=== PATIENT | female | born 1940 | race Caucasian/White ===

== ENCOUNTER 2018-04-13 16:28 | Emergency (ER) | payer MEDICARE, OTHER ==
--- NOTE | 2018-04-16 15:25 | ER ---
DATE SEEN: 04/13/2018 TIME SEEN: 1645 hours. HISTORY OF PRESENT ILLNESS: This pleasant 77-year-old woman, who has Parkinson's, who has had a graduation democrat at the [employer], and she was sitting at the park bench, and she fell backwards. She uses a cane normally. She is fairly active, lives in apartment. She does her own housekeeping and cooking. PAST MEDICAL HISTORY: Significant for Parkinson's, restless legs. She denies hypertension, heart attack, stroke, or asthma. 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 No history of Lewy body dementia or dementia. She has problems with insomnia, and depression. She is not taking antidepressants and anti-insomnia medicines. PREVIOUS SURGERIES: ABS BSO. CURRENT MEDICATIONS: 1. Carbidopa/Levodopa 25/100 t.i.d. 2. Calcium carbonate. 3. Vitamin D. 4. Vitamins. 5. Multivitamins. 6. Mirtazapine 15 mg at bedtime. 7. Colace b.i.d. ALLERGIES: None. REVIEW OF SYSTEMS: HEENT: Negative. She wears glasses. She has no decreased hearing. She is not wearing hearing aids. Previous cataract surgery. CARDIORESPIRATORY: She denies chest pain, shortness of breath, irregular heart beat, pedal edema, syncope, or near syncope. Denies cough or shortness of breath or dyspnea on exertion. GI: Without diarrhea, constipation, blood in the stool, black tarry stool, change in bowels or GERD or hepatitis or gallbladder disease. MUSCULOSKELETAL: Negative. She denies hip or knee arthritis. NEURO: She has gait instability. She uses a cane to stabilize her Parkinson's. She has a slow mental fall away. She is attended by a son and [id number], are very attentive. They are here in emergency room with her. She lives in an apartment and does well and does her own housekeeping and also cooking. PHYSICAL EXAMINATION: VITAL SIGNS: Blood pressure 90/55, heart rate 83, respirations 18, oxygen saturation 94, weight 68.03 kg, BMI 25.7 kg/m2. CONSTITUTIONAL: The patient is sitting in a chair. She has signs of Parkinson's tremor in her upper extremities. No titlatition of her head. She has slight right nasal labial slight droop compared to the other side, the normal side, of her face. PERRLA intact. Previous cataract surgery noted. Eyegrounds normal for age without AV nicking. Pharynx without abnormality. Gag in place. Uvula midline. Tongue midline. She has no fasciculations of the tongue. NECK: No bruits. No thyromegaly or masses in her neck. HEART: S1, S2. S2 is greater than S1. No murmur. LUNGS: Clear without rales, rhonchi, or wheezes. No chest wall discomfort with palpation. ABDOMEN: Nontender. No guarding. No abdominal discomfort. Moderate increased abdominal girth without abnormality in bowel sounds. MUSCULOSKELETAL: No cervical, thoracic, lumbar spinous process or paraspinal muscle tenderness. Deep tendon reflexes present upper and lower extremities. Gait is with slight truncal flexion. She uses a cane and little short steps but she does quite well. Romberg is negative. IMAGING DATA: CT of the head is without abnormality except for microvascular changes and moderate atrophy with widening of the gyri. Cervical spine with some degenerative changes, mild subluxation at C6 and C7 but not abnormal. Mild arthritis. LABORATORY FINDINGS: CBC is normal with a hemoglobin 12.4, white count 5600, PMNs 70, lymphs 20, monos 6.6. Complete metabolic panel is normal except for BUN is 24, creatinine 1.6 with GFR of 31 from her chronic kidney disease stage 3. Not unusual for age. BUN and creatinine ratio is 50. No suggestion of dehydration. Mild elevation of glucose 120 otherwise. AST trace elevated at 38 and alkaline phosphatase trace elevated 52 with a troponin less than 0.017. EKG suggests old anterior myocardial infarction, sinus rhythm, left anterior hemiblock. ASSESSMENT: 1. Fall. 2. Concussion. 3. No evidence for laceration to scalp. 4. Mild hematoma of the scalp posteriorly. 5. Parkinson's. 6. Fall is not unusual for a woman who has Parkinson's to fall backwards, or having gait instability or ataxia. She did not demonstrate ataxia with walking, but has to walk with a cane and has a slight compensatory truncal flexion and short gaits. 7. No hypertension. 8. Old anterior myocardial infarction. PLAN: The patient is advised she can go home. She will follow up with doctor this week. She needs responsible adult to be with her for the next 24 hours and if she is not stable they will need to stay longer and stay with her until she recovers satisfactory and her gait returns to what would be considered normal by the family. Also, when she is sitting, she is to use posterior chair support, and she also needs to have somebody "watch her back" tends to have posterior "festination" and the risk of falling backwards is just as great as falling forward with her Parkinson's. /[id number] VINCENT CONNELLY
== END 2018-04-13 18:00 | disposition home or self-care (01) ==
LOC: FB.ED 16:28
DX: S06.0X0A Concussion without loss of consciousness, initial encounter (principal); S00.03XA Contusion of scalp, initial encounter; G20 Parkinson's disease; I25.2 Old myocardial infarction; N18.9 Chronic kidney disease, unspecified; W17.89XA Other fall from one level to another, initial encounter; Y92.830 Public park as the place of occurrence of the external cause; Z79.899 Other long term (current) drug therapy
CPT/HCPCS: 36415; 70450; 72125; 80053; 84484; 85025; 93005; 93010; 99283; 99284

== ENCOUNTER 2020-02-20 15:20 | Emergency (ER) | payer MEDICARE, OTHER ==
[2020-02-20] MEDS ORDERED: Acetaminophen/HYDROcodone 325-5 MG Tab PO ONE (15:47)
--- NOTE | 2020-02-20 15:54 | EDM.PDOC ---
ED HPI GENERAL MEDICAL PROBLEM - General Chief Complaint: Back Pain or Injury Stated Complaint: FALL Time Seen by Provider: 02/20/20 15:40 Source of Information: Reports: Patient History Limitations: Reports: No Limitations - History of Present Illness INITIAL COMMENTS - FREE TEXT/NARRATIVE: pt has parkinsons, was walking at home when she fell on her left side . denies head injury , has pain in the left rib area and the mid thoracic back . fell about an hour before presentation , was able to get up after fall has no sob but pain is persistent , worse with movement and taking a deep breath Onset: Sudden Onset Date: 02/20/20 Onset Time: 14:50 Duration: Getting Worse, Waxing/Waning Location: Reports: Chest (left lower ribs laterally), Back (thoracic) Quality: Reports: Ache, Dull Severity: Moderate Improves with: Reports: Cold Therapy Worsens with: Reports: Movement Context: Reports: Other (walking at home) Associated Symptoms: Denies: Confusion, Cough, Headaches, Malaise, Nausea/ Vomiting, Shortness of Breath, Syncope, Weakness Left Back Pain Score (Numeric/FACES): 6 Left Chest Pain Score (Numeric/FACES): 6 - Related Data Allergies Allergy/AdvReac Type Severity Reaction Status Date / Time latex Allergy Other Verified 06/11/18 23:31 Home Meds: Home Meds Carbidopa/Levodopa [Carbidopa-Levodopa 25-100] 1 tab PO TID 05/20/14 [History] Calcium Carbonate/Vitamin D3 [Caltrate 600 Plus D3 Tablet] 1 each PO TID [History] Multivitamin [Multiple Vitamins] 1 each PO DAILY 05/21/14 [History] Docusate Sodium [Colace] 100 mg PO BID PRN #30 cap 05/25/14 [Rx] Mirtazapine 15 mg PO BEDTIME 30 Days tablet 05/25/14 [Rx] LORazepam [Ativan] 1 mg PO TID PRN 06/11/18 [History] Sertraline [Zoloft] 50 mg PO DAILY 06/11/18 [History] Past Medical History HEENT History: Reports: Impaired Vision LIVE OUT NANNY History: Reports: Musculoskeletal History: Reports: Other (See Below) Other Musculoskeletal History: has Parkinsons. Neurological History: Reports: Parkinson's Psychiatric History: Reports: Depression Social & Family History - Family History Family Medical History: Noncontributory - Tobacco Use Smoking Status *Q: Never Smoker - Caffeine Use Caffeine Use: Reports: Coffee - Recreational Drug Use Recreational Drug Use: No - Living Situation & Occupation Living situation: Reports: Alone ED ROS GENERAL - Review of Systems Review Of Systems: Comprehensive ROS is negative, except as noted in HPI. Constitutional: Reports: Weakness HEENT: Reports: No Symptoms Respiratory: Denies: Shortness of Breath, Cough, Sputum Cardiovascular: Reports: No Symptoms GI/Abdominal: Reports: No Symptoms Musculoskeletal: Reports: Back Pain, Muscle Pain, Muscle Stiffness Skin: Reports: No Symptoms Neurological: Reports: Difficulty Walking. Denies: Confusion, Dizziness, Headache Psychiatric: Reports: Anxiety Hematologic/Lymphatic: Reports: No Symptoms Immunologic: Reports: No Symptoms ED EXAM, UPPER BACK/NECK PAIN - Physical Exam Exam: See Below Exam Limited By: No Limitations General Appearance: Alert, WD/WN, No Apparent Distress, Other (intention tremors , tremors at rest) Eye Exam: Bilateral Eye: EOMI Ears Exam: Normal External Exam Nose Exam: Normal Inspection Throat/Mouth Exam: Normal Inspection Head Exam: Atraumatic, Normocephalic Neck Exam: Full Range of Motion, Normal Alignment. No: Spinous Processes Tender , Stiff Neck, Tenderness Nexus Criteria: No: Posterior, Midline Cervical Tenderness, Altered Level of Consciousness, Focal Neurological Deficit Cardiovascular/Respiratory: Regular Rate, Rhythm, No Respiratory Distress GI/Abdominal: Soft, Non-Tender, No Organomegaly Back Exam: Decreased Range of Motion, Vertebral Tenderness (in thoracic spin area T6-7) Extremities: Normal Inspection Neurologic: No Motor/Sensory Deficits, Alert, Oriented x 3, Motor Weakness, Other (resting tremors) Psychiatric: Normal Affect Skin Exam: Normal Color, Warm/Dry Lymphatic: No Adenopathy Course - Vital Signs Last Recorded V/S: Last Vital Signs Temp 36.7 C 02/20/20 18:12 Pulse 78 02/20/20 18:12 Resp 18 02/20/20 18:12 BP 157/87 H 02/20/20 18:12 Pulse Ox 94 L 02/20/20 18:12 - Orders/Labs/Meds Meds: Medications Discontinued Medications Generic Name Dose Route Start Last Admin Trade Name Freq PRN Reason Stop Dose Admin Hydrocodone Bitart/Acetaminophen 1 tab 02/20/20 15:47 02/20/20 15:52 [place] 325-5 Mg PO 02/20/20 15:48 1 tab ONETIME ONE Administration - Re-Assessments/Exams Free Text/Narrative Re-Assessment/Exam: 02/20/20 18:00 call made to Jana 02/20/20 18:04 pt accepted for transfer to the ER 02/21/20 02:29 Departure - Departure Time of Disposition: 18:25 Disposition: DC/Tfer to Acute Hospital 02 Condition: Fair Clinical Impression: Multiple rib fractures involving four or more ribs, Compression fracture of thoracic spine, non-traumatic, Parkinson's disease - Discharge Information *PRESCRIPTION DRUG MONITORING PROGRAM REVIEWED*: Not Applicable *COPY OF PRESCRIPTION DRUG MONITORING REPORT IN PATIENT BRANDEN: Not Applicable Referrals: Anoop Oleary MD [Primary Care Provider] - Forms: ED Department Discharge Sepsis Event Note - Evaluation Sepsis Screening Result: No Definite Risk - Focused Exam Vital Signs: Vital Signs Temp Pulse Resp BP Pulse Ox 02/20/20 18:12 36.7 C 78 18 157/87 H 94 L 02/20/20 15:26 36.2 C 95 18 155/80 H 100 Date Exam was Performed: 02/21/20 Time Exam was Performed: 02:29
--- NOTE | 2020-02-20 18:27 | CR ---
INDICATION: Fall. Left rib pain. LEFT RIBS WITH CHEST: An AP view of the chest and 4 additional views of the left ribs were obtained 02/20/20 and compared with chest x-ray of 06/11/18. There are probable linear atelectatic changes at the left lung base. There may be some contusion also in the area of the lingula. Rib fractures are noted at the 5th, 6th, 7th, 8th, and 9th ribs with 2 fractures - lateral and more anteriorly and lateral at the 7th, 8th, and 9th ribs. There is some angulation and offset at the fracture sites. Some of the fractures overlie the area of the spleen as well as the the lower lung field. The heart appeared to be within normal limits in size, but there may be some left ventricular enlargement specifically. The aorta is tortuous with calcification in the arch. The right lung and pleural space were unremarkable. IMPRESSION: 1. Multiple fractures of the left ribs including 5-9 with 2 sites of fracture laterally and anterolaterally at the 7th, 8th, and 9th ribs on the left. 2. Probable ASHD. 3. Appearance of a dextroconvex scoliosis, which may be positional at the thoracolumbar spine. Report was called to Dr. Myers at approximately 1702 hours. [facility]
--- NOTE | 2020-02-20 18:28 | CR ---
INDICATION: Fall. THORACIC SPINE: Frontal and lateral views of the thoracic spine were obtained 02/20/20 - no comparisons. There is an appearance of mild to moderate dextroconvex scoliosis at the lower thoracic - thoracolumbar spine. Anterior compression fracture is noted at what appears to be T9. It is of indeterminate age, most likely old. No finding to strongly suggest a definite acute fracture site was identified. There is demineralization suggesting osteoporosis. Calcifications are noted incidentally in the aorta. Incidentally noted are multiple rib fractures at the 5th through 9th left ribs with fracture sites x2 at the 7th, 8th, and 9th ribs. Report was called to Dr. Myers at approximately 1702 hours. [facility]
== END 2020-02-20 18:37 ==
LOC: FB.ED 15:20
DX: S22.42XA Multiple fractures of ribs, left side, initial encounter for closed fracture (principal); M48.54XA Collapsed vertebra, not elsewhere classified, thoracic region, initial encounter for fracture; G20 Parkinson's disease; Z91.040 Latex allergy status; Z79.899 Other long term (current) drug therapy; W18.30XA Fall on same level, unspecified, initial encounter
CPT/HCPCS: 71101; 72072; 99284; A9270; 99285

== ENCOUNTER 2020-04-01 14:12 | Inpatient (IN) | payer MEDICARE, OTHER ==
--- NOTE | 2020-04-01 14:15 | EDM.PDOC ---
ED HPI GENERAL MEDICAL PROBLEM - General Stated Complaint: WEAKNESS Time Seen by Provider: 04/01/20 14:14 Source of Information: Reports: EMS, Assisted Records History Limitations: Reports: Altered Mental Status (Patient is not really verbally communicative. She is able to answer some questions but cannot provide any meaningful type history.) - History of Present Illness INITIAL COMMENTS - FREE TEXT/NARRATIVE: 79-year-old female who was recently admitted to [facility] and rehabilitation after being at [facility] for a month and then for a short period of time at a rehabilitation facility in [place]. This was following a fall with multiple left-sided rib fractures and complications related to this. She was seen initially for that at this facility and sent to [facility] in [place] for admission. The history that I obtained is obtained through the EMS staff and reports from the long term and is limited secondary to this. She apparently has Parkinson's disease but is usually able to ambulate and isn't verbally communicative and alert and interactive with staff. It was noted beginning may be last night and certainly today that she was less verbally responsive and weak, not being able to walk and requiring assistance to do most things. She also seemed to be more agitated and picking at things that weren't there with her hands. There were no reports of vomiting. She had little if anything to eat or drink today. She did not appear to have any respiratory difficulties but did have low O2 saturations with an O2 saturation measured at 84% (she is not currently on oxygen chronically). There were some reports of a low-grade fever. The patient had not been complaining of any pain to the long term staff and denied any pain to the EMS personnel and also to myself. Her O2 saturations climbed to 96% on 4 L/m via nasal cannula. This is really all the history that I can obtain. There are no other associated signs or symptoms. There are no other modifying factors. Onset: Today (Noted by nursing staff at [facility] today and maybe beginning last night.) Duration: Getting Worse Location: Reports: Other (Not applicable) Quality: Reports: Other (Nonapplicable) Improves with: Reports: None Worsens with: Reports: None Context: Reports: Other (As above) Associated Symptoms: Reports: Fever/Chills, Loss of Appetite Treatments [employer]: Reports: Other (see below) (Family) Left Hip Pain Score (Numeric/FACES): 5 - Related Data Allergies Allergy/AdvReac Type Severity Reaction Status Date / Time latex Allergy Other Verified 04/01/20 15:12 Home Meds: Home Meds Carbidopa/Levodopa [Carbidopa-Levodopa 25-100] 2 tab PO Q6H 05/20/14 [History] Acetaminophen with Codeine [Tylenol with Codeine #3 Tablet] 2 each PO TID [History] Cholecalciferol (Vitamin D3) [Vitamin D3] 50 mcg PO BEDTIME 04/01/20 [History] Gabapentin [Neurontin] 100 mg PO TID 04/01/20 [History] Lidocaine 5% [Lidoderm 5%] 1 patch TOP DAILY 04/01/20 [History] Magnesium Hydroxide [Milk of Magnesia] 30 ml PO DAILY PRN 04/01/20 [History] Melatonin 3 mg PO BEDTIME 04/01/20 [History] Mirtazapine 30 mg PO BEDTIME 04/01/20 [History] Sennosides/Docusate Sodium [Senna-S] 2 tab PO DAILY 04/01/20 [History] Sertraline [Zoloft] 100 mg PO DAILY 04/01/20 [History] Past Medical History HEENT History: Reports: Impaired Vision Musculoskeletal History: Reports: Osteoarthritis Neurological History: Reports: Parkinson's Psychiatric History: Reports: Depression - Past Surgical History GI Surgical History: Reports: Other (See Below) (PEG tube placed.) Social & Family History - Tobacco Use Smoking Status *Q: Unknown Ever Smoked (Nonsmoker) - Caffeine Use Caffeine Use: Reports: Coffee - Living Situation & Occupation Living situation: Reports: Extended Care Facility (Currently residing at [facility] and rehabilitation) ED ROS GENERAL - Review of Systems Review Of Systems: See Below (Patient does answer some questions with single word answers and other information is garnered from the EMS staff and the long term report. Review of systems is limited however because of the patient 's terminal status and being nonverbal.) Reason Not Obtained: Patient with altered mental status and nonverbal Constitutional: Reports: Fever, Weakness Respiratory: Reports: Other (Low O2 saturations) Cardiovascular: Reports: No Symptoms GI/Abdominal: Reports: No Symptoms Neurological: Reports: Weakness Psychiatric: Reports: Agitation Hematologic/Lymphatic: Reports: No Symptoms Immunologic: Reports: Other (Negative COVID 19 test on 03/22/2020.) ED EXAM, GENERAL - Physical Exam Exam: See Below Exam Limited By: No Limitations General Appearance: Alert, WD/WN, Moderate Distress (Seems to be somewhat hyperkinetic. Rest. To stress noted.) Eye Exam: Bilateral Eye: EOMI, Normal Inspection (Sclera are anicteric) Ears: Normal External Exam Ear Exam: Bilateral Ear: Auricle Normal Nose: Normal Inspection, Normal Mucosa, No Blood Throat/Mouth: Normal Voice, No Airway Compromise, Other (Dry mucous membranes) Head: Atraumatic, Normocephalic Neck: Normal Inspection, Supple, Non-Tender, Full Range of Motion Respiratory/Chest: No Respiratory Distress, No Accessory Muscle Use, Chest Non- Tender, Decreased Breath Sounds (On left somewhat.) Cardiovascular: Normal Peripheral Pulses, Regular Rate, Rhythm, No Murmur Peripheral Pulses: 2+: Radial (L), Radial (R), Dorsalis Pedis (L), Dorsalis Pedis (R) GI/Abdominal: Normal Bowel Sounds, Soft, Non-Tender, Distended Back Exam: Normal Inspection Extremities: Non-Tender, Normal Capillary Refill, Pedal Edema Neurological: Alert, No Motor/Sensory Deficits, Disoriented, Slow to Respond, Other (Almost nonverbal) Skin Exam: Warm, Dry, Intact, Normal Color, Rash (In area under her left breast and in her groin areas which is consistent with yeast type rash and has been present for some time per report.) EKG INTERPRETATION EKG Date: 04/01/20 Time: 15:03 Rhythm: NSR Rate (Beats/Min): 93 Delight: LAD-Left Delight Deviation (Left anterior fascicular block) P-Wave: Present ST-T: Other (Diffuse nonspecific ST-T changes) QT: Normal SD/PQ Interval: Poor R-wave progression Comparison: No Change (EKG on 06/11/2018 was read as a flutter but this was due to artifact. There is really no change in this EKG from EKG performed on 2017.) Course - Vital Signs Last Recorded V/S: Last Vital Signs Temp 37.3 C 04/01/20 14:42 Pulse 92 04/01/20 14:42 Resp 20 04/01/20 14:42 BP 137/62 04/01/20 14:42 Pulse Ox 100 04/01/20 14:42 - Orders/Labs/Meds Orders: Active Orders 24 hr Category Date Time Status Admission Status [Patient Status] [ADT] Routine ADT 04/01/20 16:30 Active Patient Status Manage Transfer [TRANSFER] Routine ADT 04/01/20 16:34 Ordered Bladder Scan [RC] ONETIME Care 04/01/20 14:28 Active EKG Documentation Completion [RC] ASDIRECTED Care 04/01/20 14:25 Active Insert Reyes Catheter [Insert Urinary Catheter] [OM.PC] Care 04/01/20 14:30 Ordered Q24H Urinary Catheter Assessment [RC] QSHIFT Care 04/01/20 14:30 Active Vital Signs [RC] Q4H Care 04/01/20 16:32 Active Nothing per Oral Now Diet [DIET] Diet 04/02/20 Breakfast Ordered Ang Chest [CT] Stat Exams 04/01/20 15:37 Taken C DIFFICILE AG/TOXIN W/REFLEX [RM] Stat Lab 04/01/20 16:22 Ordered CULTURE BLOOD [BC] Urgent Lab 04/01/20 14:50 Received CULTURE BLOOD [BC] Urgent Lab 04/01/20 14:55 Received CULTURE URINE [RM] Stat Lab 04/01/20 14:40 Ordered Pharmacy to Dose - Vancomycin Med 04/01/20 16:45 Ordered 1 dose .XX ASDIRECTED Piperacillin/Tazobactam [Zosyn] 3.375 gm Med 04/01/20 16:45 Active Sodium Chloride 0.9% [Normal Saline] 50 ml IV Q6H Blood Culture x2 Reflex Set [OM.PC] Urgent Oth 04/01/20 14:23 Ordered Resuscitation Status Stat Resus Stat 04/01/20 16:32 Ordered EKG 12 Lead [EK] Routine Ther 04/01/20 14:23 Ordered Medication Orders Piperacillin Sod/Tazobactam (Sod 3.375 gm/ Sodium Chloride) 50 mls @ 100 mls/ hr IV Q6H NASREEN Vancomycin HCl (Pharmacy To Dose - Vancomycin) 1 dose .XX ASDIRECTED [facility] Labs: Laboratory Tests 04/01/20 04/01/20 04/01/20 Range/Units 14:19 14:40 14:52 WBC 13.8 H (4.5-12.0) X10-3/uL RBC 3.89 (3.23-5.20) x10(6)uL Hgb 11.0 L (11.5-15.5) g/dL Hct 33.6 D (30.0-51.3) % MCV 86.3 (80-96) fL MCH 28.2 (27.7-33.6) pg MCHC 32.6 (32.2-35.4) g/dL RDW 13.6 (11.5-15.5) % Plt Count 172 (125-369) X10(3)uL MPV 8.1 (7.4-10.4) fL Neut % (Auto) 86.8 H (46-82) % Lymph % (Auto) 6.1 L (13-37) % Grundy % (Auto) 6.5 (4-12) % Eos % (Auto) 0 L (1.0-5.0) % Baso % (Auto) 0 (0-2) % Neut # (Auto) 12.0 H (1.6-8.3) # Lymph # (Auto) 0.8 (0.6-5.0) # Grundy # (Auto) 0.9 (0.0-1.3) # Eos # (Auto) 0.1 (0.0-0.8) # Baso # (Auto) 0.0 (0.0-0.2) # PT (9.0-11.1) sec INR (1.00-1.24) POC VBG pH 7.35 (7.31-7.41) POC VBG pCO2 47.2 (41-51) mmHG POC VBG HCO3 26.0 (23-28) mmol/L POC VBG Total CO2 27 (24-29) mmol/L POC VBG Base Excess 0 (-2-3) mmol/L Sodium (135-145) mmol/L Potassium (3.5-5.3) mmol/L Chloride (100-110) mmol/L Carbon Dioxide (21-32) mmol/L BUN (7-18) mg/dL Creatinine (0.55-1.02) mg/dL Est Cr Clr Drug Dosing mL/min Estimated GFR (MDRD) (>60) BUN/Creatinine Ratio (9-20) Glucose (80-116) mg/dL Lactic Acid (0.4-2.0) mmol/L Calcium (8.6-10.2) mg/dL Magnesium (1.8-2.5) mg/dL Total Bilirubin (0.1-1.3) mg/dL AST (5-25) IU/L ALT (12-36) U/L Alkaline Phosphatase (56-112) IU/L Troponin I (4.0-60.3) pg/mL C-Reactive Protein (0.5-0.9) mg/dL Total Protein (6.0-8.0) g/dL Albumin (3.2-4.6) g/dL Globulin g/dL Albumin/Globulin Ratio Urine Color Yellow (YELLOW) Urine Appearance Cloudy (CLEAR) Urine pH 5.0 (5.0-6.5) Ur Specific [place] 1.015 (1.010-1.025) Urine Protein Negative (NEGATIVE) mg/dL Urine Glucose (UA) Normal (NORMAL) mg/dL Urine Ketones 15 H (NEGATIVE) mg/dL Urine Occult Blood Moderate H (NEGATIVE) Urine Nitrite Negative (NEGATIVE) Urine Bilirubin Negative (NEGATIVE) Urine Urobilinogen Normal (NEGATIVE) mg/dL Ur Leukocyte Esterase Large H (NEGATIVE) Urine RBC 5-10 H (0-5) Urine WBC 50-75 H (0-5) Ur Squamous Epith Cells Occasional (NS,R,O) Urine Bacteria Many H (NS) SARS Virus RNA (PCR) (NEGATIVE) 04/01/20 04/01/20 04/01/20 Range/Units 14:52 14:52 14:52 WBC (4.5-12.0) X10-3/uL RBC (3.23-5.20) x10(6)uL Hgb (11.5-15.5) g/dL Hct (30.0-51.3) % MCV (80-96) fL MCH (27.7-33.6) pg MCHC (32.2-35.4) g/dL RDW (11.5-15.5) % Plt Count (125-369) X10(3)uL MPV (7.4-10.4) fL Neut % (Auto) (46-82) % Lymph % (Auto) (13-37) % Grundy % (Auto) (4-12) % Eos % (Auto) (1.0-5.0) % Baso % (Auto) (0-2) % Neut # (Auto) (1.6-8.3) # Lymph # (Auto) (0.6-5.0) # Grundy # (Auto) (0.0-1.3) # Eos # (Auto) (0.0-0.8) # Baso # (Auto) (0.0-0.2) # PT 11.1 (9.0-11.1) sec INR 1.03 (1.00-1.24) POC VBG pH (7.31-7.41) POC VBG pCO2 (41-51) mmHG POC VBG HCO3 (23-28) mmol/L POC VBG Total CO2 (24-29) mmol/L POC VBG Base Excess (-2-3) mmol/L Sodium 137 (135-145) mmol/L Potassium 4.0 (3.5-5.3) mmol/L Chloride 102 (100-110) mmol/L Carbon Dioxide 27 (21-32) mmol/L BUN 26 H D (7-18) mg/dL Creatinine 1.1 H (0.55-1.02) mg/dL Est Cr Clr Drug Dosing 32.80 mL/min Estimated GFR (MDRD) 48 L (>60) BUN/Creatinine Ratio 23.6 H (9-20) Glucose 111 (80-116) mg/dL Lactic Acid (0.4-2.0) mmol/L Calcium 8.9 (8.6-10.2) mg/dL Magnesium 1.6 L (1.8-2.5) mg/dL Total Bilirubin 0.7 (0.1-1.3) mg/dL AST 27 H D (5-25) IU/L ALT 7 L D (12-36) U/L Alkaline Phosphatase 103 (56-112) IU/L Troponin I 10.0 (4.0-60.3) pg/mL C-Reactive Protein 11.4 H* (0.5-0.9) mg/dL Total Protein 7.2 (6.0-8.0) g/dL Albumin 3.1 L (3.2-4.6) g/dL Globulin 4.1 g/dL Albumin/Globulin Ratio 0.8 Urine Color (YELLOW) Urine Appearance (CLEAR) Urine pH (5.0-6.5) Ur Specific Bom[place] (1.010-1.025) Urine Protein (NEGATIVE) mg/dL Urine Glucose (UA) (NORMAL) mg/dL Urine Ketones (NEGATIVE) mg/dL Urine Occult Blood (NEGATIVE) Urine Nitrite (NEGATIVE) Urine Bilirubin (NEGATIVE) Urine Urobilinogen (NEGATIVE) mg/dL Ur Leukocyte Esterase (NEGATIVE) Urine RBC (0-5) Urine WBC (0-5) Ur Squamous Epith Cells (NS,R,O) Urine Bacteria (NS) SARS Virus RNA (PCR) (NEGATIVE) 04/01/20 04/01/20 Range/Units 14:52 14:55 WBC (4.5-12.0) X10-3/uL RBC (3.23-5.20) x10(6)uL Hgb (11.5-15.5) g/dL Hct (30.0-51.3) % MCV (80-96) fL MCH (27.7-33.6) pg MCHC (32.2-35.4) g/dL RDW (11.5-15.5) % Plt Count (125-369) X10(3)uL MPV (7.4-10.4) fL Neut % (Auto) (46-82) % Lymph % (Auto) (13-37) % Grundy % (Auto) (4-12) % Eos % (Auto) (1.0-5.0) % Baso % (Auto) (0-2) % Neut # (Auto) (1.6-8.3) # Lymph # (Auto) (0.6-5.0) # Grundy # (Auto) (0.0-1.3) # Eos # (Auto) (0.0-0.8) # Baso # (Auto) (0.0-0.2) # PT (9.0-11.1) sec INR (1.00-1.24) POC VBG pH (7.31-7.41) POC VBG pCO2 (41-51) mmHG POC VBG HCO3 (23-28) mmol/L POC VBG Total CO2 (24-29) mmol/L POC VBG Base Excess (-2-3) mmol/L Sodium (135-145) mmol/L Potassium (3.5-5.3) mmol/L Chloride (100-110) mmol/L Carbon Dioxide (21-32) mmol/L BUN (7-18) mg/dL Creatinine (0.55-1.02) mg/dL Est Cr Clr Drug Dosing mL/min Estimated GFR (MDRD) (>60) BUN/Creatinine Ratio (9-20) Glucose (80-116) mg/dL Lactic Acid 0.7 (0.4-2.0) mmol/L Calcium (8.6-10.2) mg/dL Magnesium (1.8-2.5) mg/dL Total Bilirubin (0.1-1.3) mg/dL AST (5-25) IU/L ALT (12-36) U/L Alkaline Phosphatase (56-112) IU/L Troponin I (4.0-60.3) pg/mL C-Reactive Protein (0.5-0.9) mg/dL Total Protein (6.0-8.0) g/dL Albumin (3.2-4.6) g/dL Globulin g/dL Albumin/Globulin Ratio Urine Color (YELLOW) Urine Appearance (CLEAR) Urine pH (5.0-6.5) Ur Specific [place] (1.010-1.025) Urine Protein (NEGATIVE) mg/dL Urine Glucose (UA) (NORMAL) mg/dL Urine Ketones (NEGATIVE) mg/dL Urine Occult Blood (NEGATIVE) Urine Nitrite (NEGATIVE) Urine Bilirubin (NEGATIVE) Urine Urobilinogen (NEGATIVE) mg/dL Ur Leukocyte Esterase (NEGATIVE) Urine RBC (0-5) Urine WBC (0-5) Ur Squamous Epith Cells (NS,R,O) Urine Bacteria (NS) SARS Virus RNA (PCR) Negative (NEGATIVE) Meds: Medications Generic Name Dose Route Start Last Admin Trade Name Freq PRN Reason Stop Dose Admin Piperacillin Sod/Tazobactam 50 mls @ 100 mls/hr 04/01/20 16:45 Sod 3.375 gm/ Sodium Chloride IV Q6H NASREEN Vancomycin HCl 1 dose 04/01/20 16:45 Pharmacy To Dose - Vancomycin .XX ASDIRECTED NASREEN Discontinued Medications Generic Name Dose Route Start Last Admin Trade Name Freq PRN Reason Stop Dose Admin Sodium Chloride 500 mls @ 999 mls/hr 04/01/20 14:27 04/01/20 15:13 Normal Saline IV 04/01/20 14:57 999 mls/hr .BOLUS ONE Administration Iopamidol 100 ml 04/01/20 15:45 04/01/20 16:10 Isovue-370 (76%) IV 04/01/20 15:46 75 ml . DIRECTED ONE Administration - Radiology Interpretation Free Text/Narrative:: Portable chest x-ray didn't show haziness on the left lower lung consistent with pneumonia. CTA of chest showed - Re-Assessments/Exams Free Text/Narrative Re-Assessment/Exam: 04/01/20 15:30: Patient remains hypoxic and requiring 2 L/m via nasal cannula. Her blood pressure and pulse has remained stable. She did have acute urinary retention and we placed a Reyes catheter. The urine is grossly infected. The serum lactate was normal. He appears to have a pneumonia on the left side. However, because of her hypoxia, her immobile state and low-grade fever, I will send the patient for CTA of the chest to rule out pulmonary emboli. She will need admission for IV therapy with IV fluids, IV antibiotics and supplemental oxygen. The patient is a DNR/DNI but wishes to have reversible/treatable problems addressed. I have discussed this with the patient and she appears to be giving consent for admission. I will await the results of the CT of the chest and discussed patient's case with Dr. Hilton for admission. I will treat the patient with Zosyn and vancomycin. 04/01/20 16:30: Rapid COVID 19 test was negative. CTA of the chest showed no evidence of pulmonary emboli. It did show bilateral pneumonia. I called and discussed the patient's case with Dr. Hilton. Will be admitted for IV antibiotics, IV fluids and respiratory support as above. I have placed interim admission orders and Dr. Hilton will be seeing the patient soon. The patient will require greater than 2 midnight hospital stay to complete her plan of care. This could not safely be done as an outpatient. Departure - Departure Time of Disposition: 16:40 Disposition: Admitted As Inpatient 66 Condition: Fair Clinical Impression: SIRS (systemic inflammatory response syndrome) Bilateral pneumonia Qualifiers: Pneumonia type: due to unspecified organism Lung location: unspecified part of lung Qualified Code(s): J18.9 - Pneumonia, unspecified organism Respiratory failure with hypoxia Qualifiers: Chronicity: acute Qualified Code(s): J96.01 - Acute respiratory failure with hypoxia UTI (urinary tract infection) Qualifiers: Urinary tract infection type: site unspecified Hematuria presence: without hematuria Qualified Code(s): N39.0 - Urinary tract infection, site not specified - Discharge Information Referrals: Anoop Oleary MD [Primary Care Provider] - Sepsis Event Note - Focused Exam Vital Signs: Vital Signs Temp Pulse Resp BP Pulse Ox 04/01/20 14:42 37.3 C 92 20 137/62 100 Date Exam was Performed: 04/01/20 Time Exam was Performed: 16:36 - My Orders Last 24 Hours: My Active Orders 04/01/20 14:23 Blood Culture x2 Reflex Set [OM.PC] Urgent EKG 12 Lead [EK] Routine 04/01/20 14:25 EKG Documentation Completion [RC] ASDIRECTED 04/01/20 14:28 Bladder Scan [RC] ONETIME 04/01/20 14:30 Insert Reyes Catheter [Insert Urinary Catheter] [OM.PC] Q24H Urinary Catheter Assessment [RC] QSHIFT 04/01/20 14:40 CULTURE URINE [RM] Stat 04/01/20 14:50 CULTURE BLOOD [BC] Urgent 04/01/20 14:55 CULTURE BLOOD [BC] Urgent 04/01/20 15:37 Ang Chest [CT] Stat 04/01/20 16:22 C DIFFICILE AG/TOXIN W/REFLEX [RM] Stat 04/01/20 16:30 Admission Status [Patient Status] [ADT] Routine 04/01/20 16:32 Vital Signs [RC] Q4H Resuscitation Status Stat 04/01/20 16:34 Patient Status Manage Transfer [TRANSFER] Routine 04/01/20 16:45 Pharmacy to Dose - Vancomycin 1 dose .XX ASDIRECTED Piperacillin/Tazobactam [Zosyn] 3.375 gm Sodium Chloride 0.9% [Normal Saline] 50 ml IV Q6H 04/02/20 Breakfast Nothing per Oral Now Diet [DIET] - Assessment/Plan Last 24 Hours: My Active Orders 04/01/20 14:23 Blood Culture x2 Reflex Set [OM.PC] Urgent EKG 12 Lead [EK] Routine 04/01/20 14:25 EKG Documentation Completion [RC] ASDIRECTED 04/01/20 14:28 Bladder Scan [RC] ONETIME 04/01/20 14:30 Insert Reyes Catheter [Insert Urinary Catheter] [OM.PC] Q24H Urinary Catheter Assessment [RC] QSHIFT 04/01/20 14:40 CULTURE URINE [RM] Stat 04/01/20 14:50 CULTURE BLOOD [BC] Urgent 04/01/20 14:55 CULTURE BLOOD [BC] Urgent 04/01/20 15:37 Ang Chest [CT] Stat 04/01/20 16:22 C DIFFICILE AG/TOXIN W/REFLEX [RM] Stat 04/01/20 16:30 Admission Status [Patient Status] [ADT] Routine 04/01/20 16:32 Vital Signs [RC] Q4H Resuscitation Status Stat 04/01/20 16:34 Patient Status Manage Transfer [TRANSFER] Routine 04/01/20 16:45 Pharmacy to Dose - Vancomycin 1 dose .XX ASDIRECTED Piperacillin/Tazobactam [Zosyn] 3.375 gm Sodium Chloride 0.9% [Normal Saline] 50 ml IV Q6H 04/02/20 Breakfast Nothing per Oral Now Diet [DIET]
[2020-04-01] MEDS ORDERED: Sodium Chloride 0.9% 500 ML IV ONE (14:27)
[2020-04-01] MEDS ORDERED: Iopamidol 755 Mg/ML 100 ML Bottle IV ONE (15:45)
--- NOTE | 2020-04-01 16:18 | CR ---
INDICATION: Weakness, low oxygen saturations. CHEST, ONE VIEW: AP upright portable view of the chest was obtained 04/01/2020 and compared with 02/20/2020 and 06/11/2018. The heart appears to be slightly enlarged or at the upper limits of normal in size. The aorta is tortuous with calcification in the arch and descending portion. Overlying EKG leads are noted. At the left lung base, there are pleuroparenchymal changes which may be on the basis of pneumonia and pleuritis, possibly with some atelectasis. The study is somewhat limited due to motion-patient was unable to hold her breath apparently. IMPRESSION: 1. Left basilar pleuroparenchymal change, may be on the basis of pneumonia, pleuritis, and possibly atelectasis. 2. ASHD. MTDD
[2020-04-01] MEDS: Piperacillin/Tazobactam 3.375 GM in Sodium Chloride 0.9% 50 ML IV SCH ×2 (16:43→22:41)
--- NOTE | 2020-04-01 17:00 | CT ---
INDICATION: Hypoxia. COMPUTERIZED TOMOGRAPHY ANGIOGRAPHY OF THE CHEST WITH CONTRAST FOR PULMONARY ANGIOGRAPHY: Spiral 1.25 mm axial sections were obtained through the chest with sagittal and coronal reconstructions utilizing 75 mL Isovue 370 at 3 mL/ sec with no comparisons. Total exam DLP was 447.30 mGy-cm. No evidence of pulmonary emboli could be identified. The heart appeared somewhat enlarged. There is consolidation and/or atelectasis of portions of the left lower lobe with a moderate sized pleural effusion. Findings may be on the basis of pneumonia and pleuritis, possibly with some atelectasis and should be correlated clinically. There also appears to be some minimal infiltrate in the right upper lobe anteromedially and in the superolateral aspect of the right upper lobe, which may be on the basis of areas of patchy pneumonia and/or fibrosis. Relatively minimal pleuroparenchymal changes suggested at the right lower lobe, which may be fibrotic in nature but could also represent some areas of pneumonia and pleuritis. The upper abdomen included on the study revealed calcifications in splenic and right renal artery, as well as the aorta. Evidence of cholecystectomy is noted. Calcifications were also noted in the descending thoracic aorta. IMPRESSION: 1. No evidence of PE. 2. Bibasilar-bilateral pleuroparenchymal changes, most notable at the right lower lobe, which may be on the basis of pneumonia and pleuritis, although some atelectasis and fibrosis may also be present. 3. ASHD. 4. Post cholecystectomy. 5. ASD. Report was called to Dr. Ding at 1624 hours. [facility]
[2020-04-01] MEDS: Sodium Chloride 0.9% 1,000 ML IV SCH (17:30)
[2020-04-01] MEDS ORDERED: Vancomycin/Dextrose 5%-Water 200 ML IV SCH (17:30)
--- NOTE | 2020-04-01 20:57 | HP ---
ADMISSION DATE: 04/01/2020 REASON OF VISIT: Respiratory difficulty, pneumonia. HISTORY OF PRESENT ILLNESS: Gavi Vu is a 79-year-old female, resident of [facility], was brought to [facility] ER. She is a more recent admission to [facility]. Convoluted history of fall, pneumonia, respiratory compromise, progressive Parkinson's. She was checked at the retirement today and her O2 saturation was markedly low. On no chronic oxygen therapy. Suspicion for fever that are not documented, increasing withdrawal, lethargy, and a sense of reduced well-being. Was seen at [facility] ER, by Dr. Ding. Radiographs revealed bilateral pneumonia, laboratory studies revealed elevated white count with left shift, and need for hospitalization. MEDICATIONS: Present daily medications include: 1. Tylenol with codeine 2 p.o. t.i.d. 2. Vitamin D3 50 mcg p.o. at bedtime, nutrition. 3. Lidocaine patch one daily. 4. Milk of magnesia 30 mL daily. 5. Carbidopa 25/100 two tabs q.6 hours. 6. 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 7. Melatonin 3 mg at bedtime, sleep enhancement. 8. Remeron 30 mg at bedtime, sleep enhancement. 9. Senna-S 2 p.o. daily constipation. 10.Sertraline 100 mg 1 p.o. daily mood stabilizer. ALLERGIES: Latex allergy. No other medication, environmental, or other allergies other than latex. PAST MEDICAL HISTORY: Difficult to ascertain, conversation limited, history limited. By report, she has had a previous left hip fracture. Chronic illnesses include Parkinson's and mood disorder. SOCIAL HISTORY: , 3 grown children. Lives at [facility], work situation not explained. Nonsmoker. No alcohol. No illicit drug use. REVIEW OF SYSTEMS: Attempts to review of systems were unsuccessful. PHYSICAL EXAMINATION: VITAL SIGNS: 37.5, 96, 119/56, 18, and 96. GENERAL: Difficult speech, slow with movement, parkinsonian observation. HEENT: Funduscopic benign. Bright TMs. Clear nasal discharge. Mouth and oropharynx clear. Tongue midline. NECK: Benign. Thyroid small. No JVD. No carotid bruits. CHEST: On auscultation, clear all lung huitron. HEART: On auscultation, no ectopy or murmur. BREASTS: Atrophic without masses, nipple changes, skin changes, or adenopathy. ABDOMEN: Benign. Reyes catheter in place. Rash beneath right breast in the lower abdomen. NEUROLOGICAL: Speech was difficult. Neurologically, parkinsonian posturing. LABORATORY STUDIES: White count 13,800, hemoglobin 11.0, hematocrit 33.6, left shift. PH 7.35, pCO2 of 47. Electrolytes satisfactory. Creatinine 1.1, BUN 26, GFR 48. C-reactive protein 11.4. Urinalysis noted a large leukocytes, 5 to 10 red cells, 50 to 75 white cells. Radiographs: Bilateral pneumonia. ASSESSMENT: 1. Bilateral pneumonia. 2. Suspect urinary tract infection. 3. Parkinson's disease. PLAN: Rhj-[id number]-bmieebzx pneumonia, we will place on vancomycin and Zosyn. Aggressive fluids, hydration, and interval care and treatment. /[id number] 2019 JORDEN/SANDEEP
[2020-04-01] MEDS: Carbidopa/Levodopa 25-100 MG Tab PO SCH (21:00)
[2020-04-01] MEDS: Mirtazapine 30 MG Tab PO SCH (21:28)
[2020-04-01] MEDS: Melatonin 3 MG Tab PO SCH (21:28)
[2020-04-01] MEDS: Gabapentin 100 MG Cap PO SCH (21:28)
[2020-04-01] MEDS ORDERED: Acetaminophen 650 MG Supp RECTAL PRN (21:51)
[2020-04-02] MEDS: Carbidopa/Levodopa 25-100 MG Tab PO SCH ×4 (01:50→20:17)
[2020-04-02] MEDS: Piperacillin/Tazobactam 3.375 GM in Sodium Chloride 0.9% 50 ML IV SCH ×2 (04:18→10:23)
[2020-04-02] MEDS: Sodium Chloride 0.9% 1,000 ML IV SCH ×2 (04:38→14:47)
[2020-04-02] MEDS: Acetaminophen 325 MG Tab PO PRN (05:04)
--- NOTE | 2020-04-02 07:49 | PCM.PN ---
- General Info Date of Service: 04/02/20 Admission Dx/Problem (Free Text): The patient states she does not feel well. But she cannot tell me what she means by this. She says she has little cough. She has some diarrhea. She denies fevers, chills, runny nose, chest pain. The nurses report a rash in her groin and under her left breast. - Patient Data Vitals - Most Recent: Last Vital Signs Temp 97.8 F 04/02/20 04:00 Pulse 82 04/02/20 04:00 Resp 18 04/02/20 04:00 BP 100/46 L 04/02/20 04:00 Pulse Ox 99 04/02/20 04:00 Weight - Most Recent: 140 lb 12.8 oz I&O - Last 24 Hours: Intake & Output 04/01/20 04/02/20 04/02/20 22:59 06:59 14:59 Intake Total 834 850 Output Total 300 200 Balance 534 650 Lab Results Last 24 Hours: Laboratory Results - last 24 hr 04/01/20 04/01/20 04/01/20 Range/Units 14:19 14:40 14:52 WBC 13.8 H (4.5-12.0) X10-3/uL RBC 3.89 (3.23-5.20) x10(6)uL Hgb 11.0 L (11.5-15.5) g/dL Hct 33.6 D (30.0-51.3) % MCV 86.3 (80-96) fL MCH 28.2 (27.7-33.6) pg MCHC 32.6 (32.2-35.4) g/dL RDW 13.6 (11.5-15.5) % Plt Count 172 (125-369) X10(3)uL MPV 8.1 (7.4-10.4) fL Neut % (Auto) 86.8 H (46-82) % Lymph % (Auto) 6.1 L (13-37) % Dixie % (Auto) 6.5 (4-12) % Eos % (Auto) 0 L (1.0-5.0) % Baso % (Auto) 0 (0-2) % Neut # (Auto) 12.0 H (1.6-8.3) # Lymph # (Auto) 0.8 (0.6-5.0) # Dixie # (Auto) 0.9 (0.0-1.3) # Eos # (Auto) 0.1 (0.0-0.8) # Baso # (Auto) 0.0 (0.0-0.2) # PT (9.0-11.1) sec INR (1.00-1.24) POC VBG pH 7.35 (7.31-7.41) POC VBG pCO2 47.2 (41-51) mmHG POC VBG HCO3 26.0 (23-28) mmol/L POC VBG Total CO2 27 (24-29) mmol/L POC VBG Base Excess 0 (-2-3) mmol/L Sodium (135-145) mmol/L Potassium (3.5-5.3) mmol/L Chloride (100-110) mmol/L Carbon Dioxide (21-32) mmol/L BUN (7-18) mg/dL Creatinine (0.55-1.02) mg/dL Est Cr Clr Drug Dosing mL/min Estimated GFR (MDRD) (>60) BUN/Creatinine Ratio (9-20) Glucose (80-116) mg/dL Lactic Acid (0.4-2.0) mmol/L Calcium (8.6-10.2) mg/dL Magnesium (1.8-2.5) mg/dL Total Bilirubin (0.1-1.3) mg/dL AST (5-25) IU/L ALT (12-36) U/L Alkaline Phosphatase (56-112) IU/L Troponin I (4.0-60.3) pg/mL C-Reactive Protein (0.5-0.9) mg/dL Total Protein (6.0-8.0) g/dL Albumin (3.2-4.6) g/dL Globulin g/dL Albumin/Globulin Ratio Urine Color Yellow (YELLOW) Urine Appearance Cloudy (CLEAR) Urine pH 5.0 (5.0-6.5) Ur Specific [place] 1.015 (1.010-1.025) Urine Protein Negative (NEGATIVE) mg/dL Urine Glucose (UA) Normal (NORMAL) mg/dL Urine Ketones 15 H (NEGATIVE) mg/dL Urine Occult Blood Moderate H (NEGATIVE) Urine Nitrite Negative (NEGATIVE) Urine Bilirubin Negative (NEGATIVE) Urine Urobilinogen Normal (NEGATIVE) mg/dL Ur Leukocyte Esterase Large H (NEGATIVE) Urine RBC 5-10 H (0-5) Urine WBC 50-75 H (0-5) Ur Squamous Epith Cells Occasional (NS,R,O) Urine Bacteria Many H (NS) SARS Virus RNA (PCR) (NEGATIVE) 04/01/20 04/01/20 04/01/20 Range/Units 14:52 14:52 14:52 WBC (4.5-12.0) X10-3/uL RBC (3.23-5.20) x10(6)uL Hgb (11.5-15.5) g/dL Hct (30.0-51.3) % MCV (80-96) fL MCH (27.7-33.6) pg MCHC (32.2-35.4) g/dL RDW (11.5-15.5) % Plt Count (125-369) X10(3)uL MPV (7.4-10.4) fL Neut % (Auto) (46-82) % Lymph % (Auto) (13-37) % Dixie % (Auto) (4-12) % Eos % (Auto) (1.0-5.0) % Baso % (Auto) (0-2) % Neut # (Auto) (1.6-8.3) # Lymph # (Auto) (0.6-5.0) # Dixie # (Auto) (0.0-1.3) # Eos # (Auto) (0.0-0.8) # Baso # (Auto) (0.0-0.2) # PT 11.1 (9.0-11.1) sec INR 1.03 (1.00-1.24) POC VBG pH (7.31-7.41) POC VBG pCO2 (41-51) mmHG POC VBG HCO3 (23-28) mmol/L POC VBG Total CO2 (24-29) mmol/L POC VBG Base Excess (-2-3) mmol/L Sodium 137 (135-145) mmol/L Potassium 4.0 (3.5-5.3) mmol/L Chloride 102 (100-110) mmol/L Carbon Dioxide 27 (21-32) mmol/L BUN 26 H D (7-18) mg/dL Creatinine 1.1 H (0.55-1.02) mg/dL Est Cr Clr Drug Dosing 32.80 mL/min Estimated GFR (MDRD) 48 L (>60) BUN/Creatinine Ratio 23.6 H (9-20) Glucose 111 (80-116) mg/dL Lactic Acid (0.4-2.0) mmol/L Calcium 8.9 (8.6-10.2) mg/dL Magnesium 1.6 L (1.8-2.5) mg/dL Total Bilirubin 0.7 (0.1-1.3) mg/dL AST 27 H D (5-25) IU/L ALT 7 L D (12-36) U/L Alkaline Phosphatase 103 (56-112) IU/L Troponin I 10.0 (4.0-60.3) pg/mL C-Reactive Protein 11.4 H* (0.5-0.9) mg/dL Total Protein 7.2 (6.0-8.0) g/dL Albumin 3.1 L (3.2-4.6) g/dL Globulin 4.1 g/dL Albumin/Globulin Ratio 0.8 Urine Color (YELLOW) Urine Appearance (CLEAR) Urine pH (5.0-6.5) Ur Specific [place] (1.010-1.025) Urine Protein (NEGATIVE) mg/dL Urine Glucose (UA) (NORMAL) mg/dL Urine Ketones (NEGATIVE) mg/dL Urine Occult Blood (NEGATIVE) Urine Nitrite (NEGATIVE) Urine Bilirubin (NEGATIVE) Urine Urobilinogen (NEGATIVE) mg/dL Ur Leukocyte Esterase (NEGATIVE) Urine RBC (0-5) Urine WBC (0-5) Ur Squamous Epith Cells (NS,R,O) Urine Bacteria (NS) SARS Virus RNA (PCR) (NEGATIVE) 04/01/20 04/01/20 Range/Units 14:52 14:55 WBC (4.5-12.0) X10-3/uL RBC (3.23-5.20) x10(6)uL Hgb (11.5-15.5) g/dL Hct (30.0-51.3) % MCV (80-96) fL MCH (27.7-33.6) pg MCHC (32.2-35.4) g/dL RDW (11.5-15.5) % Plt Count (125-369) X10(3)uL MPV (7.4-10.4) fL Neut % (Auto) (46-82) % Lymph % (Auto) (13-37) % Dixie % (Auto) (4-12) % Eos % (Auto) (1.0-5.0) % Baso % (Auto) (0-2) % Neut # (Auto) (1.6-8.3) # Lymph # (Auto) (0.6-5.0) # Dixie # (Auto) (0.0-1.3) # Eos # (Auto) (0.0-0.8) # Baso # (Auto) (0.0-0.2) # PT (9.0-11.1) sec INR (1.00-1.24) POC VBG pH (7.31-7.41) POC VBG pCO2 (41-51) mmHG POC VBG HCO3 (23-28) mmol/L POC VBG Total CO2 (24-29) mmol/L POC VBG Base Excess (-2-3) mmol/L Sodium (135-145) mmol/L Potassium (3.5-5.3) mmol/L Chloride (100-110) mmol/L Carbon Dioxide (21-32) mmol/L BUN (7-18) mg/dL Creatinine (0.55-1.02) mg/dL Est Cr Clr Drug Dosing mL/min Estimated GFR (MDRD) (>60) BUN/Creatinine Ratio (9-20) Glucose (80-116) mg/dL Lactic Acid 0.7 (0.4-2.0) mmol/L Calcium (8.6-10.2) mg/dL Magnesium (1.8-2.5) mg/dL Total Bilirubin (0.1-1.3) mg/dL AST (5-25) IU/L ALT (12-36) U/L Alkaline Phosphatase (56-112) IU/L Troponin I (4.0-60.3) pg/mL C-Reactive Protein (0.5-0.9) mg/dL Total Protein (6.0-8.0) g/dL Albumin (3.2-4.6) g/dL Globulin g/dL Albumin/Globulin Ratio Urine Color (YELLOW) Urine Appearance (CLEAR) Urine pH (5.0-6.5) Ur Specific [place] (1.010-1.025) Urine Protein (NEGATIVE) mg/dL Urine Glucose (UA) (NORMAL) mg/dL Urine Ketones (NEGATIVE) mg/dL Urine Occult Blood (NEGATIVE) Urine Nitrite (NEGATIVE) Urine Bilirubin (NEGATIVE) Urine Urobilinogen (NEGATIVE) mg/dL Ur Leukocyte Esterase (NEGATIVE) Urine RBC (0-5) Urine WBC (0-5) Ur Squamous Epith Cells (NS,R,O) Urine Bacteria (NS) SARS Virus RNA (PCR) Negative (NEGATIVE) Pieter Results Last 24 Hours: Microbiology 04/01/20 18:50 C. difficile Antigen & Toxins A,B - Final Stool / Feces Med Orders - Current: Current Medications Acetaminophen (Tylenol) 650 mg PO Q4H PRN PRN Reason: Fever Greater Than 101 Last Admin: 04/02/20 05:04 Dose: 650 mg Acetaminophen (Tylenol) 650 mg RECTAL Q6H PRN PRN Reason: Fever Last Admin: 04/01/20 22:09 Dose: 650 mg Acetaminophen/Codeine Phosphate (Tylenol With Codeine No.3 300mg/30mg) 2 tab PO TID [facility] Carbidopa/Levodopa (Sinemet 25-100 Mg) 2 tab PO Q6H [facility] Last Admin: 04/02/20 01:50 Dose: 2 tab Cholecalciferol (Vitamin D3) 50 mcg PO BEDTIME [facility] Clotrimazole (Lotrimin Af 1% Crm) 0 gm TOP BID [facility] Enoxaparin Sodium (Lovenox) 30 mg SUBCUT Q24H [facility] Gabapentin (Neurontin) 100 mg PO TID [facility] Last Admin: 04/01/20 21:28 Dose: 100 mg Piperacillin Sod/Tazobactam (Sod 3.375 gm/ Sodium Chloride) 50 mls @ 100 mls/ hr IV Q6H [facility] Last Admin: 04/02/20 04:18 Dose: 100 mls/hr Sodium Chloride (Normal Saline) 1,000 mls @ 70 mls/hr IV ASDIRECTED [facility] Last Admin: 04/02/20 04:38 Dose: 100 mls/hr Lidocaine (Lidoderm 5%) 700 mg TOP DAILY [facility] Melatonin (Melatonin) 3 mg PO BEDTIME [facility] Last Admin: 04/01/20 21:28 Dose: 3 mg Mirtazapine (Remeron) 30 mg PO BEDTIME [facility] Last Admin: 04/01/20 21:28 Dose: 30 mg Miscellaneous Information (Remove Patch) 1 ea TRDERM BEDTIME [facility] Senna/Docusate Sodium (Senna Plus) 2 tab PO DAILY [facility] Sertraline HCl (Zoloft) 100 mg PO DAILY [facility] Vancomycin HCl (Vancocin 125 Mg/5 Ml Soln) 125 mg PO QID [facility] Discontinued Medications Sodium Chloride (Normal Saline) 500 mls @ 999 mls/hr IV .BOLUS ONE Stop: 04/01/20 14:57 Last Admin: 04/01/20 15:13 Dose: 999 mls/hr Vancomycin HCl (Vancomycin 1 Gm/200 Ml In D5w) 200 mls @ 200 mls/hr IV Q24H [facility] Last Admin: 04/01/20 18:05 Dose: 200 mls/hr Iopamidol (Isovue-370 (76%)) 100 ml IV . DIRECTED ONE Stop: 04/01/20 15:46 Last Admin: 04/01/20 16:10 Dose: 75 ml Vancomycin HCl (Pharmacy To Dose - Vancomycin) 1 dose .XX ASDIRECTED [facility] - Exam General: Alert, Cooperative. No: Oriented Lungs: Clear to Auscultation, Normal Respiratory Effort. No: Crackles, Rales, Rhonchi, Wheezing Cardiovascular: Regular Rate, Regular Rhythm, No Murmurs Extremities: No Pedal Edema Psy/Mental Status: Labile Mood Sepsis Event Note - Evaluation Sepsis Screening Result: No Definite Risk - Focused Exam Vital Signs: Vital Signs Temp Pulse Resp BP Pulse Ox 04/02/20 04:00 97.8 F 82 18 100/46 L 99 04/02/20 01:00 100.2 F 86 18 105/46 L 97 04/01/20 20:00 101.1 F H 102 H 18 125/68 95 Date Exam was Performed: 04/02/20 Time Exam was Performed: 07:45 - Problem List & Annotations (1) C. difficile diarrhea SNOMED Code(s): 5914878715973 Code(s): A04.72 - ENTEROCOLITIS D/T CLOSTRIDIUM DIFFICILE, NOT SPCF RECUR Status: Acute Current Visit: Yes (2) Contact dermatitis SNOMED Code(s): 00693393 Code(s): L25.9 - UNSPECIFIED CONTACT DERMATITIS, UNSPECIFIED CAUSE Status: Acute Current Visit: Yes (3) Palliative care status SNOMED Code(s): 864104659 Code(s): Z51.5 - ENCOUNTER FOR PALLIATIVE CARE Status: Acute Current Visit: Yes (4) Bilateral pneumonia SNOMED Code(s): 262326046 Code(s): J18.9 - PNEUMONIA, UNSPECIFIED ORGANISM Status: Acute Current Visit: Yes Qualifiers: Pneumonia type: due to unspecified organism Lung location: unspecified part of lung Qualified Code(s): J18.9 - Pneumonia, unspecified organism (5) UTI (urinary tract infection) SNOMED Code(s): 11980650 Code(s): N39.0 - URINARY TRACT INFECTION, SITE NOT SPECIFIED Status: Acute Current Visit: Yes Qualifiers: Urinary tract infection type: site unspecified Hematuria presence: without hematuria Qualified Code(s): N39.0 - Urinary tract infection, site not specified - Problem List Review Problem List Initiated/Reviewed/Updated: Yes - My Orders Last 24 Hours: My Active Orders 04/02/20 07:32 DC Reyes Catheter [Urinary Catheter Removal] [RC] Per Unit Routine 04/02/20 07:34 Up With Assistance [RC] ASDIRECTED 04/02/20 07:45 Enoxaparin [Lovenox] 30 mg SUBCUT Q24H 04/02/20 09:00 Acetaminophen/Codeine [Tylenol with Codeine No.3 300MG/30MG] 2 tab PO TID Clotrimazole [Lotrimin AF 1% Crm] 0 gm TOP BID Lidocaine 5% [Lidoderm 5%] 700 mg TOP DAILY Vancomycin [Vancocin 125 MG/5 ML Soln] 125 mg PO QID 04/02/20 21:00 Cholecalciferol (Vitamin D3) [Vitamin D3] 50 mcg PO BEDTIME Remove Patch 1 ea TRDERM BEDTIME 04/02/20 Lunch Regular Diet [DIET] - Plan Plan:: 1. Stop IV vancomycin and/or 125 mg 4 times a day by mouth for the C. difficile. 2.palitive care status 3.Lovenox for VTSE proph. 4. Lotrisone under the breasts twice a day until rash is gone into the groin. 5. DC Reyes catheter. 6. Up with assist. 7. Continue Zosyn 8. Decrease IV rate to 70 mL an hour.
[2020-04-02] MEDS: Clotrimazole 1% Crm 15 GM Tube TOP SCH ×2 (10:16→20:17)
[2020-04-02] MEDS: Lidocaine 5% 700 MG Patch TOP SCH (10:16)
[2020-04-02] MEDS: Enoxaparin 30 MG/0.3 ML Syringe SUBCUT SCH (10:17)
[2020-04-02] MEDS: Sertraline 100 MG Tab PO SCH (10:17)
[2020-04-02] MEDS: Vancomycin 125 MG Cap PO SCH ×4 (10:17→20:19)
[2020-04-02] MEDS: Gabapentin 100 MG Cap PO SCH ×3 (10:21→20:18)
[2020-04-02] MEDS: Acetaminophen/Codeine 300-30 MG Tab PO SCH ×3 (10:22→20:19)
[2020-04-02] MEDS ORDERED: Levofloxacin/Dextrose 5%-Water 500 MG in Premix Bag 1 BAG IV SCH (18:00)
[2020-04-02] MEDS: Melatonin 3 MG Tab PO SCH (20:18)
[2020-04-02] MEDS: Mirtazapine 30 MG Tab PO SCH (20:18)
[2020-04-02] MEDS: Cholecalciferol (Vitamin D3) 25 MCG Tab PO SCH (20:20)
[2020-04-03] MEDS: Carbidopa/Levodopa 25-100 MG Tab PO SCH ×6 (02:36→20:52)
[2020-04-03] MEDS: Sodium Chloride 0.9% 1,000 ML IV SCH ×2 (02:36→16:48)
--- NOTE | 2020-04-03 08:24 | PCM.PN ---
- General Info Date of Service: 04/03/20 Admission Dx/Problem (Free Text): patient has no concerns. She doesn't know her she is. she denies runny nose, fevers, chills, cough, dysuria, pyuria, hematuria or diarrhea. Patient's had a rash under her breasts and her groin. She started having a rash over trunk more papular. We stopped the Zosyn and changes it to Levaquin. I kept the vancomycin will because estrogen deficit. - Patient Data Vitals - Most Recent: Last Vital Signs Temp 100.1 F 04/03/20 04:40 Pulse 97 04/03/20 04:40 Resp 18 04/03/20 04:40 BP 123/62 04/03/20 04:40 Pulse Ox 92 L 04/03/20 04:40 Weight - Most Recent: 140 lb 12.8 oz I&O - Last 24 Hours: Intake & Output 04/02/20 04/03/20 04/03/20 22:59 06:59 14:59 Intake Total 1600 698 Output Total 150 200 Balance 1450 498 Pieter Results Last 24 Hours: Microbiology 04/01/20 14:40 Urine Culture - Preliminary Urine, Catheterized Gram Negative Rods 04/01/20 14:55 Aerobic Blood Culture - Preliminary Blood - Venous NO GROWTH AFTER 1 DAY Anaerobic Blood Culture - Preliminary NO GROWTH AFTER 1 DAY 04/01/20 14:50 Aerobic Blood Culture - Preliminary Blood - Venous - Lab Draw NO GROWTH AFTER 1 DAY Anaerobic Blood Culture - Preliminary NO GROWTH AFTER 1 DAY Med Orders - Current: Current Medications Acetaminophen (Tylenol) 650 mg PO Q4H PRN PRN Reason: Fever Greater Than 101 Last Admin: 04/02/20 05:04 Dose: 650 mg Acetaminophen (Tylenol) 650 mg RECTAL Q6H PRN PRN Reason: Fever Last Admin: 04/01/20 22:09 Dose: 650 mg Acetaminophen/Codeine Phosphate (Tylenol With Codeine No.3 300mg/30mg) 2 tab PO TID [facility] Last Admin: 04/02/20 20:19 Dose: 2 tab Carbidopa/Levodopa (Sinemet 25-100 Mg) 2 tab PO QIDACANDBED [facility] Cholecalciferol (Vitamin D3) 50 mcg PO BEDTIME [facility] Last Admin: 04/02/20 20:20 Dose: 50 mcg Clotrimazole (Clotrimazole 1%) 0 gm TOP BID [facility] Last Admin: 04/02/20 20:17 Dose: 1 dose Enoxaparin Sodium (Lovenox) 30 mg SUBCUT Q24H [facility] Last Admin: 04/02/20 10:17 Dose: 30 mg Gabapentin (Neurontin) 100 mg PO TID [facility] Last Admin: 04/02/20 20:18 Dose: 100 mg Sodium Chloride (Normal Saline) 1,000 mls @ 70 mls/hr IV ASDIRECTED [facility] Last Admin: 04/03/20 02:36 Dose: 100 mls/hr Levofloxacin/Dextrose 250 mg/ (Premix) 50 mls @ 50 mls/hr IV Q24H [facility] Lidocaine (Lidoderm 5%) 700 mg TOP DAILY [facility] Last Admin: 04/02/20 10:16 Dose: 700 mg Melatonin (Melatonin) 3 mg PO BEDTIME [facility] Last Admin: 04/02/20 20:18 Dose: 3 mg Mirtazapine (Remeron) 30 mg PO BEDTIME [facility] Last Admin: 04/02/20 20:18 Dose: 30 mg Miscellaneous Information (Remove Patch) 1 ea TRDERM BEDTIME [facility] Last Admin: 04/02/20 20:18 Dose: 1 ea Senna/Docusate Sodium (Senna Plus) 2 tab PO DAILY [facility] Sertraline HCl (Zoloft) 100 mg PO DAILY [facility] Last Admin: 04/02/20 10:17 Dose: 100 mg Vancomycin HCl (Vancomycin) 125 mg PO QID [facility] Last Admin: 04/02/20 20:19 Dose: 125 mg Discontinued Medications Carbidopa/Levodopa (Sinemet 25-100 Mg) 2 tab PO Q6H [facility] Last Admin: 04/03/20 05:23 Dose: Not Given Enoxaparin Sodium (Lovenox) 40 mg SUBCUT DAILY [facility] Sodium Chloride (Normal Saline) 500 mls @ 999 mls/hr IV .BOLUS ONE Stop: 04/01/20 14:57 Last Admin: 04/01/20 15:13 Dose: 999 mls/hr Piperacillin Sod/Tazobactam (Sod 3.375 gm/ Sodium Chloride) 50 mls @ 100 mls/ hr IV Q6H [facility] Last Admin: 04/02/20 10:23 Dose: 100 mls/hr Vancomycin HCl (Vancomycin 1 Gm/200 Ml In D5w) 200 mls @ 200 mls/hr IV Q24H [facility] Last Admin: 04/01/20 18:05 Dose: 200 mls/hr Levofloxacin/Dextrose 500 mg/ (Premix) 100 mls @ 100 mls/hr IV Q24H [facility] Last Admin: 04/02/20 18:16 Dose: 100 mls/hr Iopamidol (Isovue-370 (76%)) 100 ml IV . DIRECTED ONE Stop: 04/01/20 15:46 Last Admin: 04/01/20 16:10 Dose: 75 ml Vancomycin HCl (Pharmacy To Dose - Vancomycin) 1 dose .XX ASDIRECTED [facility] - Exam General: Alert, Cooperative. No: Oriented Lungs: Clear to Auscultation, Normal Respiratory Effort. No: Crackles, Rales, Rhonchi Cardiovascular: Regular Rate, Regular Rhythm, No Murmurs Extremities: No Pedal Edema Skin: Rash Sepsis Event Note - Evaluation Sepsis Screening Result: No Definite Risk - Focused Exam Vital Signs: Vital Signs Temp Pulse Resp BP Pulse Ox 04/03/20 04:40 100.1 F 97 18 123/62 92 L 04/03/20 00:00 98.4 F 90 18 109/49 L 92 L 04/02/20 23:30 99.1 F Date Exam was Performed: 04/03/20 Time Exam was Performed: 08:21 - Problem List & Annotations (1) C. difficile diarrhea SNOMED Code(s): 4313070942622 Code(s): A04.72 - ENTEROCOLITIS D/T CLOSTRIDIUM DIFFICILE, NOT SPCF RECUR Status: Acute Current Visit: Yes (2) Contact dermatitis SNOMED Code(s): 56695807 Code(s): L25.9 - UNSPECIFIED CONTACT DERMATITIS, UNSPECIFIED CAUSE Status: Acute Current Visit: Yes (3) Palliative care status SNOMED Code(s): 191692303 Code(s): Z51.5 - ENCOUNTER FOR PALLIATIVE CARE Status: Acute Current Visit: Yes (4) Bilateral pneumonia SNOMED Code(s): 147740546 Code(s): J18.9 - PNEUMONIA, UNSPECIFIED ORGANISM Status: Acute Current Visit: Yes Qualifiers: Pneumonia type: due to unspecified organism Lung location: unspecified part of lung Qualified Code(s): J18.9 - Pneumonia, unspecified organism (5) UTI (urinary tract infection) SNOMED Code(s): 76458730 Code(s): N39.0 - URINARY TRACT INFECTION, SITE NOT SPECIFIED Status: Acute Current Visit: Yes Qualifiers: Urinary tract infection type: site unspecified Hematuria presence: without hematuria Qualified Code(s): N39.0 - Urinary tract infection, site not specified - Problem List Review Problem List Initiated/Reviewed/Updated: No - My Orders Last 24 Hours: My Active Orders 04/02/20 07:32 DC Reyes Catheter [Urinary Catheter Removal] [RC] Per Unit Routine 04/02/20 07:34 Up With Assistance [RC] ASDIRECTED 04/02/20 07:45 Enoxaparin [Lovenox] 30 mg SUBCUT Q24H 04/02/20 09:00 Acetaminophen/Codeine [Tylenol with Codeine No.3 300MG/30MG] 2 tab PO TID Clotrimazole [Clotrimazole 1%] 0 gm TOP BID Lidocaine 5% [Lidoderm 5%] 700 mg TOP DAILY Vancomycin 125 mg PO QID 04/02/20 21:00 Cholecalciferol (Vitamin D3) [Vitamin D3] 50 mcg PO BEDTIME Remove Patch 1 ea TRDERM BEDTIME 04/03/20 08:21 CBC WITH AUTO DIFF [HEME] Routine COMPREHENSIVE METABOLIC PN,CMP [CHEM] Routine 04/03/20 18:00 Levofloxacin/Dextrose 5%-Water [Levaquin in D5W 250 MG/50 ML] 250 mg Premix Bag 1 bag IV Q24H - Plan Plan:: 1.this could be a drug eruption. Not sure this time. Continue to observe. 2. CMP and CBC. 3. Up in chair and ambulate with assist if patient tolerates it. 4. Continue current care.
[2020-04-03] MEDS ORDERED: Enoxaparin 40 MG/0.4 ML Syringe SUBCUT SCH (09:00)
[2020-04-03] MEDS: Sertraline 100 MG Tab PO SCH (09:01)
[2020-04-03] MEDS: Lidocaine 5% 700 MG Patch TOP SCH (09:02)
[2020-04-03] MEDS: Clotrimazole 1% Crm 15 GM Tube TOP SCH ×2 (09:02→21:03)
[2020-04-03] MEDS: Vancomycin 125 MG Cap PO SCH ×4 (09:02→20:52)
[2020-04-03] MEDS: Enoxaparin 30 MG/0.3 ML Syringe SUBCUT SCH (09:02)
[2020-04-03] MEDS: Acetaminophen/Codeine 300-30 MG Tab PO SCH ×3 (09:15→20:52)
[2020-04-03] MEDS: Gabapentin 100 MG Cap PO SCH ×3 (09:16→20:50)
[2020-04-03] MEDS ORDERED: Cetirizine 10 MG Tab PO PRN (10:21)
[2020-04-03] MEDS: Potassium Chloride 10 MEQ Tab.ER PO SCH (17:46)
[2020-04-03] MEDS ORDERED: Levofloxacin/Dextrose 5%-Water 250 MG in Premix Bag 1 BAG IV SCH (18:00)
[2020-04-03] MEDS: Melatonin 3 MG Tab PO SCH (20:50)
[2020-04-03] MEDS: Mirtazapine 30 MG Tab PO SCH (20:51)
[2020-04-03] MEDS: Cholecalciferol (Vitamin D3) 25 MCG Tab PO SCH (20:52)
[2020-04-04] MEDS: Sodium Chloride 0.9% 1,000 ML IV SCH (07:23)
[2020-04-04] MEDS: Carbidopa/Levodopa 25-100 MG Tab PO SCH ×4 (07:38→20:39)
--- NOTE | 2020-04-04 07:47 | PCM.PN ---
- General Info Date of Service: 04/04/20 Admission Dx/Problem (Free Text): Patient states she has an occasional cough. She has no other complaints. She says her rash doesn't itch except for little on her shoulder. She denies fevers , chills, abdominal pain. - Patient Data Vitals - Most Recent: Last Vital Signs Temp 97.9 F 04/04/20 03:55 Pulse 88 04/04/20 03:55 Resp 16 04/04/20 03:55 BP 117/59 L 04/04/20 03:55 Pulse Ox 92 L 04/04/20 03:55 Weight - Most Recent: 140 lb 12.8 oz I&O - Last 24 Hours: Intake & Output 04/03/20 04/04/20 04/04/20 22:59 06:59 14:59 Intake Total 606 659 Output Total 100 150 Balance 506 509 Lab Results Last 24 Hours: Laboratory Results - last 24 hr 04/03/20 04/03/20 Range/Units 09:25 09:25 WBC 16.4 H (4.5-12.0) X10-3/uL RBC 3.69 (3.23-5.20) x10(6)uL Hgb 10.3 L (11.5-15.5) g/dL Hct 31.9 (30.0-51.3) % MCV 86.5 (80-96) fL MCH 27.9 (27.7-33.6) pg MCHC 32.3 (32.2-35.4) g/dL RDW 13.2 (11.5-15.5) % Plt Count 206 (125-369) X10(3)uL MPV 7.6 (7.4-10.4) fL Add Manual Diff Yes Neutrophils % (Manual) 91 H (46-82) % Band Neutrophils % 1 (0-6) % Lymphocytes % (Manual) 4 L (13-37) % Monocytes % (Manual) 4 (4-12) % Sodium 142 (135-145) mmol/L Potassium 3.4 L (3.5-5.3) mmol/L Chloride 108 D (100-110) mmol/L Carbon Dioxide 20 L (21-32) mmol/L BUN 18 (7-18) mg/dL Creatinine 0.9 (0.55-1.02) mg/dL Est Cr Clr Drug Dosing 40.09 mL/min Estimated GFR (MDRD) > 60 (>60) BUN/Creatinine Ratio 20.0 (9-20) Glucose 116 (80-116) mg/dL Calcium 8.0 L (8.6-10.2) mg/dL Total Bilirubin 0.4 (0.1-1.3) mg/dL AST 20 D (5-25) IU/L ALT < 6 L D (12-36) U/L Alkaline Phosphatase 104 (56-112) IU/L Total Protein 6.3 (6.0-8.0) g/dL Albumin 2.3 L (3.2-4.6) g/dL Globulin 4.0 g/dL Albumin/Globulin Ratio 0.6 Pieter Results Last 24 Hours: Microbiology 04/01/20 14:40 Urine Culture - Final Urine, Catheterized Escherichia Coli 04/01/20 14:55 Aerobic Blood Culture - Preliminary Blood - Venous NO GROWTH AFTER 2 DAYS Anaerobic Blood Culture - Preliminary NO GROWTH AFTER 2 DAYS 04/01/20 14:50 Aerobic Blood Culture - Preliminary Blood - Venous - Lab Draw NO GROWTH AFTER 2 DAYS Anaerobic Blood Culture - Preliminary NO GROWTH AFTER 2 DAYS Med Orders - Current: Current Medications Acetaminophen (Tylenol) 650 mg PO Q4H PRN PRN Reason: Fever Greater Than 101 Last Admin: 04/02/20 05:04 Dose: 650 mg Acetaminophen (Tylenol) 650 mg RECTAL Q6H PRN PRN Reason: Fever Last Admin: 04/01/20 22:09 Dose: 650 mg Acetaminophen/Codeine Phosphate (Tylenol With Codeine No.3 300mg/30mg) 2 tab PO TID [facility] Last Admin: 04/03/20 20:52 Dose: 2 tab Carbidopa/Levodopa (Sinemet 25-100 Mg) 2 tab PO QIDACANDBED [facility] Last Admin: 04/04/20 07:38 Dose: 2 tab Cetirizine HCl (Zyrtec) 10 mg PO DAILY PRN PRN Reason: Itching Last Admin: 04/03/20 12:09 Dose: 10 mg Cholecalciferol (Vitamin D3) 50 mcg PO BEDTIME [facility] Last Admin: 04/03/20 20:52 Dose: 50 mcg Clotrimazole (Clotrimazole 1%) 0 gm TOP BID [facility] Last Admin: 04/03/20 21:03 Dose: 1 dose Enoxaparin Sodium (Lovenox) 30 mg SUBCUT Q24H [facility] Last Admin: 04/03/20 09:02 Dose: 30 mg Gabapentin (Neurontin) 100 mg PO TID [facility] Last Admin: 04/03/20 20:50 Dose: 100 mg Levofloxacin (Levaquin) 250 mg PO Q24H [facility] Lidocaine (Lidoderm 5%) 700 mg TOP DAILY [facility] Last Admin: 04/03/20 09:02 Dose: 700 mg Melatonin (Melatonin) 3 mg PO BEDTIME [facility] Last Admin: 04/03/20 20:50 Dose: 3 mg Mirtazapine (Remeron) 30 mg PO BEDTIME [facility] Last Admin: 04/03/20 20:51 Dose: 30 mg Miscellaneous Information (Remove Patch) 1 ea TRDERM BEDTIME [facility] Last Admin: 04/03/20 20:51 Dose: 1 ea Potassium Chloride (Klor-Con 10) 10 meq PO DAILY [facility] Last Admin: 04/03/20 17:46 Dose: 10 meq Senna/Docusate Sodium (Senna Plus) 2 tab PO DAILY [facility] Sertraline HCl (Zoloft) 100 mg PO DAILY [facility] Last Admin: 04/03/20 09:01 Dose: 100 mg Vancomycin HCl (Vancomycin) 125 mg PO QID [facility] Last Admin: 04/03/20 20:52 Dose: 125 mg Discontinued Medications Carbidopa/Levodopa (Sinemet 25-100 Mg) 2 tab PO Q6H [facility] Last Admin: 04/03/20 05:23 Dose: Not Given Enoxaparin Sodium (Lovenox) 40 mg SUBCUT DAILY [facility] Sodium Chloride (Normal Saline) 500 mls @ 999 mls/hr IV .BOLUS ONE Stop: 04/01/20 14:57 Last Admin: 04/01/20 15:13 Dose: 999 mls/hr Piperacillin Sod/Tazobactam (Sod 3.375 gm/ Sodium Chloride) 50 mls @ 100 mls/ hr IV Q6H [facility] Last Admin: 04/02/20 10:23 Dose: 100 mls/hr Vancomycin HCl (Vancomycin 1 Gm/200 Ml In D5w) 200 mls @ 200 mls/hr IV Q24H [facility] Last Admin: 04/01/20 18:05 Dose: 200 mls/hr Sodium Chloride (Normal Saline) 1,000 mls @ 70 mls/hr IV ASDIRECTED [facility] Last Admin: 04/04/20 07:23 Dose: 100 mls/hr Levofloxacin/Dextrose 500 mg/ (Premix) 100 mls @ 100 mls/hr IV Q24H [facility] Last Admin: 04/02/20 18:16 Dose: 100 mls/hr Levofloxacin/Dextrose 250 mg/ (Premix) 50 mls @ 50 mls/hr IV Q24H [facility] Last Admin: 04/03/20 17:49 Dose: 50 mls/hr Iopamidol (Isovue-370 (76%)) 100 ml IV . DIRECTED ONE Stop: 04/01/20 15:46 Last Admin: 04/01/20 16:10 Dose: 75 ml Vancomycin HCl (Pharmacy To Dose - Vancomycin) 1 dose .XX ASDIRECTED [facility] - Exam General: Alert, Cooperative. No: Oriented Lungs: Clear to Auscultation, Normal Respiratory Effort Cardiovascular: Regular Rate, Regular Rhythm, No Murmurs Extremities: No Pedal Edema Skin: Rash Sepsis Event Note - Evaluation Sepsis Screening Result: No Definite Risk - Focused Exam Vital Signs: Vital Signs Temp Pulse Resp BP Pulse Ox 04/04/20 03:55 97.9 F 88 16 117/59 L 92 L 04/04/20 00:00 98 F 82 18 112/67 93 L 04/03/20 20:00 98.1 F 18 109/66 93 L Date Exam was Performed: 04/04/20 Time Exam was Performed: 07:45 - Problem List & Annotations (1) C. difficile diarrhea SNOMED Code(s): 8051284584712 Code(s): A04.72 - ENTEROCOLITIS D/T CLOSTRIDIUM DIFFICILE, NOT SPCF RECUR Status: Acute Current Visit: Yes (2) Contact dermatitis SNOMED Code(s): 55965510 Code(s): L25.9 - UNSPECIFIED CONTACT DERMATITIS, UNSPECIFIED CAUSE Status: Acute Current Visit: Yes (3) Palliative care status SNOMED Code(s): 927666118 Code(s): Z51.5 - ENCOUNTER FOR PALLIATIVE CARE Status: Acute Current Visit: Yes (4) Bilateral pneumonia SNOMED Code(s): 366564950 Code(s): J18.9 - PNEUMONIA, UNSPECIFIED ORGANISM Status: Acute Current Visit: Yes Qualifiers: Pneumonia type: due to unspecified organism Lung location: unspecified part of lung Qualified Code(s): J18.9 - Pneumonia, unspecified organism (5) UTI (urinary tract infection) SNOMED Code(s): 09906810 Code(s): N39.0 - URINARY TRACT INFECTION, SITE NOT SPECIFIED Status: Acute Current Visit: Yes Qualifiers: Urinary tract infection type: site unspecified Hematuria presence: without hematuria Qualified Code(s): N39.0 - Urinary tract infection, site not specified - Problem List Review Problem List Initiated/Reviewed/Updated: Yes - My Orders Last 24 Hours: My Active Orders 04/03/20 10:21 Cetirizine [ZyrTEC] 10 mg PO DAILY PRN 04/03/20 17:30 Potassium Chloride [Klor-Con 10] 10 meq PO DAILY 04/04/20 07:43 Convert IV to Saline Lock [OM.PC] Routine 04/04/20 07:45 levoFLOXacin [Levaquin] 250 mg PO Q24H - Plan Plan:: 1. Change Levaquin to by mouth 250 mg a day. 2. Change vitals every shift. 3. Anticipate discharge tomorrow if the patient continues to improve.
[2020-04-04] MEDS: Vancomycin 125 MG Cap PO SCH ×4 (08:58→20:40)
[2020-04-04] MEDS: Acetaminophen/Codeine 300-30 MG Tab PO SCH ×3 (08:58→20:40)
[2020-04-04] MEDS: Sertraline 100 MG Tab PO SCH (08:58)
[2020-04-04] MEDS: Enoxaparin 30 MG/0.3 ML Syringe SUBCUT SCH (08:59)
[2020-04-04] MEDS: Gabapentin 100 MG Cap PO SCH ×3 (08:59→20:39)
[2020-04-04] MEDS: Lidocaine 5% 700 MG Patch TOP SCH (08:59)
[2020-04-04] MEDS: Clotrimazole 1% Crm 15 GM Tube TOP SCH ×2 (08:59→21:45)
[2020-04-04] MEDS: Potassium Chloride 10 MEQ Tab.ER PO SCH (09:50)
[2020-04-04] MEDS: Acetaminophen 325 MG Tab PO PRN (17:35)
[2020-04-04] MEDS ORDERED: Levofloxacin 250 MG Tab PO SCH (18:00)
[2020-04-04] MEDS: Melatonin 3 MG Tab PO SCH (20:39)
[2020-04-04] MEDS: Mirtazapine 30 MG Tab PO SCH (20:39)
[2020-04-04] MEDS: Cholecalciferol (Vitamin D3) 25 MCG Tab PO SCH (20:40)
[2020-04-05] MEDS: Carbidopa/Levodopa 25-100 MG Tab PO SCH ×2 (06:56→11:28)
--- NOTE | 2020-04-05 08:37 | PCM.PN ---
- General Info Date of Service: 04/05/20 Admission Dx/Problem (Free Text): Patient has not had the best oral intake. But she has little dizziness but denies fevers, chills, cough dysuria, pyuria, hematuria or diarrhea. - Patient Data Vitals - Most Recent: Last Vital Signs Temp 97.7 F 04/05/20 00:00 Pulse 88 04/05/20 00:00 Resp 18 04/05/20 00:00 BP 122/57 L 04/05/20 00:00 Pulse Ox 93 L 04/05/20 00:00 Weight - Most Recent: 140 lb 12.8 oz I&O - Last 24 Hours: Intake & Output 04/04/20 04/05/20 04/05/20 22:59 06:59 14:59 Intake Total 100 450 Output Total 0 0 Balance 100 450 Pieter Results Last 24 Hours: Microbiology 04/01/20 14:50 Aerobic Blood Culture - Preliminary Blood - Venous - Lab Draw NO GROWTH AFTER 3 DAYS Anaerobic Blood Culture - Preliminary NO GROWTH AFTER 3 DAYS 04/01/20 14:55 Aerobic Blood Culture - Preliminary Blood - Venous NO GROWTH AFTER 3 DAYS Anaerobic Blood Culture - Preliminary NO GROWTH AFTER 3 DAYS Med Orders - Current: Current Medications Acetaminophen (Tylenol) 650 mg PO Q4H PRN PRN Reason: Fever Greater Than 101 Last Admin: 04/04/20 17:35 Dose: 650 mg Acetaminophen (Tylenol) 650 mg RECTAL Q6H PRN PRN Reason: Fever Last Admin: 04/01/20 22:09 Dose: 650 mg Acetaminophen/Codeine Phosphate (Tylenol With Codeine No.3 300mg/30mg) 2 tab PO TID [facility] Last Admin: 04/04/20 20:40 Dose: 2 tab Carbidopa/Levodopa (Sinemet 25-100 Mg) 2 tab PO QIDACANDBED [facility] Last Admin: 04/05/20 06:56 Dose: 2 tab Cetirizine HCl (Zyrtec) 10 mg PO DAILY PRN PRN Reason: Itching Last Admin: 04/03/20 12:09 Dose: 10 mg Cholecalciferol (Vitamin D3) 50 mcg PO BEDTIME [facility] Last Admin: 04/04/20 20:40 Dose: 50 mcg Clotrimazole (Clotrimazole 1%) 0 gm TOP BID [facility] Last Admin: 04/04/20 21:45 Dose: 1 dose Enoxaparin Sodium (Lovenox) 30 mg SUBCUT Q24H [facility] Last Admin: 04/04/20 08:59 Dose: 30 mg Gabapentin (Neurontin) 100 mg PO TID [facility] Last Admin: 04/04/20 20:39 Dose: 100 mg Levofloxacin (Levaquin) 250 mg PO Q24H [facility] Last Admin: 04/04/20 17:35 Dose: 250 mg Lidocaine (Lidoderm 5%) 700 mg TOP DAILY [facility] Last Admin: 04/04/20 08:59 Dose: 700 mg Melatonin (Melatonin) 3 mg PO BEDTIME [facility] Last Admin: 04/04/20 20:39 Dose: 3 mg Mirtazapine (Remeron) 30 mg PO BEDTIME [facility] Last Admin: 04/04/20 20:39 Dose: 30 mg Miscellaneous Information (Remove Patch) 1 ea TRDERM BEDTIME [facility] Last Admin: 04/04/20 20:36 Dose: 1 ea Potassium Chloride (Klor-Con 10) 10 meq PO DAILY [facility] Last Admin: 04/04/20 09:50 Dose: 10 meq Senna/Docusate Sodium (Senna Plus) 2 tab PO DAILY [facility] Sertraline HCl (Zoloft) 100 mg PO DAILY [facility] Last Admin: 04/04/20 08:58 Dose: 100 mg Vancomycin HCl (Vancomycin) 125 mg PO QID [facility] Last Admin: 04/04/20 20:40 Dose: 125 mg Discontinued Medications Carbidopa/Levodopa (Sinemet 25-100 Mg) 2 tab PO Q6H [facility] Last Admin: 04/03/20 05:23 Dose: Not Given Enoxaparin Sodium (Lovenox) 40 mg SUBCUT DAILY [facility] Sodium Chloride (Normal Saline) 500 mls @ 999 mls/hr IV .BOLUS ONE Stop: 04/01/20 14:57 Last Admin: 04/01/20 15:13 Dose: 999 mls/hr Piperacillin Sod/Tazobactam (Sod 3.375 gm/ Sodium Chloride) 50 mls @ 100 mls/ hr IV Q6H [facility] Last Admin: 04/02/20 10:23 Dose: 100 mls/hr Vancomycin HCl (Vancomycin 1 Gm/200 Ml In D5w) 200 mls @ 200 mls/hr IV Q24H [facility] Last Admin: 04/01/20 18:05 Dose: 200 mls/hr Sodium Chloride (Normal Saline) 1,000 mls @ 70 mls/hr IV ASDIRECTED [facility] Last Admin: 04/04/20 07:23 Dose: 100 mls/hr Levofloxacin/Dextrose 500 mg/ (Premix) 100 mls @ 100 mls/hr IV Q24H [facility] Last Admin: 04/02/20 18:16 Dose: 100 mls/hr Levofloxacin/Dextrose 250 mg/ (Premix) 50 mls @ 50 mls/hr IV Q24H [facility] Last Admin: 04/03/20 17:49 Dose: 50 mls/hr Iopamidol (Isovue-370 (76%)) 100 ml IV . DIRECTED ONE Stop: 04/01/20 15:46 Last Admin: 04/01/20 16:10 Dose: 75 ml Vancomycin HCl (Pharmacy To Dose - Vancomycin) 1 dose .XX ASDIRECTED [facility] - Exam General: Alert, Oriented, Cooperative Lungs: Clear to Auscultation, Normal Respiratory Effort Cardiovascular: Regular Rate, Regular Rhythm, No Murmurs Extremities: No Pedal Edema Skin: Other (Erythematous macular papular rash on the trunk improving.) Sepsis Event Note - Evaluation Sepsis Screening Result: No Definite Risk - Focused Exam Vital Signs: Vital Signs Temp Pulse Resp BP Pulse Ox 04/05/20 00:00 97.7 F 88 18 122/57 L 93 L Date Exam was Performed: 04/05/20 Time Exam was Performed: 08:35 - Problem List & Annotations (1) C. difficile diarrhea SNOMED Code(s): 5420428415402 Code(s): A04.72 - ENTEROCOLITIS D/T CLOSTRIDIUM DIFFICILE, NOT SPCF RECUR Status: Acute Current Visit: Yes (2) Contact dermatitis SNOMED Code(s): 53026631 Code(s): L25.9 - UNSPECIFIED CONTACT DERMATITIS, UNSPECIFIED CAUSE Status: Acute Current Visit: Yes (3) Palliative care status SNOMED Code(s): 007121381 Code(s): Z51.5 - ENCOUNTER FOR PALLIATIVE CARE Status: Acute Current Visit: Yes (4) Bilateral pneumonia SNOMED Code(s): 582100109 Code(s): J18.9 - PNEUMONIA, UNSPECIFIED ORGANISM Status: Acute Current Visit: Yes Qualifiers: Pneumonia type: due to unspecified organism Lung location: unspecified part of lung Qualified Code(s): J18.9 - Pneumonia, unspecified organism (5) UTI (urinary tract infection) SNOMED Code(s): 08443963 Code(s): N39.0 - URINARY TRACT INFECTION, SITE NOT SPECIFIED Status: Acute Current Visit: Yes Qualifiers: Urinary tract infection type: site unspecified Hematuria presence: without hematuria Qualified Code(s): N39.0 - Urinary tract infection, site not specified - Problem List Review Problem List Initiated/Reviewed/Updated: Yes - My Orders Last 24 Hours: My Active Orders 04/04/20 07:43 Convert IV to Saline Lock [OM.PC] Routine 04/04/20 09:14 DC Reyes Catheter [Urinary Catheter Removal] [RC] Per Unit Routine 04/04/20 16:06 Discontinue Saline Lock [Peripheral IV Discontinue] [OM.PC] Routine 04/04/20 18:00 levoFLOXacin [Levaquin] 250 mg PO Q24H 04/05/20 08:23 CORONAVIRUS COVID-19, RAFAEL Stat - Plan Plan:: 1. [facility] to the [facility] with her same medications and Levaquin and oral Vanco.. 2. She was going to have her feeding tube hold and I did not pull it here. They may use it to give her some fluids until she has full recovery. 3. The rash is improving possibly from the Zosyn.
--- NOTE | 2020-04-05 09:08 | PCM.SN.2 ---
- Free Text/Narrative Note: When I went to see the patient secondary. Patient states she feels short of breath and looks anxious. We repositioned her and she says she's scared. She feels like she's not getting better and she is dizzy. Proceed with a chest x-ray , EKG, troponin and d-dimer before she is discharged. Think most likely this is anxiety.
[2020-04-05] MEDS: Acetaminophen/Codeine 300-30 MG Tab PO SCH (09:53)
[2020-04-05] MEDS: Enoxaparin 30 MG/0.3 ML Syringe SUBCUT SCH (09:53)
[2020-04-05] MEDS: Potassium Chloride 10 MEQ Tab.ER PO SCH (09:53)
[2020-04-05] MEDS: Gabapentin 100 MG Cap PO SCH (09:54)
[2020-04-05] MEDS: Clotrimazole 1% Crm 15 GM Tube TOP SCH (09:55)
[2020-04-05] MEDS: Lidocaine 5% 700 MG Patch TOP SCH (09:56)
[2020-04-05] MEDS: Vancomycin 125 MG Cap PO SCH ×2 (09:57→14:13)
[2020-04-05] MEDS: Sertraline 100 MG Tab PO SCH (09:57)
--- NOTE | 2020-04-05 13:07 | PCM.DCSUM1 ---
Discharge Summary - Hospital Course Free Text/Narrative:: Hospital course-patient was admitted with IV fluids, oral vancomycin, Zosyn and a Reyes cath was placed. She had diarrhea stools and they were checked and she had C. diff. The oral ankle was stopped and by mouth Vanco was started. Patient had a CT scan of the chest showed maybe a little pneumonia but not sure but no PEs. Patient was very confused to begin with but mentation became better as she was here every day. Urine was positive for infection. She started getting a rash of the day too. I felt she needed the vancomycin so I stopped the Zosyn. She has some itching but was pretty well under control flow Zyrtec. We presume that she had a reaction to Zosyn but cannot actually be certain. We switched her to Levaquin 250 mg. Patient continued to improve. Oral intake was low. She was supposed to be seen in the clinic to have her G- tube taken out. We left it in and we talked this over with her and her son. The day of discharge she was fine when I saw her but later became little short of breath. Check a troponin, EKG no acute changes chest x-ray showed a little pneumonitis possibly pneumonia maybe a little CHF. CHF is doubtful because patient didn't have a lot of oral intake and the IV fluids were stopped. D- dimer is slightly elevated but she only had a CT chest angiogram which was negative. She'll be discharged to [facility] with vancomycin oral and Levaquin oral. We left the G-tube in medication is to be hydrated well she recovers. In a future appointment take his see Dr. Oleary and have it pulled if they would like. Brief History: 9-year-old female who was recently admitted to [facility] and rehabilitation after being at [facility] for a month and then for a short period of time at a rehabilitation facility in [place]. This was following a fall with multiple left-sided rib fractures and complications related to this. She was seen initially for that at this facility and sent to [facility] in [place] for admission. The history that I obtained is obtained through the EMS staff and reports from the [facility] and is limited secondary to this. She apparently has Parkinson's disease but is usually able to ambulate and isn't verbally communicative and alert and interactive with staff. It was noted beginning may be last night and certainly today that she was less verbally responsive and weak, not being able to walk and requiring assistance to do most things. She also seemed to be more agitated and picking at things that weren't there with her hands. There were no reports of vomiting. She had little if anything to eat or drink today. She did not appear to have any respiratory difficulties but did have low O2 saturations with an O2 saturation measured at 84% (she is not currently on oxygen chronically). There were some reports of a low-grade fever. The patient had not been complaining of any pain to the [facility] staff and denied any pain to the EMS personnel and also to myself. Her O2 saturations climbed to 96% on 4 L/m via nasal cannula. This is really all the history that I can obtain. There are no other associated signs or symptoms. There are no other modifying factors. Diagnosis: Stroke: No - Discharge Data Discharge Date: 04/05/20 Discharge Disposition: DC/Tfer to [facility] [place] 63 Condition: Good - Referral to Home Health Primary Care Physician: Anoop Oleary MD - Discharge Diagnosis/Problem(s) (1) C. difficile diarrhea SNOMED Code(s): 5006469725172 ICD Code: A04.72 - ENTEROCOLITIS D/T CLOSTRIDIUM DIFFICILE, NOT SPCF RECUR Status: Acute Current Visit: Yes (2) Contact dermatitis SNOMED Code(s): 27527661 ICD Code: L25.9 - UNSPECIFIED CONTACT DERMATITIS, UNSPECIFIED CAUSE Status : Acute Current Visit: Yes (3) Palliative care status SNOMED Code(s): 051792274 ICD Code: Z51.5 - ENCOUNTER FOR PALLIATIVE CARE Status: Acute Current Visit: Yes (4) Bilateral pneumonia SNOMED Code(s): 224340263 ICD Code: J18.9 - PNEUMONIA, UNSPECIFIED ORGANISM Status: Acute Current Visit: Yes Qualifiers: Pneumonia type: due to unspecified organism Lung location: unspecified part of lung Qualified Code(s): J18.9 - Pneumonia, unspecified organism (5) UTI (urinary tract infection) SNOMED Code(s): 16080195 ICD Code: N39.0 - URINARY TRACT INFECTION, SITE NOT SPECIFIED Status: Acute Current Visit: Yes Qualifiers: Urinary tract infection type: site unspecified Hematuria presence: without hematuria Qualified Code(s): N39.0 - Urinary tract infection, site not specified - Patient Instructions Diet: Pureed Diet, Other: ok to use feeding tube if she has inadaquate nutrition for the short term. Notify Provider of: Fever, Increased Pain Other/Special Instructions: 1. [facility] to the [facility]. 2. Make a letter appointment with Dr. Oleary to have her feeding tube pulled. In the short- term as the patient has inadequate nutrition okay to give her some nutrition through the feeding tube. - Discharge Plan Prescriptions/Med Rec: levoFLOXacin [Levaquin] 250 mg PO Q24H #6 tablet Vancomycin [Vancocin 125 MG/5 ML Soln] 125 mg PO QID #24 ml Home Medications: Home Meds Carbidopa/Levodopa [Carbidopa-Levodopa 25-100] 2 tab PO Q6H 05/20/14 [History] Acetaminophen with Codeine [Tylenol with Codeine #3 Tablet] 2 each PO TID [History] Cholecalciferol (Vitamin D3) [Vitamin D3] 50 mcg PO BEDTIME 04/01/20 [History] Gabapentin [Neurontin] 100 mg PO TID 04/01/20 [History] Lidocaine 5% [Lidoderm 5%] 1 patch TOP DAILY 04/01/20 [History] Magnesium Hydroxide [Milk of Magnesia] 30 ml PO DAILY PRN 04/01/20 [History] Melatonin 3 mg PO BEDTIME 04/01/20 [History] Mirtazapine 30 mg PO BEDTIME 04/01/20 [History] Sennosides/Docusate Sodium [Senna-S] 2 tab PO DAILY 04/01/20 [History] Sertraline [Zoloft] 100 mg PO DAILY 04/01/20 [History] Vancomycin [Vancocin 125 MG/5 ML Soln] 125 mg PO QID #24 ml 04/05/20 [Rx] levoFLOXacin [Levaquin] 250 mg PO Q24H #6 tablet 04/05/20 [Rx] Patient Handouts: Clostridioides Difficile Infection, [id number], Levofloxacin tablets, Vancomycin capsules Forms: ED Department Discharge Referrals: Anoop Oleary MD [Primary Care Provider] - - Discharge Summary/Plan Comment DC Time >30 min.: Yes (Saw her, discharge or ahead and see her again due to shortness of breath) - Patient Data Vitals - Most Recent: Last Vital Signs Temp 98.2 F 04/05/20 11:35 Pulse 78 04/05/20 11:35 Resp 18 04/05/20 11:35 BP 129/68 04/05/20 11:35 Pulse Ox 96 04/05/20 11:35 Weight - Most Recent: 140 lb 12.8 oz I&O - Last 24 hours: Intake & Output 04/04/20 04/05/20 04/05/20 22:59 06:59 14:59 Intake Total 100 450 Output Total 0 0 Balance 100 450 Lab Results - Last 24 hrs: Laboratory Results - last 24 hr 04/05/20 04/05/20 04/05/20 Range/Units 09:25 09:25 09:30 D-Dimer, Quantitative 3.20 H (0.0-0.59) mg/LFEU Troponin I 15.7 (4.0-60.3) pg/mL SARS Virus RNA (PCR) Negative (NEGATIVE) DEANA Results - Last 24 hrs: Microbiology 04/01/20 14:50 Aerobic Blood Culture - Preliminary Blood - Venous - Lab Draw NO GROWTH AFTER 3 DAYS Anaerobic Blood Culture - Preliminary NO GROWTH AFTER 3 DAYS 04/01/20 14:55 Aerobic Blood Culture - Preliminary Blood - Venous NO GROWTH AFTER 3 DAYS Anaerobic Blood Culture - Preliminary NO GROWTH AFTER 3 DAYS Med Orders - Current: Current Medications Acetaminophen (Tylenol) 650 mg PO Q4H PRN PRN Reason: Fever Greater Than 101 Last Admin: 04/04/20 17:35 Dose: 650 mg Acetaminophen (Tylenol) 650 mg RECTAL Q6H PRN PRN Reason: Fever Last Admin: 04/01/20 22:09 Dose: 650 mg Acetaminophen/Codeine Phosphate (Tylenol With Codeine No.3 300mg/30mg) 2 tab PO TID NASREEN Last Admin: 04/05/20 09:53 Dose: 2 tab Carbidopa/Levodopa (Sinemet 25-100 Mg) 2 tab PO QIDACANDBED [facility] Last Admin: 04/05/20 11:28 Dose: 2 tab Cetirizine HCl (Zyrtec) 10 mg PO DAILY PRN PRN Reason: Itching Last Admin: 04/03/20 12:09 Dose: 10 mg Cholecalciferol (Vitamin D3) 50 mcg PO BEDTIME [facility] Last Admin: 04/04/20 20:40 Dose: 50 mcg Clotrimazole (Clotrimazole 1%) 0 gm TOP BID [facility] Last Admin: 04/05/20 09:55 Dose: 1 dose Enoxaparin Sodium (Lovenox) 30 mg SUBCUT Q24H [facility] Last Admin: 04/05/20 09:53 Dose: 30 mg Gabapentin (Neurontin) 100 mg PO TID [facility] Last Admin: 04/05/20 09:54 Dose: 100 mg Levofloxacin (Levaquin) 250 mg PO Q24H [facility] Last Admin: 04/04/20 17:35 Dose: 250 mg Lidocaine (Lidoderm 5%) 700 mg TOP DAILY [facility] Last Admin: 04/05/20 09:56 Dose: 700 mg Melatonin (Melatonin) 3 mg PO BEDTIME [facility] Last Admin: 04/04/20 20:39 Dose: 3 mg Mirtazapine (Remeron) 30 mg PO BEDTIME [facility] Last Admin: 04/04/20 20:39 Dose: 30 mg Miscellaneous Information (Remove Patch) 1 ea TRDERM BEDTIME [facility] Last Admin: 04/04/20 20:36 Dose: 1 ea Potassium Chloride (Klor-Con 10) 10 meq PO DAILY [facility] Last Admin: 04/05/20 09:53 Dose: 10 meq Senna/Docusate Sodium (Senna Plus) 2 tab PO DAILY [facility] Sertraline HCl (Zoloft) 100 mg PO DAILY [facility] Last Admin: 04/05/20 09:57 Dose: 100 mg Vancomycin HCl (Vancomycin) 125 mg PO QID [facility] Last Admin: 04/05/20 09:57 Dose: 125 mg Discontinued Medications Carbidopa/Levodopa (Sinemet 25-100 Mg) 2 tab PO Q6H [facility] Last Admin: 04/03/20 05:23 Dose: Not Given Enoxaparin Sodium (Lovenox) 40 mg SUBCUT DAILY [facility] Sodium Chloride (Normal Saline) 500 mls @ 999 mls/hr IV .BOLUS ONE Stop: 04/01/20 14:57 Last Admin: 04/01/20 15:13 Dose: 999 mls/hr Piperacillin Sod/Tazobactam (Sod 3.375 gm/ Sodium Chloride) 50 mls @ 100 mls/ hr IV Q6H [facility] Last Admin: 04/02/20 10:23 Dose: 100 mls/hr Vancomycin HCl (Vancomycin 1 Gm/200 Ml In D5w) 200 mls @ 200 mls/hr IV Q24H [facility] Last Admin: 04/01/20 18:05 Dose: 200 mls/hr Sodium Chloride (Normal Saline) 1,000 mls @ 70 mls/hr IV ASDIRECTED [facility] Last Admin: 04/04/20 07:23 Dose: 100 mls/hr Levofloxacin/Dextrose 500 mg/ (Premix) 100 mls @ 100 mls/hr IV Q24H [facility] Last Admin: 04/02/20 18:16 Dose: 100 mls/hr Levofloxacin/Dextrose 250 mg/ (Premix) 50 mls @ 50 mls/hr IV Q24H [facility] Last Admin: 04/03/20 17:49 Dose: 50 mls/hr Iopamidol (Isovue-370 (76%)) 100 ml IV . DIRECTED ONE Stop: 04/01/20 15:46 Last Admin: 04/01/20 16:10 Dose: 75 ml Vancomycin HCl (Pharmacy To Dose - Vancomycin) 1 dose .XX ASDIRECTED [facility]
--- NOTE | 2020-04-05 13:19 | CR ---
INDICATION: Short of breath, negative for COVID. CHEST, 1 VIEW: Single, AP upright portable view of the chest was obtained 04/05 and compared with 04/01/20 and 02/20/20. Increased density at the left lung base is again noted but not well seen compatible with pneumonia and pleuritis. Pulmonary vasculature also appears to be somewhat prominent raising question of a mild degree of CHF. The heart size is not well evaluated but does appear to be enlarged somewhat. No other change and no acute process was suggested. IMPRESSION: 1. Pleural parenchymal change suggested at the left lung base as previously, or possibly increased compatible with pneumonia and pleuritis, possibly atelectasis. 2. Possible mild CHF. 3. Probable ASHD with mild cardiomegaly. Report was called to Dr. Schmitz at 12:53 hours. [facility]
== END 2020-04-05 13:25 | DRG 371 ==
LOC: FB.ED 14:12 → FB.MS 16:30
PROVIDERS: ADMIT Family Medicine; ATTEND Family Medicine
DX: A04.72 Enterocolitis due to Clostridium difficile, not specified as recurrent (principal); J96.01 Acute respiratory failure with hypoxia; J18.9 Pneumonia, unspecified organism; R33.9 Retention of urine, unspecified; R65.11 Systemic inflammatory response syndrome (SIRS) of non-infectious origin with acute organ dysfunction; N39.0 Urinary tract infection, site not specified; Z51.5 Encounter for palliative care; Z66 Do not resuscitate; L25.9 Unspecified contact dermatitis, unspecified cause; Z93.1 Gastrostomy status; G20 Parkinson's disease; H54.7 Unspecified visual loss; M19.90 Unspecified osteoarthritis, unspecified site; F32.9 Major depressive disorder, single episode, unspecified; Z91.040 Latex allergy status; Z79.899 Other long term (current) drug therapy; Z20.828 Contact with and (suspected) exposure to other viral communicable diseases
CPT/HCPCS: 36415; 51702; 51798; 71045; 71275; 80053; 81001; 82803; 83605; 83735; 84484; 85025; 85379; 85610; 86140; 87040; 87086; 87088; 87186; 87230; 93005; 96360; 99285-25; A9270-GY; J1650; J1956; J2543; J3370; J7030; J7040; J7050; Q9967; U0002

== ENCOUNTER 2020-04-07 08:51 | Emergency (ER) | payer MEDICARE, OTHER ==
--- NOTE | 2020-04-07 09:33 | EDM.PDOC ---
ED HPI GENERAL MEDICAL PROBLEM - General Chief Complaint: Respiratory Problem Stated Complaint: SOB Time Seen by Provider: 04/07/20 09:00 Source of Information: Reports: Patient, Old Records History Limitations: Reports: No Limitations - History of Present Illness INITIAL COMMENTS - FREE TEXT/NARRATIVE: Gavi is a resident of [facility] who was recently discharged from [facility] for bilateral pneumonia, UTI and C.diff colitis on April 05. She developed an erythematous rash on the torso from IV antibx, and this has persisted with oral Vanco for C.diff. Today, nursing staff report observed SOB without cough, wheezes, palpitations, LOC or pallor. A report of unequal pupillary size was also made. There is no report of focal neurologic impairment, but is reporting some neck pain with occipital headache during interview. Headache Pain Score (Numeric/FACES): 8 - Related Data Allergies Allergy/AdvReac Type Severity Reaction Status Date / Time latex Allergy Other Verified 04/01/20 15:12 piperacillin [From Zosyn] Allergy Rash Verified 04/07/20 08:56 tazobactam [From Zosyn] Allergy Rash Verified 04/07/20 08:56 Home Meds: Home Meds Carbidopa/Levodopa [Carbidopa-Levodopa 25-100] 2 tab PO Q6H 05/20/14 [History] Acetaminophen with Codeine [Tylenol with Codeine #3 Tablet] 2 each PO TID [History] Cholecalciferol (Vitamin D3) [Vitamin D3] 50 mcg PO BEDTIME 04/01/20 [History] Gabapentin [Neurontin] 100 mg PO TID 04/01/20 [History] Lidocaine 5% [Lidoderm 5%] 1 patch TOP DAILY 04/01/20 [History] Magnesium Hydroxide [Milk of Magnesia] 30 ml PO DAILY PRN 04/01/20 [History] Melatonin 3 mg PO BEDTIME 04/01/20 [History] Mirtazapine 30 mg PO BEDTIME 04/01/20 [History] Sennosides/Docusate Sodium [Senna-S] 2 tab PO DAILY 04/01/20 [History] Sertraline [Zoloft] 100 mg PO DAILY 04/01/20 [History] Vancomycin [Vancocin 125 MG/5 ML Soln] 125 mg PO QID #24 ml 04/05/20 [Rx] levoFLOXacin [Levaquin] 250 mg PO Q24H #6 tablet 04/05/20 [Rx] Past Medical History HEENT History: Reports: Cataract, Impaired Vision, Macular Degeneration, Other ( See Below) Other HEENT History: Bilateral cataract. Myopia. Astigmatism. Presbyopia. Cardiovascular History: Reports: Other (See Below) Other Cardiovascular History: Phlebitis and thrombophlebitis of deep vessels, lower extremity. Varicose veins of lower extremities. . Respiratory History: Reports: Other (See Below) Other Respiratory History: Multiple fracture of ribs. Pneumonitis due to inhalation of food and vomit. Gastrointestinal History: Reports: Chronic Constipation, Other (See Below) Other Gastrointestinal History: Dysphagia. Moderate protein-calorie malnutrition. Gastrostomy tube. Genitourinary History: Reports: Other (See Below) Other Genitourinary History: Urinary retention. SUPPLEMENTAL NURSE History: Reports: Musculoskeletal History: Reports: Osteoarthritis, Other (See Below) Other Musculoskeletal History: Rhabdomyolysis. Pain left hip. Unequal limb length. Polyosteoarthritis. Low back pain. Chronic pain, unspecified. Neurological History: Reports: Parkinson's Psychiatric History: Reports: Depression, Other (See Below) Other Psychiatric History: Insomnia. Major depressive disorder. - Past Surgical History GI Surgical History: Reports: Other (See Below) Social & Family History - Family History Family Medical History: Noncontributory - Caffeine Use Caffeine Use: Reports: Coffee - Living Situation & Occupation Living situation: Reports: Extended Care Facility (Currently residing at [facility] and rehabilitation) ED ROS GENERAL - Review of Systems Review Of Systems: Comprehensive ROS is negative, except as noted in HPI. ED EXAM, GENERAL - Physical Exam Exam: See Below Exam Limited By: Other (chronic Parkinsonism with latency of response, and some confusion) General Appearance: Alert, WD/WN, No Apparent Distress Eye Exam: Bilateral Eye: EOMI, Normal Inspection, PERRL Ears: Normal External Exam Nose: Normal Inspection Throat/Mouth: Normal Lips, Normal Oropharynx, No Airway Compromise Head: Normocephalic Neck: Normal Inspection, Limited Range of Motion (some pain with flexion, lateral and rotary bending) Respiratory/Chest: Chest Non-Tender, Decreased Breath Sounds, Crackles (R lung field) Cardiovascular: No Gallop, No JVD, No Murmur, No Rub, Other (occ PVC with NSR) GI/Abdominal: Soft, Non-Tender, No Organomegaly, No Mass, Distended (some distention present with PEG) (Female) Exam: Deferred Rectal (Female) Exam: Deferred Back Exam: Normal Inspection Extremities: Non-Tender, Pedal Edema Neurological: Alert, CN II-XII Intact, No Motor/Sensory Deficits, Slow to Respond, Memory Loss Recent Events Psychiatric: Flat Affect Skin Exam: Warm, Dry, Intact, Rash (erythematous eruption of torso) Lymphatic: No Adenopathy Course - Vital Signs Text/Narrative:: Following assessment, patient was observed while follow up testing was performed : the CBC has improved, with WBC 7,300, Hgb 10.2 gm; the UA is unremarkable; ESR 62 mm/hr; CRP 14.0 remains elevated, ddimer 2.34; BNP 1731 markedly elevated ; 12 lead ekg unchanged; chest x ray noted limited perihilar engorgement. Case discussed with hospitalist, and she will have current antibx discontinued and begin Lasix 20 mg qd po, and Metronidazole 500 mg tid for 10 days for C diff. She will [facility] the SNF. Last Recorded V/S: Last Vital Signs Temp 36.4 C 04/07/20 09:00 Pulse 90 04/07/20 09:00 Resp 24 H 04/07/20 09:00 BP 145/83 H 04/07/20 09:00 Pulse Ox 96 04/07/20 09:00 - Orders/Labs/Meds Orders: Active Orders 24 hr Category Date Time Status Bladder Scan [RC] ASDIRECTED Care 04/07/20 09:58 Active EKG Documentation Completion [RC] ASDIRECTED Care 04/07/20 09:39 Active EKG 12 Lead [EK] Routine Ther 04/07/20 09:38 Ordered Labs: Laboratory Tests 04/07/20 04/07/20 04/07/20 Range/Units 09:25 10:05 10:05 WBC 7.3 (4.5-12.0) X10-3/uL RBC 3.70 (3.23-5.20) x10(6)uL Hgb 10.2 L (11.5-15.5) g/dL Hct 31.7 (30.0-51.3) % MCV 85.5 (80-96) fL MCH 27.7 (27.7-33.6) pg MCHC 32.4 (32.2-35.4) g/dL RDW 13.8 (11.5-15.5) % Plt Count 304 (125-369) X10(3)uL MPV 6.7 L (7.4-10.4) fL Neut % (Auto) 72.5 (46-82) % Lymph % (Auto) 14.3 (13-37) % [place] % (Auto) 8.3 (4-12) % Eos % (Auto) 5 (1.0-5.0) % Baso % (Auto) 0 (0-2) % Neut # (Auto) 5.4 (1.6-8.3) # Lymph # (Auto) 1.0 (0.6-5.0) # [place] # (Auto) 0.6 (0.0-1.3) # Eos # (Auto) 0.3 (0.0-0.8) # Baso # (Auto) 0.0 (0.0-0.2) # ESR 62 H (0-20) mm/hr D-Dimer, Quantitative (0.0-0.59) mg/LFEU Sodium 140 (135-145) mmol/L Potassium 3.4 L (3.5-5.3) mmol/L Chloride 103 D (100-110) mmol/L Carbon Dioxide 29 (21-32) mmol/L BUN 12 (7-18) mg/dL Creatinine 0.7 (0.55-1.02) mg/dL Est Cr Clr Drug Dosing TNP Estimated GFR (MDRD) > 60 (>60) BUN/Creatinine Ratio 17.1 (9-20) Glucose 100 (80-116) mg/dL Calcium 8.5 L (8.6-10.2) mg/dL Troponin I (4.0-60.3) pg/mL C-Reactive Protein (0.5-0.9) mg/dL NT-Pro-B Natriuret Pep (<=450) pg/mL Urine Color Yellow (YELLOW) Urine Appearance Clear (CLEAR) Urine pH 5.0 (5.0-6.5) Ur Specific [place] 1.025 (1.010-1.025) Urine Protein Negative (NEGATIVE) mg/dL Urine Glucose (UA) Normal (NORMAL) mg/dL Urine Ketones 15 H (NEGATIVE) mg/dL Urine Occult Blood Negative (NEGATIVE) Urine Nitrite Negative (NEGATIVE) Urine Bilirubin Negative (NEGATIVE) Urine Urobilinogen Normal (NEGATIVE) mg/dL Ur Leukocyte Esterase Negative (NEGATIVE) Urine RBC 0-5 (0-5) Urine WBC 0-5 (0-5) Ur Squamous Epith Cells Occasional (NS,R,O) Amorphous Sediment Moderate Urine Bacteria Few H (NS) 04/07/20 04/07/20 04/07/20 Range/Units 10:05 10:05 10:05 WBC (4.5-12.0) X10-3/uL RBC (3.23-5.20) x10(6)uL Hgb (11.5-15.5) g/dL Hct (30.0-51.3) % MCV (80-96) fL MCH (27.7-33.6) pg MCHC (32.2-35.4) g/dL RDW (11.5-15.5) % Plt Count (125-369) X10(3)uL MPV (7.4-10.4) fL Neut % (Auto) (46-82) % Lymph % (Auto) (13-37) % [place] % (Auto) (4-12) % Eos % (Auto) (1.0-5.0) % Baso % (Auto) (0-2) % Neut # (Auto) (1.6-8.3) # Lymph # (Auto) (0.6-5.0) # [place] # (Auto) (0.0-1.3) # Eos # (Auto) (0.0-0.8) # Baso # (Auto) (0.0-0.2) # ESR (0-20) mm/hr D-Dimer, Quantitative 2.34 H (0.0-0.59) mg/LFEU Sodium (135-145) mmol/L Potassium (3.5-5.3) mmol/L Chloride (100-110) mmol/L Carbon Dioxide (21-32) mmol/L BUN (7-18) mg/dL Creatinine (0.55-1.02) mg/dL Est Cr Clr Drug Dosing Estimated GFR (MDRD) (>60) BUN/Creatinine Ratio (9-20) Glucose (80-116) mg/dL Calcium (8.6-10.2) mg/dL Troponin I 31.0 (4.0-60.3) pg/mL C-Reactive Protein 14.0 H* (0.5-0.9) mg/dL NT-Pro-B Natriuret Pep 1731 H* (<=450) pg/mL Urine Color (YELLOW) Urine Appearance (CLEAR) Urine pH (5.0-6.5) Ur Specific [place] (1.010-1.025) Urine Protein (NEGATIVE) mg/dL Urine Glucose (UA) (NORMAL) mg/dL Urine Ketones (NEGATIVE) mg/dL Urine Occult Blood (NEGATIVE) Urine Nitrite (NEGATIVE) Urine Bilirubin (NEGATIVE) Urine Urobilinogen (NEGATIVE) mg/dL Ur Leukocyte Esterase (NEGATIVE) Urine RBC (0-5) Urine WBC (0-5) Ur Squamous Epith Cells (NS,R,O) Amorphous Sediment Urine Bacteria (NS) Departure - Departure Time of Disposition: 11:17 Disposition: DC/Tfer to [facility] 63 Condition: Poor Clinical Impression: C. difficile diarrhea Congestive heart disease Qualifiers: Heart failure type: unspecified Heart failure chronicity: unspecified Qualified Code(s): I50.9 - Heart failure, unspecified - Discharge Information *PRESCRIPTION DRUG MONITORING PROGRAM REVIEWED*: Not Applicable *COPY OF PRESCRIPTION DRUG MONITORING REPORT IN PATIENT BRANDEN: Not Applicable Forms: ED Department Discharge Sepsis Event Note - Focused Exam Vital Signs: Vital Signs Temp Pulse Resp BP Pulse Ox 04/07/20 09:00 36.4 C 90 24 H 145/83 H 96 Date Exam was Performed: 04/07/20 Time Exam was Performed: 11:13 - Problem List & Annotations (1) C. difficile diarrhea SNOMED Code(s): 4147535468821 Code(s): A04.72 - ENTEROCOLITIS D/T CLOSTRIDIUM DIFFICILE, NOT SPCF RECUR Status: Acute Current Visit: Yes Annotation/Comment:: DC Vancomycin, begin Metronidazole 500 mg tid per PEG for 10 days. (2) Congestive heart disease SNOMED Code(s): 01892282 Code(s): I50.9 - HEART FAILURE, UNSPECIFIED Status: Acute Current Visit: Yes Annotation/Comment:: Begin Lasix 20 mg qd Qualifiers: Heart failure type: unspecified Heart failure chronicity: unspecified Qualified Code(s): I50.9 - Heart failure, unspecified - Problem List Review Problem List Initiated/Reviewed/Updated: Yes - My Orders Last 24 Hours: My Active Orders 04/07/20 09:38 EKG 12 Lead [EK] Routine 04/07/20 09:39 EKG Documentation Completion [RC] ASDIRECTED 04/07/20 09:58 Bladder Scan [RC] ASDIRECTED - Assessment/Plan Last 24 Hours: My Active Orders 04/07/20 09:38 EKG 12 Lead [EK] Routine 04/07/20 09:39 EKG Documentation Completion [RC] ASDIRECTED 04/07/20 09:58 Bladder Scan [RC] ASDIRECTED Plan: Follow up with PCP.
--- NOTE | 2020-04-07 10:50 | CR ---
INDICATION: Pneumonia follow-up. CHEST ONE VIEW: AP upright view of the chest 04/07/2020 was compared with 11/2019 and 04/01/2020 again revealing pleuroparenchymal changes at the left lower lobe and possibly lingula. These changes may be slightly diminished or stable compared with the previous study-different inspiration and penetration is noted. The heart did not appear grossly enlarged, but was prominent. The aorta is tortuous with calcification in the arch and descending portion. The right lung and pleural space appeared unremarkable. IMPRESSION: 1. Continued pleuroparenchymal changes at the left lung base-mostly left lower lobe, but also extending in the left mid lung field. The changes may be slightly diminished or stable. MTDD
[2020-04-07] MEDS ORDERED: Furosemide 20 MG Tab PO ONE (11:40)
== END 2020-04-07 13:05 ==
LOC: FB.ED 08:51
DX: I50.9 Heart failure, unspecified (principal); A04.72 Enterocolitis due to Clostridium difficile, not specified as recurrent; G20 Parkinson's disease; R21 Rash and other nonspecific skin eruption; F32.9 Major depressive disorder, single episode, unspecified; Z91.040 Latex allergy status; Z88.1 Allergy status to other antibiotic agents; Z79.899 Other long term (current) drug therapy
CPT/HCPCS: 36415; 51798; 71045; 80048; 81001; 83880; 84484; 85025; 85379; 85651; 86140; 93005; 99285; A9270

== ENCOUNTER 2020-06-18 13:18 | Inpatient (IN) | payer MEDICARE, OTHER ==
[2020-06-18] MEDS: Sodium Chloride 0.9% 10 ML Syringe FLUSH PRN ×3 (13:40→19:15)
[2020-06-18] MEDS ORDERED: Nystatin Topical Powder 15 GM Bottle TOP PRN (17:42)
[2020-06-18] MEDS ORDERED: Magnesium Hydroxide 400 MG/5 ML Susp 473 ML Bottle GTUBE PRN (17:42)
[2020-06-18] MEDS ORDERED: Acetaminophen Soln 650 MG/20.3 ML UD Cup GTUBE PRN (17:42)
--- NOTE | 2020-06-18 17:46 | PCM.HP.2 ---
H&P History of Present Illness - General Date of Service: 06/18/20 Admit Problem/Dx: Admission Diagnosis/Problem Admission Diagnosis/Problem Pneumonia Source of Information: Patient, Family, Skilled Nursing Records, Old Records - History of Present Illness Initial Comments - Free Text/Narative: Gavi came to the ER after the after a fall 2 days ago. She hit her head but did not lose any consciousness. Today, she was noted to be confused and had a low-grade fever. There is no report of any upper or lower despite her symptoms. She recently had C. difficile colitis. She has dysphagia, and depends on G-tube feedings. She also has parkinsonism, atrial fibrillation that previously stable. - Related Data Allergies/Adverse Reactions: Allergies Allergy/AdvReac Type Severity Reaction Status Date / Time latex Allergy Other Verified 04/01/20 15:12 piperacillin [From Zosyn] Allergy Rash Verified 04/07/20 08:56 tazobactam [From Zosyn] Allergy Rash Verified 04/07/20 08:56 Home Medications: Home Meds Carbidopa/Levodopa [Carbidopa-Levodopa 25-100] 2 tab GTUBE Q6H 05/20/14 [History] Acetaminophen with Codeine [Tylenol with Codeine #3 Tablet] 2 each GTUBE TID 04/01/20 [History] Gabapentin [Neurontin] 100 mg GTUBE TID 04/01/20 [History] Lidocaine 5% [Lidoderm 5%] 1 patch TOP DAILY 04/01/20 [History] Magnesium Hydroxide [Milk of Magnesia] 30 ml GTUBE DAILY PRN 04/01/20 [History] Melatonin 3 mg GTUBE BEDTIME 04/01/20 [History] Sertraline [Zoloft] 200 mg GTUBE BEDTIME 04/01/20 [History] Acetaminophen [Tylenol] 650 mg GTUBE Q4H PRN 06/18/20 [History] Furosemide [Lasix] 40 mg GTUBE DAILY 06/18/20 [History] L Acidophil/B Lactis/B Longum [Florajen3] 460 mg GTUBE DAILY 06/18/20 [History] Mirtazapine 45 mg GTUBE BEDTIME 06/18/20 [History] Nystatin 1 applic TOP BID PRN 06/18/20 [History] Past Medical History HEENT History: Reports: Cataract, Impaired Vision, Macular Degeneration, Other (See Below) Other HEENT History: Bilateral cataract. Myopia. Astigmatism. Presbyopia. Cardiovascular History: Reports: Heart Failure, Other (See Below) Other Cardiovascular History: Phlebitis and thrombophlebitis of deep vessels, lower extremity. Varicose veins of lower extremities, cardiomegaly. . Respiratory History: Reports: Pneumonia, Recurrent, Other (See Below) Other Respiratory History: Multiple fracture of ribs. Pneumonitis due to inhalation of food and vomit. Gastrointestinal History: Reports: Chronic Constipation, Other (See Below) Other Gastrointestinal History: Dysphagia. Moderate protein-calorie malnutrition. Gastrostomy tube. C-diff Genitourinary History: Reports: UTI, Recurrent, Other (See Below) Other Genitourinary History: Urinary retention. LICENSED APPRAISER History: Reports: Musculoskeletal History: Reports: Back Pain, Chronic, Osteoarthritis, Osteoporosis, Other (See Below) Other Musculoskeletal History: Rhabdomyolysis. Pain left hip. Unequal limb length. Polyosteoarthritis. Low back pain. Chronic pain, unspecified. Neurological History: Reports: Parkinson's Psychiatric History: Reports: Depression, Other (See Below) Other Psychiatric History: Insomnia. Major depressive disorder. - Infectious Disease History Infectious Disease History: Reports: C-Difficile - Past Surgical History GI Surgical History: Reports: Other (See Below) Other GI Surgeries/Procedures: Gastrostomy Social & Family History - Family History Family Medical History: Noncontributory - Tobacco Use Smoking Status *Q: Never Smoker - Caffeine Use Caffeine Use: Reports: Coffee - Recreational Drug Use Recreational Drug Use: No - Living Situation & Occupation Living situation: Reports: Extended Care Facility (Currently residing at [facility]) H&P Review of Systems - Review of Systems: Review Of Systems: Comprehensive ROS is negative, except as noted in HPI. Exam - Exam Exam: See Below - Vital Signs Vital Signs: Last Vital Signs Temp 98.0 F 06/18/20 14:21 Pulse 107 H 06/18/20 14:21 Resp 22 H 06/18/20 14:21 BP 102/62 06/18/20 14:21 Pulse Ox 92 L 06/18/20 17:40 Weight: 59.285 kg - Exam Quality Assessment: Supplemental Oxygen General: Alert, Lethargic HEENT: PERRLA Neck: Supple Lungs: Clear to Auscultation Cardiovascular: Regular Rate, Irregular Rhythm GI/Abdominal Exam: Normal Bowel Sounds, Guarding, Tender Rectal (Female) Exam: Deferred Back Exam: Normal Inspection Extremities: Normal Inspection Skin: Warm, Dry Neurological: Cranial Nerves Intact Neuro Extensive - Mental Status: Alert Psychiatric: Alert, Anxious - Patient Data Lab Results Last 24 hrs: Laboratory Results - last 24 hr 06/18/20 06/18/20 06/18/20 Range/Units 14:19 15:10 15:10 WBC 8.9 (4.5-12.0) X10-3/uL RBC 3.99 (3.23-5.20) x10(6)uL Hgb 10.5 L (11.5-15.5) g/dL Hct 32.2 (30.0-51.3) % MCV 80.8 (80-96) fL MCH 26.2 L (27.7-33.6) pg MCHC 32.5 (32.2-35.4) g/dL RDW 14.8 (11.5-15.5) % Plt Count 330 (125-369) X10(3)uL MPV 7.8 (7.4-10.4) fL Neut % (Auto) 75.0 (46-82) % Lymph % (Auto) 6.5 L (13-37) % [place] % (Auto) 17.4 H (4-12) % Eos % (Auto) 1 (1.0-5.0) % Baso % (Auto) 1 (0-2) % Neut # (Auto) 6.6 (1.6-8.3) # Lymph # (Auto) 0.6 (0.6-5.0) # [place] # (Auto) 1.6 H (0.0-1.3) # Eos # (Auto) 0.1 (0.0-0.8) # Baso # (Auto) 0.0 (0.0-0.2) # Sodium 136 (135-145) mmol/L Potassium 3.0 L (3.5-5.3) mmol/L Chloride 96 L D (100-110) mmol/L Carbon Dioxide 33 H (21-32) mmol/L BUN 17 (7-18) mg/dL Creatinine 0.9 (0.55-1.02) mg/dL Est Cr Clr Drug Dosing 43.77 mL/min Estimated GFR (MDRD) > 60 (>60) BUN/Creatinine Ratio 18.9 (9-20) Glucose 107 (80-116) mg/dL Lactic Acid (0.4-2.0) mmol/L Calcium 8.4 L (8.6-10.2) mg/dL Total Bilirubin 0.6 (0.1-1.3) mg/dL AST 23 D (5-25) IU/L ALT < 6 L (12-36) U/L Alkaline Phosphatase 125 H (56-112) IU/L Creatine Kinase 112 (60-160) IU/L Troponin I (4.0-60.3) pg/mL Total Protein 7.1 (6.0-8.0) g/dL Albumin 2.6 L (3.2-4.6) g/dL Globulin 4.5 g/dL Albumin/Globulin Ratio 0.6 Urine Color Yellow (YELLOW) Urine Appearance Slightly cloudy (CLEAR) Urine pH 6.5 (5.0-6.5) Ur Specific [place] 1.015 (1.010-1.025) Urine Protein 30 H (NEGATIVE) mg/dL Urine Glucose (UA) Normal (NORMAL) mg/dL Urine Ketones 15 H (NEGATIVE) mg/dL Urine Occult Blood Moderate H (NEGATIVE) Urine Nitrite Positive H (NEGATIVE) Urine Bilirubin Negative (NEGATIVE) Urine Urobilinogen Normal (NEGATIVE) mg/dL Ur Leukocyte Esterase Small H (NEGATIVE) Urine RBC 5-10 H (0-5) Urine WBC 5-10 H (0-5) Ur Squamous Epith Cells Occasional (NS,R,O) Urine Bacteria Many H (NS) SARS Virus RNA (PCR) (NEGATIVE) 06/18/20 06/18/20 06/18/20 Range/Units 15:10 15:10 15:20 WBC (4.5-12.0) X10-3/uL RBC (3.23-5.20) x10(6)uL Hgb (11.5-15.5) g/dL Hct (30.0-51.3) % MCV (80-96) fL MCH (27.7-33.6) pg MCHC (32.2-35.4) g/dL RDW (11.5-15.5) % Plt Count (125-369) X10(3)uL MPV (7.4-10.4) fL Neut % (Auto) (46-82) % Lymph % (Auto) (13-37) % [place] % (Auto) (4-12) % Eos % (Auto) (1.0-5.0) % Baso % (Auto) (0-2) % Neut # (Auto) (1.6-8.3) # Lymph # (Auto) (0.6-5.0) # [place] # (Auto) (0.0-1.3) # Eos # (Auto) (0.0-0.8) # Baso # (Auto) (0.0-0.2) # Sodium (135-145) mmol/L Potassium (3.5-5.3) mmol/L Chloride (100-110) mmol/L Carbon Dioxide (21-32) mmol/L BUN (7-18) mg/dL Creatinine (0.55-1.02) mg/dL Est Cr Clr Drug Dosing mL/min Estimated GFR (MDRD) (>60) BUN/Creatinine Ratio (9-20) Glucose (80-116) mg/dL Lactic Acid 0.9 (0.4-2.0) mmol/L Calcium (8.6-10.2) mg/dL Total Bilirubin (0.1-1.3) mg/dL AST (5-25) IU/L ALT (12-36) U/L Alkaline Phosphatase (56-112) IU/L Creatine Kinase (60-160) IU/L Troponin I 14.5 (4.0-60.3) pg/mL Total Protein (6.0-8.0) g/dL Albumin (3.2-4.6) g/dL Globulin g/dL Albumin/Globulin Ratio Urine Color (YELLOW) Urine Appearance (CLEAR) Urine pH (5.0-6.5) Ur Specific [place] (1.010-1.025) Urine Protein (NEGATIVE) mg/dL Urine Glucose (UA) (NORMAL) mg/dL Urine Ketones (NEGATIVE) mg/dL Urine Occult Blood (NEGATIVE) Urine Nitrite (NEGATIVE) Urine Bilirubin (NEGATIVE) Urine Urobilinogen (NEGATIVE) mg/dL Ur Leukocyte Esterase (NEGATIVE) Urine RBC (0-5) Urine WBC (0-5) Ur Squamous Epith Cells (NS,R,O) Urine Bacteria (NS) SARS Virus RNA (PCR) Negative (NEGATIVE) Result Diagrams: 06/19/20 07:00 06/19/20 07:00 Sepsis Event Note - Evaluation Sepsis Screening Result: No Definite Risk - Focused Exam Vital Signs: Vital Signs Temp Pulse Resp BP Pulse Ox Pulse Ox 06/18/20 17:40 92 L 06/18/20 14:21 98.0 F 107 H 22 H 102/62 96 - Problem List (1) Pneumonia SNOMED Code(s): 007056222 ICD Code: J18.9 - PNEUMONIA, UNSPECIFIED ORGANISM Status: Acute Current Visit: Yes Qualifiers: Pneumonia type: due to unspecified organism (2) Falls frequently SNOMED Code(s): 628237080 ICD Code: R29.6 - REPEATED FALLS Status: Acute Current Visit: Yes (3) Head injury SNOMED Code(s): 47308795 ICD Code: S09.90XA - UNSPECIFIED INJURY OF HEAD, INITIAL ENCOUNTER Status: Acute Current Visit: Yes Qualifiers: Encounter type: initial encounter Qualified Code(s): S09.90XA - Unspecified injury of head, initial encounter (4) MDD (major depressive disorder) SNOMED Code(s): 791217763 ICD Code: F32.9 - MAJOR DEPRESSIVE DISORDER, SINGLE EPISODE, UNSPECIFIED Status: Acute Current Visit: Yes (5) Parkinson disease SNOMED Code(s): 21615552 ICD Code: G20 - PARKINSON'S DISEASE Status: Acute Current Visit: Yes (6) Insomnia SNOMED Code(s): 981236983 ICD Code: G47.00 - INSOMNIA, UNSPECIFIED Status: Acute Current Visit: Yes (7) Protein-energy malnutrition SNOMED Code(s): 077415323 ICD Code: E46 - UNSPECIFIED PROTEIN-CALORIE MALNUTRITION Status: Acute Current Visit: Yes Qualifiers: Protein-calorie malnutrition severity: mild Qualified Code(s): E44.1 - Mild protein-calorie malnutrition (8) Asymptomatic bacteriuria SNOMED Code(s): 995229187 ICD Code: R82.71 - BACTERIURIA Status: Acute Current Visit: Yes Problem List Initiated/Reviewed/Updated: Yes Orders Last 24hrs: Active Orders 24 hr Category Date Time Status Patient Status [ADT] Routine ADT 06/18/20 17:08 Active Height and Weight [RC] DAILY Care 06/18/20 17:08 Active Oxygen Therapy [RC] PRN Care 06/18/20 17:08 Active Up With Assistance [RC] ASDIRECTED Care 06/18/20 17:08 Active VTE/DVT Education [RC] Per Unit Routine Care 06/18/20 17:08 Active Vital Signs [RC] Q4H Care 06/18/20 17:08 Active NPO [Nothing Per Oral Diet] [DIET] Diet 06/18/20 Dinner Active Chest 1V Frontal [CR] Stat Exams 06/18/20 13:51 Taken Head wo Cont [CT] Stat Exams 06/18/20 13:51 Ordered Hip Min 2V w Pelvis Bi [CR] Stat Exams 06/18/20 13:51 Taken Humerus Bi [CR] Stat Exams 06/18/20 13:57 Taken Tibia Fibula Bi [CR] Stat Exams 06/18/20 13:57 Taken BASIC METABOLIC PANEL,BMP [CHEM] AM Lab 06/19/20 05:11 Ordered CBC WITH AUTO DIFF [HEME] AM Lab 06/19/20 05:11 Ordered CULTURE BLOOD [BC] Urgent Lab 06/18/20 15:10 Received CULTURE BLOOD [BC] Urgent Lab 06/18/20 15:20 Received CULTURE URINE [RM] Stat Lab 06/18/20 16:31 Ordered Acetaminophen [Tylenol] Med 06/18/20 17:42 Ordered 650 mg GTUBE Q4H PRN Acetaminophen/Codeine [Tylenol with Codeine No.3 300MG/ Med 06/18/20 21:00 Ordered 30MG] DOSE tab GTUBE TID Carbidopa/Levodopa [Sinemet 25-100 mg] Med 06/18/20 17:45 Ordered 2 tab GTUBE Q6H Furosemide [Lasix] Med 06/19/20 09:00 Ordered 40 mg GTUBE DAILY Gabapentin [Neurontin] Med 06/18/20 21:00 Ordered 100 mg GTUBE TID L Acidophil/B Lactis/B Longum [Florajen3] Med 06/19/20 09:00 Ordered 460 mg GTUBE DAILY Levofloxacin/Dextrose 5%-Water [Levaquin in D5W 500 MG/ Med 06/18/20 17:15 Active 100 ML] 500 mg Premix Bag 1 bag IV Q24H Lidocaine 5% [Lidoderm 5%] Med 06/19/20 09:00 Ordered DOSE mg TOP DAILY Magnesium Hydroxide [Milk of Magnesia] Med 06/18/20 17:42 Ordered 2,400 mg GTUBE DAILY PRN Melatonin Med 06/18/20 21:00 Ordered 3 mg GTUBE BEDTIME Mirtazapine [Mirtazapine] Med 06/18/20 21:00 Ordered 45 mg GTUBE BEDTIME Nystatin [Nystop] Med 06/18/20 17:42 Ordered DOSE gm TOP BID PRN Sertraline [Zoloft] Med 06/18/20 21:00 Ordered 200 mg GTUBE BEDTIME Sodium Chloride 0.9% [Saline Flush] Med 06/18/20 13:51 Active 10 ml FLUSH ASDIRECTED PRN Blood Culture x2 Reflex Set [OM.PC] Urgent Oth 06/18/20 13:51 Ordered Saline Lock Insert [OM.PC] Routine Oth 06/18/20 13:51 Ordered Code Status [Resuscitation Status] Routine Resus Stat 06/18/20 17:42 Ordered EKG 12 Lead [EK] Routine Ther 06/18/20 13:51 Ordered Medication Orders Acetaminophen (Tylenol) 650 mg GTUBE Q4H PRN PRN Reason: Pain/Fever Acetaminophen/Codeine Phosphate (Tylenol With Codeine No.3 300mg/30mg) tab GTUBE TID [place]RE[place] Carbidopa/Levodopa (Sinemet 25-100 Mg) 2 tab GTUBE Q6H [place] Furosemide (Lasix) 40 mg GTUBE DAILY [place] Gabapentin (Neurontin) 100 mg GTUBE TID [place] Levofloxacin/Dextrose 500 mg/ (Premix) 100 mls @ 100 mls/hr IV Q24H [place] Lidocaine (Lidoderm 5%) mg TOP DAILY [place] Magnesium Hydroxide (Milk Of Magnesia) 2,400 mg GTUBE DAILY PRN PRN Reason: Constipation Melatonin (Melatonin) 3 mg GTUBE BEDTIME [place]RE[place] Non-Formulary Medication (L Acidophil/B Lactis/B Longum [Florajen3]) 460 mg GTUBE DAILY [place]RE[place] Non-Formulary Medication (Mirtazapine [Mirtazapine]) 45 mg GTUBE BEDTIME NASRE[place] Nystatin (Nystop) gm TOP BID PRN PRN Reason: SKIN IRRITATION Sertraline HCl (Zoloft) 200 mg GTUBE BEDTIME [place]RE[place] Sodium Chloride (Saline Flush) 10 ml FLUSH ASDIRECTED PRN PRN Reason: Keep Vein Open Last Admin: 06/18/20 13:40 Dose: 10 ml Documented by: LISHA Assessment/Plan Comment:: A chest x-ray was suspicious for pneumonia. She also has asymptomatic bacteriur ia. She appears weak and needs for body lift. I'll admit her for IV antibiotics, and a elected level. We'll continue with the regular home feedings in the tube. Repeat labs the morning.
--- NOTE | 2020-06-18 18:01 | EDM.PDOC ---
ED HPI GENERAL MEDICAL PROBLEM - General Chief Complaint: General Stated Complaint: CONFUSION Time Seen by Provider: 06/18/20 14:25 Source of Information: Reports: Patient, Family, Senior Living Records, Old Records History Limitations: Reports: Altered Mental Status - History of Present Illness INITIAL COMMENTS - FREE TEXT/NARRATIVE: Patient presented to the ED because of altered mental status. Per [place] staff at [facility] she fell 2 days ago from her recliner. She hit her left scientologist on the trash can. There was no LOC after the fall and apparently she was neurologically stable. Last night she started to get confused and a c/o BLLE pain. She also has a low grade fever, no cough or cold, no chills. There is no N/V/D. - Related Data Allergies Allergy/AdvReac Type Severity Reaction Status Date / Time latex Allergy Other Verified 04/01/20 15:12 piperacillin [From Zosyn] Allergy Rash Verified 04/07/20 08:56 tazobactam [From Zosyn] Allergy Rash Verified 04/07/20 08:56 Home Meds: Home Meds Carbidopa/Levodopa [Carbidopa-Levodopa 25-100] 2 tab GTUBE Q6H 05/20/14 [History] Acetaminophen with Codeine [Tylenol with Codeine #3 Tablet] 2 each GTUBE TID 04/01/20 [History] Gabapentin [Neurontin] 100 mg GTUBE TID 04/01/20 [History] Lidocaine 5% [Lidoderm 5%] 1 patch TOP DAILY 04/01/20 [History] Magnesium Hydroxide [Milk of Magnesia] 30 ml GTUBE DAILY PRN 04/01/20 [History] Melatonin 3 mg GTUBE BEDTIME 04/01/20 [History] Sertraline [Zoloft] 200 mg GTUBE BEDTIME 04/01/20 [History] Acetaminophen [Tylenol] 650 mg GTUBE Q4H PRN 06/18/20 [History] Furosemide [Lasix] 40 mg GTUBE DAILY 06/18/20 [History] L Acidophil/B Lactis/B Longum [Florajen3] 460 mg GTUBE DAILY 06/18/20 [History] Mirtazapine 45 mg GTUBE BEDTIME 06/18/20 [History] Nystatin 1 applic TOP BID PRN 06/18/20 [History] Past Medical History HEENT History: Reports: Cataract, Impaired Vision, Macular Degeneration, Other (See Below) Other HEENT History: Bilateral cataract. Myopia. Astigmatism. Presbyopia. Cardiovascular History: Reports: Heart Failure, Other (See Below) Other Cardiovascular History: Phlebitis and thrombophlebitis of deep vessels, lower extremity. Varicose veins of lower extremities, cardiomegaly. . Respiratory History: Reports: Pneumonia, Recurrent, Other (See Below) Other Respiratory History: Multiple fracture of ribs. Pneumonitis due to inhalation of food and vomit. Gastrointestinal History: Reports: Chronic Constipation, Other (See Below) Other Gastrointestinal History: Dysphagia. Moderate protein-calorie malnutrition. Gastrostomy tube. C-diff Genitourinary History: Reports: UTI, Recurrent, Other (See Below) Other Genitourinary History: Urinary retention. 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 Pain left hip. Unequal limb length. Polyosteoarthritis. Low back pain. Chronic pain, unspecified. Neurological History: Reports: Parkinson's Psychiatric History: Reports: Depression, Other (See Below) Other Psychiatric History: Insomnia. Major depressive disorder. - Infectious Disease History Infectious Disease History: Reports: C-Difficile - Past Surgical History GI Surgical History: Reports: Other (See Below) Other GI Surgeries/Procedures: Gastrostomy Social & Family History - Family History Family Medical History: Noncontributory - Tobacco Use Smoking Status *Q: Never Smoker - Caffeine Use Caffeine Use: Reports: Coffee - Recreational Drug Use Recreational Drug Use: No - Living Situation & Occupation Living situation: Reports: Extended Care Facility (Currently residing at [facility]) ED ROS GENERAL - Review of Systems Review Of Systems: See Below Constitutional: Reports: Fever. Denies: Chills HEENT: Reports: No Symptoms Respiratory: Reports: No Symptoms Cardiovascular: Reports: No Symptoms Endocrine: Reports: No Symptoms GI/Abdominal: Reports: No Symptoms : Reports: No Symptoms Musculoskeletal: Reports: No Symptoms Skin: Reports: No Symptoms Neurological: Reports: Confusion Psychiatric: Reports: No Symptoms ED EXAM, GENERAL - Physical Exam Exam: See Below Exam Limited By: No Limitations General Appearance: Alert Ears: Normal External Exam Ear Exam: Bilateral Ear: Tenderness Nose: Normal Inspection, Normal Mucosa Throat/Mouth: Normal Inspection, Normal Lips Head: Atraumatic, Normocephalic Neck: Normal Inspection, Supple, Non-Tender, Full Range of Motion Respiratory/Chest: No Respiratory Distress, Normal Breath Sounds Cardiovascular: Normal Peripheral Pulses, Regular Rate, Rhythm, No Edema, No Gallop GI/Abdominal: Normal Bowel Sounds, Soft, Non-Tender, No Organomegaly Back Exam: Normal Inspection, Full Range of Motion Extremities: Normal Inspection, Normal Range of Motion Neurological: Confused, Disoriented, Slow to Respond Psychiatric: Normal Affect Skin Exam: Warm Course - Vital Signs Text/Narrative:: Labs/Xrays,Head CT result was discussed with his son Petey and verbalized full understanding Levaquin 500 mg IV Case discussed with Dr Hardin Last Recorded V/S: Last Vital Signs Temp 36.7 C 06/18/20 14:21 Pulse 107 H 06/18/20 14:21 Resp 22 H 06/18/20 14:21 BP 102/62 06/18/20 14:21 Pulse Ox 92 L 06/18/20 17:40 - Orders/Labs/Meds Orders: Active Orders 24 hr Category Date Time Status Chest 1V Frontal [CR] Stat Exams 06/18/20 13:51 Taken Head wo Cont [CT] Stat Exams 06/18/20 13:51 Ordered Hip Min 2V w Pelvis Bi [CR] Stat Exams 06/18/20 13:51 Taken Humerus Bi [CR] Stat Exams 06/18/20 13:57 Taken Tibia Fibula Bi [CR] Stat Exams 06/18/20 13:57 Taken CULTURE BLOOD [BC] Urgent Lab 06/18/20 15:10 Received CULTURE BLOOD [BC] Urgent Lab 06/18/20 15:20 Received CULTURE URINE [RM] Stat Lab 06/18/20 13:47 Received Sodium Chloride 0.9% [Saline Flush] Med 06/18/20 13:51 Active 10 ml FLUSH ASDIRECTED PRN Blood Culture x2 Reflex Set [OM.PC] Urgent Oth 06/18/20 13:51 Ordered Saline Lock Insert [OM.PC] Routine Oth 06/18/20 13:51 Ordered EKG 12 Lead [EK] Routine Ther 06/18/20 13:51 Ordered Medication Orders Acetaminophen (Tylenol) 650 mg GTUBE Q4H PRN PRN Reason: Pain/Fever Acetaminophen/Codeine Phosphate (Tylenol With Codeine No.3 300mg/30mg) tab GTUBE TID NASREEN Carbidopa/Levodopa (Sinemet 25-100 Mg) 2 tab GTUBE Q6H NASREEN Furosemide (Lasix) 40 mg GTUBE DAILY NASREEN Gabapentin (Neurontin) 100 mg GTUBE TID NASREEN Levofloxacin/Dextrose 500 mg/ (Premix) 100 mls @ 100 mls/hr IV Q24H NASREEN Lidocaine (Lidoderm 5%) mg TOP DAILY NASREEN Magnesium Hydroxide (Milk Of Magnesia) 2,400 mg GTUBE DAILY PRN PRN Reason: Constipation Melatonin (Melatonin) 3 mg GTUBE BEDTIME NASREEN Non-Formulary Medication (L Acidophil/B Lactis/B Longum [Florajen3]) 460 mg GTUBE DAILY NASREEN Non-Formulary Medication (Mirtazapine [Mirtazapine]) 45 mg GTUBE BEDTIME NASREEN Nystatin (Nystop) gm TOP BID PRN PRN Reason: SKIN IRRITATION Sertraline HCl (Zoloft) 200 mg GTUBE BEDTIME NASREEN Sodium Chloride (Saline Flush) 10 ml FLUSH ASDIRECTED PRN PRN Reason: Keep Vein Open Last Admin: 06/18/20 13:40 Dose: 10 ml Documented by: [id number] Labs: Laboratory Tests 06/18/20 06/18/20 06/18/20 Range/Units 14:19 15:10 15:10 WBC 8.9 (4.5-12.0) X10-3/uL RBC 3.99 (3.23-5.20) x10(6)uL Hgb 10.5 L (11.5-15.5) g/dL Hct 32.2 (30.0-51.3) % MCV 80.8 (80-96) fL MCH 26.2 L (27.7-33.6) pg MCHC 32.5 (32.2-35.4) g/dL RDW 14.8 (11.5-15.5) % Plt Count 330 (125-369) X10(3)uL MPV 7.8 (7.4-10.4) fL Neut % (Auto) 75.0 (46-82) % Lymph % (Auto) 6.5 L (13-37) % [place] % (Auto) 17.4 H (4-12) % Eos % (Auto) 1 (1.0-5.0) % Baso % (Auto) 1 (0-2) % Neut # (Auto) 6.6 (1.6-8.3) # Lymph # (Auto) 0.6 (0.6-5.0) # [place] # (Auto) 1.6 H (0.0-1.3) # Eos # (Auto) 0.1 (0.0-0.8) # Baso # (Auto) 0.0 (0.0-0.2) # Sodium 136 (135-145) mmol/L Potassium 3.0 L (3.5-5.3) mmol/L Chloride 96 L D (100-110) mmol/L Carbon Dioxide 33 H (21-32) mmol/L BUN 17 (7-18) mg/dL Creatinine 0.9 (0.55-1.02) mg/dL Est Cr Clr Drug Dosing 43.77 mL/min Estimated GFR (MDRD) > 60 (>60) BUN/Creatinine Ratio 18.9 (9-20) Glucose 107 (80-116) mg/dL Lactic Acid (0.4-2.0) mmol/L Calcium 8.4 L (8.6-10.2) mg/dL Total Bilirubin 0.6 (0.1-1.3) mg/dL AST 23 D (5-25) IU/L ALT < 6 L (12-36) U/L Alkaline Phosphatase 125 H (56-112) IU/L Creatine Kinase 112 (60-160) IU/L Troponin I (4.0-60.3) pg/mL Total Protein 7.1 (6.0-8.0) g/dL Albumin 2.6 L (3.2-4.6) g/dL Globulin 4.5 g/dL Albumin/Globulin Ratio 0.6 Urine Color Yellow (YELLOW) Urine Appearance Slightly cloudy (CLEAR) Urine pH 6.5 (5.0-6.5) Ur Specific [place] 1.015 (1.010-1.025) Urine Protein 30 H (NEGATIVE) mg/dL Urine Glucose (UA) Normal (NORMAL) mg/dL Urine Ketones 15 H (NEGATIVE) mg/dL Urine Occult Blood Moderate H (NEGATIVE) Urine Nitrite Positive H (NEGATIVE) Urine Bilirubin Negative (NEGATIVE) Urine Urobilinogen Normal (NEGATIVE) mg/dL Ur Leukocyte Esterase Small H (NEGATIVE) Urine RBC 5-10 H (0-5) Urine WBC 5-10 H (0-5) Ur Squamous Epith Cells Occasional (NS,R,O) Urine Bacteria Many H (NS) SARS Virus RNA (PCR) (NEGATIVE) 06/18/20 06/18/20 06/18/20 Range/Units 15:10 15:10 15:20 WBC (4.5-12.0) X10-3/uL RBC (3.23-5.20) x10(6)uL Hgb (11.5-15.5) g/dL Hct (30.0-51.3) % MCV (80-96) fL MCH (27.7-33.6) pg MCHC (32.2-35.4) g/dL RDW (11.5-15.5) % Plt Count (125-369) X10(3)uL MPV (7.4-10.4) fL Neut % (Auto) (46-82) % Lymph % (Auto) (13-37) % [place] % (Auto) (4-12) % Eos % (Auto) (1.0-5.0) % Baso % (Auto) (0-2) % Neut # (Auto) (1.6-8.3) # Lymph # (Auto) (0.6-5.0) # [place] # (Auto) (0.0-1.3) # Eos # (Auto) (0.0-0.8) # Baso # (Auto) (0.0-0.2) # Sodium (135-145) mmol/L Potassium (3.5-5.3) mmol/L Chloride (100-110) mmol/L Carbon Dioxide (21-32) mmol/L BUN (7-18) mg/dL Creatinine (0.55-1.02) mg/dL Est Cr Clr Drug Dosing mL/min Estimated GFR (MDRD) (>60) BUN/Creatinine Ratio (9-20) Glucose (80-116) mg/dL Lactic Acid 0.9 (0.4-2.0) mmol/L Calcium (8.6-10.2) mg/dL Total Bilirubin (0.1-1.3) mg/dL AST (5-25) IU/L ALT (12-36) U/L Alkaline Phosphatase (56-112) IU/L Creatine Kinase (60-160) IU/L Troponin I 14.5 (4.0-60.3) pg/mL Total Protein (6.0-8.0) g/dL Albumin (3.2-4.6) g/dL Globulin g/dL Albumin/Globulin Ratio Urine Color (YELLOW) Urine Appearance (CLEAR) Urine pH (5.0-6.5) Ur Specific [place] (1.010-1.025) Urine Protein (NEGATIVE) mg/dL Urine Glucose (UA) (NORMAL) mg/dL Urine Ketones (NEGATIVE) mg/dL Urine Occult Blood (NEGATIVE) Urine Nitrite (NEGATIVE) Urine Bilirubin (NEGATIVE) Urine Urobilinogen (NEGATIVE) mg/dL Ur Leukocyte Esterase (NEGATIVE) Urine RBC (0-5) Urine WBC (0-5) Ur Squamous Epith Cells (NS,R,O) Urine Bacteria (NS) SARS Virus RNA (PCR) Negative (NEGATIVE) Meds: Medications Generic Name Dose Route Start Last Admin Trade Name Freq PRN Reason Stop Dose Admin Acetaminophen 650 mg 06/18/20 17:42 Tylenol GTUBE Q4H PRN Pain/Fever Acetaminophen/Codeine Phosphate tab 06/18/20 21:00 Tylenol With Codeine No.3 300mg/30mg GTUBE TID NASREEN Carbidopa/Levodopa 2 tab 06/18/20 17:45 Sinemet 25-100 Mg GTUBE Q6H NASREEN Furosemide 40 mg 06/19/20 09:00 Lasix GTUBE DAILY NASREEN Gabapentin 100 mg 06/18/20 21:00 Neurontin GTUBE TID NASREEN Levofloxacin/Dextrose 500 mg/ 100 mls @ 100 mls/hr 06/18/20 17:15 Premix IV Q24H NASREEN Lidocaine mg 06/19/20 09:00 Lidoderm 5% TOP DAILY NASREEN Magnesium Hydroxide 2,400 mg 06/18/20 17:42 Milk Of Magnesia GTUBE DAILY PRN Constipation Melatonin 3 mg 06/18/20 21:00 Melatonin GTUBE BEDTIME NASREEN Non-Formulary Medication 460 mg 06/19/20 09:00 L Acidophil/B Lactis/B Longum [Florajen3] GTUBE DAILY NASREEN Non-Formulary Medication 45 mg 06/18/20 21:00 Mirtazapine [Mirtazapine] GTUBE BEDTIME NASREEN Nystatin gm 06/18/20 17:42 Nystop TOP BID PRN SKIN IRRITATION Sertraline HCl 200 mg 06/18/20 21:00 Zoloft GTUBE BEDTIME NASREEN Sodium Chloride 10 ml 06/18/20 13:51 06/18/20 13:40 Saline Flush FLUSH 10 ml ASDIRECTED PRN Administration Keep Vein Open Departure - Departure Time of Disposition: 16:00 Disposition: Admitted As Inpatient 66 Condition: Good Clinical Impression: Altered level of consciousness, Hypokalemia UTI (urinary tract infection) Qualifiers: Urinary tract infection type: site unspecified Hematuria presence: without hematuria Qualified Code(s): N39.0 - Urinary tract infection, site not specified Pneumonia Qualifiers: Pneumonia type: due to unspecified organism - Discharge Information Sepsis Event Note (ED) - Evaluation Sepsis Screening Result: No Definite Risk - Focused Exam Vital Signs: Vital Signs Temp Pulse Resp BP Pulse Ox 06/18/20 14:21 36.7 C 107 H 22 H 102/62 96 - My Orders Last 24 Hours: My Active Orders 06/18/20 13:47 CULTURE URINE [RM] Stat 06/18/20 13:51 Chest 1V Frontal [CR] Stat Head wo Cont [CT] Stat Hip Min 2V w Pelvis Bi [CR] Stat Sodium Chloride 0.9% [Saline Flush] 10 ml FLUSH ASDIRECTED PRN Blood Culture x2 Reflex Set [OM.PC] Urgent Saline Lock Insert [OM.PC] Routine EKG 12 Lead [EK] Routine 06/18/20 13:57 Humerus Bi [CR] Stat Tibia Fibula Bi [CR] Stat 06/18/20 15:10 CULTURE BLOOD [BC] Urgent 06/18/20 15:20 CULTURE BLOOD [BC] Urgent - Assessment/Plan Last 24 Hours: My Active Orders 06/18/20 13:47 CULTURE URINE [RM] Stat 06/18/20 13:51 Chest 1V Frontal [CR] Stat Head wo Cont [CT] Stat Hip Min 2V w Pelvis Bi [CR] Stat Sodium Chloride 0.9% [Saline Flush] 10 ml FLUSH ASDIRECTED PRN Blood Culture x2 Reflex Set [OM.PC] Urgent Saline Lock Insert [OM.PC] Routine EKG 12 Lead [EK] Routine 06/18/20 13:57 Humerus Bi [CR] Stat Tibia Fibula Bi [CR] Stat 06/18/20 15:10 CULTURE BLOOD [BC] Urgent 06/18/20 15:20 CULTURE BLOOD [BC] Urgent
--- NOTE | 2020-06-18 18:08 | CT ---
INDICATION: Altered level of consciousness after a fall. CT HEAD WITHOUT CONTRAST: Spiral 3.75 mm axial sections were obtained through the brain without contrast with sagittal and coronal reconstructions as well as axial reconstructions were obtained 06/18/20 and compared with 06/11/18. Total exam DLP was 1425.39 mGy-cm. There is apparently some motion artifact. Minimal calcifications are noted in the internal carotid arteries. There is no shift of midline structures. The ventricles appear more prominent, compatible with progressive central atrophy. No shift of midline structures was seen however. Progressive white matter changes are noted, compatible with moderate microvascular disease that is progressive. No bleeding site or hematoma, or other definite acute intracranial abnormality was identified. There is a focal abnormal area of decreased density in the right basal ganglia which may represent an evolved area of lacunar infarct, which in retrospect may have been present in that area on the previous study of 2018. There is also relatively more prominent focal area of decreased density in the white matter of the right anterior parietal lobe which likely represents a subcortical infarct that is new when compared with the previous study or possibly evolved, compared with the previous examination. The paranasal sinuses showed evidence of small retention cysts at the bases of the maxillary antra. Paranasal sinuses were otherwise well aerated. The mastoid air cells appear to be relatively few bilaterally and normally aerated on the right with some opacified on the left, which could be on the basis of current or previous mastoiditis. IMPRESSION: 1. No definite acute intracranial abnormality. 2. Progressive central atrophy. 3. Progressive white matter changes most likely representing moderate microvascular disease. 4. Findings in the paranasal sinuses and mastoid air cells on the left. Report was called to Dr. Shafer at 1422 hours. [facility]
[2020-06-18] MEDS: Levofloxacin/Dextrose 5%-Water 500 MG in Premix Bag 1 BAG IV SCH (18:14)
--- NOTE | 2020-06-18 18:18 | CR ---
INDICATION: Altered level of consciousness. CHEST, ONE VIEW: An AP upright view of the chest was obtained 06/18/20 and compared with 04/26/20 again revealing parenchymal changes at the left lung base which may be on the basis of fibrosis, atelectasis and pneumonia as well. There is suggestion of previous rib fractures on the left posterolaterally at the level of the lingula. These fractures were apparently visualized on previous left ribs of 02/20/20. If acute fracture site is suspected clinically also, additional rib x-rays may be helpful if symptoms are referable to this area. The heart appears enlarged. Aorta is tortuous with calcification in the arch. Overlying EKG leads are noted. No free air is suggested under the hemidiaphragm leaves. IMPRESSION: Parenchymal changes at the left lung base may represent subsegmental atelectasis, fibrosis and possibly infiltrate of an acute nature - pneumonia is possible. This should be correlated clinically. MTDD
--- NOTE | 2020-06-18 18:23 | CR ---
INDICATION: Fall. PELVIS WITH BILATERAL HIPS: A frontal view of the pelvis with frontal and lateral views of the hips bilaterally were obtained 06/18/20 and compared with a CT of the pelvis dated 06/11/2018, again revealing deformity at the pubic rami bilaterally, compatible with old fracture sites in progress of healing. The hips appear to be negative for an acute fracture or dislocation with a hip pinning device on the left, which appears stable. Sacroiliac joints appear to be intact. Degenerative changes are noted at the hip joints of moderate degree. The joint spaces are fairly well maintained. IMPRESSION: 1. No definite acute fracture or dislocation. 2. Old fractures of the pubic rami. 3. Hip pinning for fracture on the left. 4. Osteoarthritis hip joints and to a mild extent sacroiliac joints. MTDD
--- NOTE | 2020-06-18 18:25 | CR ---
INDICATION: Fall. BILATERAL HUMERI: Frontal and lateral projections of both humeri were obtained and revealed no evidence of an acute fracture, dislocation or other acute bone or joint abnormality. Shoulder and elbow joints appear to be fairly intact. IMPRESSION: No acute fracture or dislocation humeri. MTDD
[2020-06-18] MEDS: Carbidopa/Levodopa 25-100 MG Tab GTUBE SCH (18:30)
--- NOTE | 2020-06-18 18:31 | CR ---
INDICATION: Fall. BILATERAL TIBIA AND FIBULA: Nine images of the tibiae and fibulae were obtained 06/18/20 - no comparisons. Degenerative changes are noted at the knee joints with narrowing of the lateral femorotibial joint space of severe degree and narrowing of the medial femorotibial joint space on the left of moderately severe to severe degree. Hypertrophic changes are more prominent on the right laterally off the femur and tibia and to a milder extent medially on the right, also off the femur and tibia. Hypertrophic changes are also noted at the intercondylar notch and spines on the right and to a lesser extent on the left. Hypertrophic changes are noted medially off the femur and tibia on the left to a milder degree also. Overall bone density appeared to be fairly normal. No acute fracture or dislocation was identified. IMPRESSION: 1. No acute fracture or dislocation. 2. Osteoarthritis at the knee joints bilaterally, right greater than left. MTDD
[2020-06-18] MEDS: Melatonin 3 MG Tab GTUBE SCH (20:22)
[2020-06-18] MEDS: Gabapentin 100 MG Cap GTUBE SCH (20:23)
[2020-06-18] MEDS: Acetaminophen/Codeine 300-30 MG Tab GTUBE SCH (20:23)
[2020-06-18] MEDS: Mirtazapine 15 MG Tab GTUBE SCH (20:24)
[2020-06-18] MEDS: Sertraline 100 MG Tab GTUBE SCH (21:13)
[2020-06-19] MEDS: Carbidopa/Levodopa 25-100 MG Tab GTUBE SCH ×4 (00:42→17:50)
[2020-06-19] MEDS ORDERED: Non-Formulary Medication 1 Each GTUBE SCH (09:00)
--- NOTE | 2020-06-19 09:19 | PCM.PN ---
- General Info Date of Service: 06/19/20 Subjective Update: Gavi admitted last night confusion after fall. This morning she has no complaints. She is on tube feedings. Diagnosed with C. difficile at the residential recently. No fever overnight no cough. Functional Status: Reports: Pain Controlled, Tolerating Diet - Review of Systems Pulmonary: Reports: No Symptoms Cardiovascular: Reports: No Symptoms Gastrointestinal: Reports: No Symptoms Genitourinary: Reports: No Symptoms Musculoskeletal: Reports: No Symptoms - Patient Data Vitals - Most Recent: Last Vital Signs Temp 100.4 F 06/19/20 04:00 Pulse 93 06/19/20 04:00 Resp 21 H 06/19/20 04:00 BP 110/65 06/19/20 04:00 Pulse Ox 96 06/19/20 04:00 Weight - Most Recent: 59.08 kg I&O - Last 24 Hours: Intake & Output 06/18/20 06/19/20 06/19/20 22:59 06:59 14:59 Intake Total 444 Balance 444 Lab Results Last 24 Hours: Laboratory Results - last 24 hr 06/18/20 06/18/20 06/18/20 Range/Units 14:19 15:10 15:10 WBC 8.9 (4.5-12.0) X10-3/uL RBC 3.99 (3.23-5.20) x10(6)uL Hgb 10.5 L (11.5-15.5) g/dL Hct 32.2 (30.0-51.3) % MCV 80.8 (80-96) fL MCH 26.2 L (27.7-33.6) pg MCHC 32.5 (32.2-35.4) g/dL RDW 14.8 (11.5-15.5) % Plt Count 330 (125-369) X10(3)uL MPV 7.8 (7.4-10.4) fL Neut % (Auto) 75.0 (46-82) % Lymph % (Auto) 6.5 L (13-37) % Power % (Auto) 17.4 H (4-12) % Eos % (Auto) 1 (1.0-5.0) % Baso % (Auto) 1 (0-2) % Neut # (Auto) 6.6 (1.6-8.3) # Lymph # (Auto) 0.6 (0.6-5.0) # Power # (Auto) 1.6 H (0.0-1.3) # Eos # (Auto) 0.1 (0.0-0.8) # Baso # (Auto) 0.0 (0.0-0.2) # Add Manual Diff Neutrophils % (Manual) (46-82) % Band Neutrophils % (0-6) % Lymphocytes % (Manual) (13-37) % Monocytes % (Manual) (4-12) % Eosinophils % (Manual) (0-5) % Sodium 136 (135-145) mmol/L Potassium 3.0 L (3.5-5.3) mmol/L Chloride 96 L D (100-110) mmol/L Carbon Dioxide 33 H (21-32) mmol/L BUN 17 (7-18) mg/dL Creatinine 0.9 (0.55-1.02) mg/dL Est Cr Clr Drug Dosing 43.77 mL/min Estimated GFR (MDRD) > 60 (>60) BUN/Creatinine Ratio 18.9 (9-20) Glucose 107 (80-116) mg/dL Lactic Acid (0.4-2.0) mmol/L Calcium 8.4 L (8.6-10.2) mg/dL Total Bilirubin 0.6 (0.1-1.3) mg/dL AST 23 D (5-25) IU/L ALT < 6 L (12-36) U/L Alkaline Phosphatase 125 H (56-112) IU/L Creatine Kinase 112 (60-160) IU/L Troponin I (4.0-60.3) pg/mL Total Protein 7.1 (6.0-8.0) g/dL Albumin 2.6 L (3.2-4.6) g/dL Globulin 4.5 g/dL Albumin/Globulin Ratio 0.6 Urine Color Yellow (YELLOW) Urine Appearance Slightly cloudy (CLEAR) Urine pH 6.5 (5.0-6.5) Ur Specific Closter 1.015 (1.010-1.025) Urine Protein 30 H (NEGATIVE) mg/dL Urine Glucose (UA) Normal (NORMAL) mg/dL Urine Ketones 15 H (NEGATIVE) mg/dL Urine Occult Blood Moderate H (NEGATIVE) Urine Nitrite Positive H (NEGATIVE) Urine Bilirubin Negative (NEGATIVE) Urine Urobilinogen Normal (NEGATIVE) mg/dL Ur Leukocyte Esterase Small H (NEGATIVE) Urine RBC 5-10 H (0-5) Urine WBC 5-10 H (0-5) Ur Squamous Epith Cells Occasional (NS,R,O) Urine Bacteria Many H (NS) SARS Virus RNA (PCR) (NEGATIVE) 06/18/20 06/18/20 06/18/20 Range/Units 15:10 15:10 15:20 WBC (4.5-12.0) X10-3/uL RBC (3.23-5.20) x10(6)uL Hgb (11.5-15.5) g/dL Hct (30.0-51.3) % MCV (80-96) fL MCH (27.7-33.6) pg MCHC (32.2-35.4) g/dL RDW (11.5-15.5) % Plt Count (125-369) X10(3)uL MPV (7.4-10.4) fL Neut % (Auto) (46-82) % Lymph % (Auto) (13-37) % Power % (Auto) (4-12) % Eos % (Auto) (1.0-5.0) % Baso % (Auto) (0-2) % Neut # (Auto) (1.6-8.3) # Lymph # (Auto) (0.6-5.0) # Power # (Auto) (0.0-1.3) # Eos # (Auto) (0.0-0.8) # Baso # (Auto) (0.0-0.2) # Add Manual Diff Neutrophils % (Manual) (46-82) % Band Neutrophils % (0-6) % Lymphocytes % (Manual) (13-37) % Monocytes % (Manual) (4-12) % Eosinophils % (Manual) (0-5) % Sodium (135-145) mmol/L Potassium (3.5-5.3) mmol/L Chloride (100-110) mmol/L Carbon Dioxide (21-32) mmol/L BUN (7-18) mg/dL Creatinine (0.55-1.02) mg/dL Est Cr Clr Drug Dosing mL/min Estimated GFR (MDRD) (>60) BUN/Creatinine Ratio (9-20) Glucose (80-116) mg/dL Lactic Acid 0.9 (0.4-2.0) mmol/L Calcium (8.6-10.2) mg/dL Total Bilirubin (0.1-1.3) mg/dL AST (5-25) IU/L ALT (12-36) U/L Alkaline Phosphatase (56-112) IU/L Creatine Kinase (60-160) IU/L Troponin I 14.5 (4.0-60.3) pg/mL Total Protein (6.0-8.0) g/dL Albumin (3.2-4.6) g/dL Globulin g/dL Albumin/Globulin Ratio Urine Color (YELLOW) Urine Appearance (CLEAR) Urine pH (5.0-6.5) Ur Specific Closter (1.010-1.025) Urine Protein (NEGATIVE) mg/dL Urine Glucose (UA) (NORMAL) mg/dL Urine Ketones (NEGATIVE) mg/dL Urine Occult Blood (NEGATIVE) Urine Nitrite (NEGATIVE) Urine Bilirubin (NEGATIVE) Urine Urobilinogen (NEGATIVE) mg/dL Ur Leukocyte Esterase (NEGATIVE) Urine RBC (0-5) Urine WBC (0-5) Ur Squamous Epith Cells (NS,R,O) Urine Bacteria (NS) SARS Virus RNA (PCR) Negative (NEGATIVE) 06/19/20 06/19/20 Range/Units 07:00 07:00 WBC 8.7 (4.5-12.0) X10-3/uL RBC 3.67 (3.23-5.20) x10(6)uL Hgb 9.3 L (11.5-15.5) g/dL Hct 29.4 L (30.0-51.3) % MCV 80.3 (80-96) fL MCH 25.4 L (27.7-33.6) pg MCHC 31.7 L (32.2-35.4) g/dL RDW 15.1 (11.5-15.5) % Plt Count 316 (125-369) X10(3)uL MPV 7.9 (7.4-10.4) fL Neut % (Auto) (46-82) % Lymph % (Auto) (13-37) % Power % (Auto) (4-12) % Eos % (Auto) (1.0-5.0) % Baso % (Auto) (0-2) % Neut # (Auto) (1.6-8.3) # Lymph # (Auto) (0.6-5.0) # Power # (Auto) (0.0-1.3) # Eos # (Auto) (0.0-0.8) # Baso # (Auto) (0.0-0.2) # Add Manual Diff Yes Neutrophils % (Manual) 60 (46-82) % Band Neutrophils % 11 H (0-6) % Lymphocytes % (Manual) 15 (13-37) % Monocytes % (Manual) 12 (4-12) % Eosinophils % (Manual) 2 (0-5) % Sodium 137 (135-145) mmol/L Potassium 3.3 L (3.5-5.3) mmol/L Chloride 99 L (100-110) mmol/L Carbon Dioxide 31 (21-32) mmol/L BUN 17 (7-18) mg/dL Creatinine 0.9 (0.55-1.02) mg/dL Est Cr Clr Drug Dosing 43.77 mL/min Estimated GFR (MDRD) > 60 (>60) BUN/Creatinine Ratio 18.9 (9-20) Glucose 164 H (80-116) mg/dL Lactic Acid (0.4-2.0) mmol/L Calcium 8.1 L (8.6-10.2) mg/dL Total Bilirubin (0.1-1.3) mg/dL AST (5-25) IU/L ALT (12-36) U/L Alkaline Phosphatase (56-112) IU/L Creatine Kinase (60-160) IU/L Troponin I (4.0-60.3) pg/mL Total Protein (6.0-8.0) g/dL Albumin (3.2-4.6) g/dL Globulin g/dL Albumin/Globulin Ratio Urine Color (YELLOW) Urine Appearance (CLEAR) Urine pH (5.0-6.5) Ur Specific Closter (1.010-1.025) Urine Protein (NEGATIVE) mg/dL Urine Glucose (UA) (NORMAL) mg/dL Urine Ketones (NEGATIVE) mg/dL Urine Occult Blood (NEGATIVE) Urine Nitrite (NEGATIVE) Urine Bilirubin (NEGATIVE) Urine Urobilinogen (NEGATIVE) mg/dL Ur Leukocyte Esterase (NEGATIVE) Urine RBC (0-5) Urine WBC (0-5) Ur Squamous Epith Cells (NS,R,O) Urine Bacteria (NS) SARS Virus RNA (PCR) (NEGATIVE) Pieter Results Last 24 Hours: Microbiology 06/18/20 13:47 Urine Culture - Preliminary Urine, Catheterized Gram Negative Rods Med Orders - Current: Current Medications Acetaminophen (Tylenol) 650 mg GTUBE Q4H PRN PRN Reason: Pain/Fever Acetaminophen/Codeine Phosphate (Tylenol With Codeine No.3 300mg/30mg) 2 tab GTUBE TID [facility] Last Admin: 06/18/20 20:23 Dose: 2 tab Documented by: Carbidopa/Levodopa (Sinemet 25-100 Mg) 2 tab GTUBE Q6H [facility] Last Admin: 06/19/20 05:30 Dose: 2 tab Documented by: Furosemide (Lasix) 40 mg GTUBE DAILY [facility] Gabapentin (Neurontin) 100 mg GTUBE TID [facility] Last Admin: 06/18/20 20:23 Dose: 100 mg Documented by: Levofloxacin/Dextrose 500 mg/ (Premix) 100 mls @ 100 mls/hr IV Q24H [facility] Last Admin: 06/18/20 18:14 Dose: 100 mls/hr Documented by: Lidocaine (Lidoderm 5%) 700 mg TOP DAILY [facility] Magnesium Hydroxide (Milk Of Magnesia) 2,400 mg GTUBE DAILY PRN PRN Reason: Constipation Melatonin (Melatonin) 3 mg GTUBE BEDTIME [facility] Last Admin: 06/18/20 20:22 Dose: 3 mg Documented by: Mirtazapine (Remeron) 45 mg GTUBE BEDTIME [facility] Last Admin: 06/18/20 20:24 Dose: 45 mg Documented by: Miscellaneous Information (Remove Patch) 1 ea TRDERM Q24H [facility] Non-Formulary Medication (L Acidophil/B Lactis/B Longum [Florajen3]) 460 mg GTU BE DAILY [facility] Non-Formulary Medication (Nf Drug) 0 each GTUBE DAILY [facility] Nystatin (Nystop) 0 gm TOP BID PRN PRN Reason: SKIN IRRITATION Sertraline HCl (Zoloft) 200 mg GTUBE BEDTIME [facility] Last Admin: 06/18/20 21:13 Dose: 200 mg Documented by: Sodium Chloride (Saline Flush) 10 ml FLUSH ASDIRECTED PRN PRN Reason: Keep Vein Open Last Admin: 06/18/20 19:15 Dose: 10 ml Documented by: - Exam General: Alert, Cooperative HEENT: Pupils Equal Neck: Supple Lungs: Clear to Auscultation Cardiovascular: Regular Rate GI/Abdominal Exam: Soft, Guarding, Tender (Female) Exam: Deferred Sepsis Event Note - Evaluation Sepsis Screening Result: Sepsis Risk - Focused Exam Vital Signs: Vital Signs Temp Temp Pulse Resp BP Pulse Ox 06/19/20 04:00 100.4 F 93 21 H 110/65 96 06/19/20 00:00 100.4 F 100 21 H 110/65 94 L - Problem List & Annotations (1) Pneumonia SNOMED Code(s): 003209906 Code(s): J18.9 - PNEUMONIA, UNSPECIFIED ORGANISM Status: Acute Current Visit: Yes Qualifiers: Pneumonia type: due to unspecified organism (2) Falls frequently SNOMED Code(s): 192501278 Code(s): R29.6 - REPEATED FALLS Status: Acute Current Visit: Yes (3) Head injury SNOMED Code(s): 41553800 Code(s): S09.90XA - UNSPECIFIED INJURY OF HEAD, INITIAL ENCOUNTER Status: Acute Current Visit: Yes (4) MDD (major depressive disorder) SNOMED Code(s): 429582912 Code(s): F32.9 - MAJOR DEPRESSIVE DISORDER, SINGLE EPISODE, UNSPECIFIED Status: Acute Current Visit: Yes (5) Parkinson disease SNOMED Code(s): 63602886 Code(s): G20 - PARKINSON'S DISEASE Status: Acute Current Visit: Yes (6) Insomnia SNOMED Code(s): 550617023 Code(s): G47.00 - INSOMNIA, UNSPECIFIED Status: Acute Current Visit: Yes (7) Protein-energy malnutrition SNOMED Code(s): 513110662 Code(s): E46 - UNSPECIFIED PROTEIN-CALORIE MALNUTRITION Status: Acute Current Visit: Yes Qualifiers: Protein-calorie malnutrition severity: mild Qualified Code(s): E44.1 - Mild protein-calorie malnutrition (8) Abdominal pain SNOMED Code(s): 77639250 Code(s): R10.9 - UNSPECIFIED ABDOMINAL PAIN Status: Acute Current Visit: Yes Qualifiers: Abdominal location: generalized Qualified Code(s): R10.84 - Generalized abdominal pain (9) C. difficile colitis SNOMED Code(s): 865457604 Code(s): A04.72 - ENTEROCOLITIS D/T CLOSTRIDIUM DIFFICILE, NOT SPCF RECUR Status: Acute Current Visit: Yes (10) G tube feedings SNOMED Code(s): 683261809, 971738211, 792275985 Code(s): Z93.1 - GASTROSTOMY STATUS Status: Acute Current Visit: Yes (11) Palliative care patient SNOMED Code(s): 662489137, 068558814 Code(s): Z51.5 - ENCOUNTER FOR PALLIATIVE CARE Status: Acute Current Visit: Yes - Problem List Review Problem List Initiated/Reviewed/Updated: Yes - My Orders Last 24 Hours: My Active Orders 06/18/20 Dinner NPO [Nothing Per Oral Diet] [DIET] 06/18/20 17:08 Patient Status [ADT] Routine Height and Weight [RC] 06 Oxygen Therapy [RC] PRN Up With Assistance [RC] ASDIRECTED VTE/DVT Education [RC] Per Unit Routine Vital Signs [RC] 00,04,08,12,16,20 06/18/20 17:15 Levofloxacin/Dextrose 5%-Water [Levaquin in D5W 500 MG/100 ML] 500 mg Premix Bag 1 bag IV Q24H 06/18/20 17:42 Acetaminophen [Tylenol] 650 mg GTUBE Q4H PRN Magnesium Hydroxide [Milk of Magnesia] 2,400 mg GTUBE DAILY PRN Nystatin [Nystop] 0 gm TOP BID PRN Code Status [Resuscitation Status] Routine 06/18/20 18:00 Carbidopa/Levodopa [Sinemet 25-100 mg] 2 tab GTUBE Q6H 06/18/20 21:00 Acetaminophen/Codeine [Tylenol with Codeine No.3 300MG/30MG] 2 tab GTUBE TID Gabapentin [Neurontin] 100 mg GTUBE TID Melatonin 3 mg GTUBE BEDTIME Mirtazapine [Remeron] 45 mg GTUBE BEDTIME Sertraline [Zoloft] 200 mg GTUBE BEDTIME 06/19/20 09:00 Furosemide [Lasix] 40 mg GTUBE DAILY L Acidophil/B Lactis/B Longum [Florajen3] 460 mg GTUBE DAILY Lidocaine 5% [Lidoderm 5%] 700 mg TOP DAILY Non-Formulary Medication [NF Drug] 0 each GTUBE DAILY 06/19/20 21:00 Remove Patch 1 ea AGUILAR Q24H - Plan Plan:: Continued IV antibiotics possibly discharge tomorrow morning. She is doing much better today.
[2020-06-19] MEDS: Acetaminophen/Codeine 300-30 MG Tab GTUBE SCH ×3 (09:29→21:59)
[2020-06-19] MEDS: Gabapentin 100 MG Cap GTUBE SCH ×3 (09:30→21:58)
[2020-06-19] MEDS: Furosemide 40 MG Tab GTUBE SCH (09:30)
[2020-06-19] MEDS: Lidocaine 5% 700 MG Patch TOP SCH (12:29)
[2020-06-19] MEDS ORDERED: Carbidopa/Levodopa 25-100 MG Tab ONE (17:47)
[2020-06-19] MEDS: Levofloxacin/Dextrose 5%-Water 500 MG in Premix Bag 1 BAG IV SCH (17:50)
[2020-06-19] MEDS: Melatonin 3 MG Tab GTUBE SCH (21:58)
[2020-06-19] MEDS: Mirtazapine 15 MG Tab GTUBE SCH (21:59)
[2020-06-19] MEDS: Sertraline 100 MG Tab GTUBE SCH (22:00)
[2020-06-19] MEDS: Remove Patch*LIDOCAINE TRDERM SCH (22:00)
[2020-06-20] MEDS: Carbidopa/Levodopa 25-100 MG Tab GTUBE SCH ×5 (01:00→23:33)
--- NOTE | 2020-06-20 08:55 | PCM.PN ---
- General Info Date of Service: 06/20/20 Subjective Update: Gavi has no new complaints. Watery stools reported by the nurse staff community health. No fever. A CT done yesterday showed possible colitis, and subacute rib fractures - Review of Systems HEENT: Reports: No Symptoms Pulmonary: Reports: No Symptoms Cardiovascular: Reports: No Symptoms Gastrointestinal: Reports: Abdominal Pain Genitourinary: Reports: No Symptoms - Patient Data Vitals - Most Recent: Last Vital Signs Temp 98.6 F 06/20/20 04:00 Pulse 91 06/20/20 04:00 Resp 20 06/20/20 04:00 BP 108/58 L 06/20/20 04:00 Pulse Ox 97 06/20/20 04:07 Weight - Most Recent: 59.511 kg I&O - Last 24 Hours: Intake & Output 06/19/20 06/20/20 06/20/20 22:59 06:59 14:59 Intake Total 903 456 Balance 903 456 Pieter Results Last 24 Hours: Microbiology 06/18/20 13:47 Urine Culture - Final Urine, Catheterized Escherichia Coli 06/19/20 15:15 C. difficile Antigen & Toxins A,B - Final Stool / Feces 06/18/20 15:10 Aerobic Blood Culture - Preliminary Blood - Venous NO GROWTH AFTER 1 DAY Anaerobic Blood Culture - Preliminary NO GROWTH AFTER 1 DAY 06/18/20 15:20 Aerobic Blood Culture - Preliminary Blood - Venous - Lab Draw NO GROWTH AFTER 1 DAY Anaerobic Blood Culture - Preliminary NO GROWTH AFTER 1 DAY 06/19/20 12:30 C. difficile Antigen & Toxins A,B - Final Stool / Feces Med Orders - Current: Current Medications Acetaminophen (Tylenol) 650 mg GTUBE Q4H PRN PRN Reason: Pain/Fever Acetaminophen/Codeine Phosphate (Tylenol/Codeine 120-12 Mg/5 Ml) 12.5 ml GTUBE TID [facility] Carbidopa/Levodopa (Sinemet 25-100 Mg) 2 tab GTUBE Q6H [facility] Last Admin: 06/20/20 05:40 Dose: 2 tab Documented by: Furosemide (Lasix) 40 mg GTUBE DAILY [facility] Last Admin: 06/19/20 09:30 Dose: 40 mg Documented by: Gabapentin (Neurontin) 100 mg GTUBE TID [facility] Last Admin: 06/19/20 21:58 Dose: 100 mg Documented by: Levofloxacin/Dextrose 500 mg/ (Premix) 100 mls @ 100 mls/hr IV Q24H [facility] Last Admin: 06/19/20 17:50 Dose: 100 mls/hr Documented by: Lidocaine (Lidoderm 5%) 700 mg TOP DAILY [facility] Last Admin: 06/19/20 12:29 Dose: 700 mg Documented by: Magnesium Hydroxide (Milk Of Magnesia) 2,400 mg GTUBE DAILY PRN PRN Reason: Constipation Melatonin (Melatonin) 3 mg GTUBE BEDTIME [facility] Last Admin: 06/19/20 21:58 Dose: 3 mg Documented by: Mirtazapine (Remeron) 45 mg GTUBE BEDTIME [facility] Last Admin: 06/19/20 21:59 Dose: 45 mg Documented by: Miscellaneous Information (Remove Patch) 1 ea TRDERM Q24H [facility] Last Admin: 06/19/20 22:00 Dose: 1 ea Documented by: Non-Formulary Medication (L Acidophil/B Lactis/B Longum [Florajen3]) 460 mg GTUBE DAILY [facility] Non-Formulary Medication (Nf Drug) 0 each GTUBE DAILY [facility] Nystatin (Nystop) 0 gm TOP BID PRN PRN Reason: SKIN IRRITATION Last Admin: 06/20/20 01:00 Dose: 1 applic Documented by: Sertraline HCl (Zoloft) 200 mg GTUBE BEDTIME [facility] Last Admin: 06/19/20 22:00 Dose: 200 mg Documented by: Sodium Chloride (Saline Flush) 10 ml FLUSH ASDIRECTED PRN PRN Reason: Keep Vein Open Last Admin: 06/18/20 19:15 Dose: 10 ml Documented by: Discontinued Medications Acetaminophen/Codeine Phosphate (Tylenol With Codeine No.3 300mg/30mg) 2 tab GTUBE TID [facility] Last Admin: 06/19/20 21:59 Dose: 2 tab Documented by: Carbidopa/Levodopa (Sinemet 25-100 Mg) Confirm Administered Dose 1 tab .ROUTE .STK-MED ONE Stop: 06/19/20 17:48 Last Admin: 06/19/20 18:54 Dose: Not Given Documented by: - Exam General: Alert, Oriented Lungs: Rales Cardiovascular: Regular Rate, Irregular Rhythm GI/Abdominal Exam: Soft, Distended Back Exam: Normal Inspection Psy/Mental Status: Alert, Normal Affect Sepsis Event Note - Evaluation Sepsis Screening Result: No Definite Risk - Focused Exam Vital Signs: Vital Signs Temp Pulse Resp BP Pulse Ox Pulse Ox 06/20/20 04:07 97 06/20/20 04:00 98.6 F 91 20 108/58 L 97 06/20/20 00:00 20 - Problem List & Annotations (1) Pneumonia SNOMED Code(s): 917270843 Code(s): J18.9 - PNEUMONIA, UNSPECIFIED ORGANISM Status: Acute Current Visit: Yes Qualifiers: Pneumonia type: due to unspecified organism (2) Falls frequently SNOMED Code(s): 983104807 Code(s): R29.6 - REPEATED FALLS Status: Acute Current Visit: Yes (3) Head injury SNOMED Code(s): 96074383 Code(s): S09.90XA - UNSPECIFIED INJURY OF HEAD, INITIAL ENCOUNTER Status: Acute Current Visit: Yes Qualifiers: Encounter type: initial encounter Qualified Code(s): S09.90XA - Unspecified injury of head, initial encounter (4) MDD (major depressive disorder) SNOMED Code(s): 044064578 Code(s): F32.9 - MAJOR DEPRESSIVE DISORDER, SINGLE EPISODE, UNSPECIFIED Status: Acute Current Visit: Yes Qualifiers: Major depression recurrence: recurrent (5) Parkinson disease SNOMED Code(s): 49495395 Code(s): G20 - PARKINSON'S DISEASE Status: Acute Current Visit: Yes (6) Insomnia SNOMED Code(s): 956677876 Code(s): G47.00 - INSOMNIA, UNSPECIFIED Status: Acute Current Visit: Yes Qualifiers: Insomnia type: primary Qualified Code(s): F51.01 - Primary insomnia (7) Protein-energy malnutrition SNOMED Code(s): 817237586 Code(s): E46 - UNSPECIFIED PROTEIN-CALORIE MALNUTRITION Status: Acute Current Visit: Yes Qualifiers: Protein-calorie malnutrition severity: mild Qualified Code(s): E44.1 - Mild protein-calorie malnutrition (8) Asymptomatic bacteriuria SNOMED Code(s): 924467540 Code(s): R82.71 - BACTERIURIA Status: Acute Current Visit: Yes (9) C. difficile colitis SNOMED Code(s): 419821630 Code(s): A04.72 - ENTEROCOLITIS D/T CLOSTRIDIUM DIFFICILE, NOT SPCF RECUR Status: Acute Current Visit: Yes (10) Rib fractures SNOMED Code(s): 83413862 Code(s): S22.39XA - FRACTURE OF ONE RIB, UNSP SIDE, INIT FOR CLOS FX Status: Acute Current Visit: Yes Qualifiers: Encounter type: subsequent encounter - Problem List Review Problem List Initiated/Reviewed/Updated: Yes - My Orders Last 24 Hours: My Active Orders 06/19/20 09:00 Furosemide [Lasix] 40 mg GTUBE DAILY L Acidophil/B Lactis/B Longum [Florajen3] 460 mg GTUBE DAILY Lidocaine 5% [Lidoderm 5%] 700 mg TOP DAILY Non-Formulary Medication [NF Drug] 0 each GTUBE DAILY 06/19/20 12:13 Abdomen Pelvis wo Cont [CT] Routine 06/19/20 15:52 CLOSTRIDIUM DIFF PCR CONF [RM] Routine 06/19/20 21:00 Remove Patch 1 ea TRDERM Q24H 06/20/20 08:52 RT Incentive Spirometry [RC] Q4HWA 06/20/20 09:00 Acetaminophen/Codeine [Tylenol/Codeine 120-12 MG/5 ML] 12.5 ml GTUBE TID metroNIDAZOLE 250 mg PO Q8H 06/21/20 05:11 CBC WITH AUTO DIFF [HEME] AM COMPREHENSIVE METABOLIC PN,CMP [CHEM] AM - Plan Plan:: I will initiate C diff treatment as we wait for lab confirmation. Start incentive spirometry. LMWH for DVT prophylaxis.
[2020-06-20] MEDS ORDERED: Enoxaparin 30 MG/0.3 ML Syringe SUBCUT SCH (09:00)
[2020-06-20] MEDS ORDERED: metroNIDAZOLE 250 MG Tab PO SCH (09:00)
[2020-06-20] MEDS: Gabapentin 100 MG Cap GTUBE SCH ×3 (09:23→21:02)
[2020-06-20] MEDS: Acetaminophen/Codeine 120-12 MG/5 ML Soln 5 ML UD Cup GTUBE SCH ×3 (09:23→21:02)
[2020-06-20] MEDS: Furosemide 40 MG Tab GTUBE SCH (09:23)
[2020-06-20] MEDS: Lidocaine 5% 700 MG Patch TOP SCH (10:06)
[2020-06-20] MEDS: metroNIDAZOLE 250 MG Tab GTUBE SCH ×2 (10:08→17:19)
[2020-06-20] MEDS: Non-Formulary Medication 1 Each (L Acidophil/B Lactis/B Longum [Florajen3] 460 MG) GTUBE SCH (16:56)
[2020-06-20] MEDS: Levofloxacin/Dextrose 5%-Water 500 MG in Premix Bag 1 BAG IV SCH (17:19)
[2020-06-20] MEDS: Ketorolac 15 MG/ML SDV IVPUSH PRN (17:20)
[2020-06-20] MEDS: Sodium Chloride 0.9% 10 ML Syringe FLUSH PRN (17:20)
[2020-06-20] MEDS: Sertraline 100 MG Tab GTUBE SCH (21:01)
[2020-06-20] MEDS: Mirtazapine 15 MG Tab GTUBE SCH (21:02)
[2020-06-20] MEDS: Melatonin 3 MG Tab GTUBE SCH (21:02)
[2020-06-20] MEDS: Remove Patch*LIDOCAINE TRDERM SCH (21:37)
[2020-06-21] MEDS: metroNIDAZOLE 250 MG Tab GTUBE SCH (02:00)
[2020-06-21] MEDS: Carbidopa/Levodopa 25-100 MG Tab GTUBE SCH ×3 (05:17→17:37)
[2020-06-21] MEDS: Ketorolac 15 MG/ML SDV IVPUSH PRN (05:21)
[2020-06-21] MEDS: Sodium Chloride 0.9% 10 ML Syringe FLUSH PRN (05:22)
--- NOTE | 2020-06-21 08:34 | PCM.PN ---
- General Info Date of Service: 06/21/20 Subjective Update: Gavi has no new complaints. Watery stools reported by the administrative staff supervisor. No fever. A CT done Sunday showed possible colitis, and subacute rib fractures Functional Status: Reports: Pain Controlled - Review of Systems Pulmonary: Reports: No Symptoms Cardiovascular: Reports: No Symptoms Gastrointestinal: Reports: Abdominal Pain, Diarrhea Genitourinary: Reports: Incontinence - Patient Data Vitals - Most Recent: Last Vital Signs Temp 98.4 F 06/21/20 04:00 Pulse 82 06/21/20 04:00 Resp 20 06/21/20 04:00 BP 108/62 06/21/20 04:00 Pulse Ox 97 06/21/20 04:00 Weight - Most Recent: 58.967 kg I&O - Last 24 Hours: Intake & Output 06/20/20 06/21/20 06/21/20 22:59 06:59 14:59 Intake Total 736 Balance 736 Lab Results Last 24 Hours: Laboratory Results - last 24 hr 06/21/20 06/21/20 Range/Units 06:35 06:35 WBC 9.7 (4.5-12.0) X10-3/uL RBC 3.76 (3.23-5.20) x10(6)uL Hgb 10.0 L (11.5-15.5) g/dL Hct 30.3 (30.0-51.3) % MCV 80.4 (80-96) fL MCH 26.4 L (27.7-33.6) pg MCHC 32.9 (32.2-35.4) g/dL RDW 14.9 (11.5-15.5) % Plt Count 365 (125-369) X10(3)uL MPV 7.7 (7.4-10.4) fL Neut % (Auto) 68.4 (46-82) % Lymph % (Auto) 13.8 (13-37) % Cooke % (Auto) 12.3 H (4-12) % Eos % (Auto) 5 (1.0-5.0) % Baso % (Auto) 0 (0-2) % Neut # (Auto) 6.7 (1.6-8.3) # Lymph # (Auto) 1.3 (0.6-5.0) # Cooke # (Auto) 1.2 (0.0-1.3) # Eos # (Auto) 0.5 (0.0-0.8) # Baso # (Auto) 0.0 (0.0-0.2) # Sodium 139 (135-145) mmol/L Potassium 3.3 L (3.5-5.3) mmol/L Chloride 100 (100-110) mmol/L Carbon Dioxide 34 H (21-32) mmol/L BUN 21 H (7-18) mg/dL Creatinine 0.9 (0.55-1.02) mg/dL Est Cr Clr Drug Dosing 43.77 mL/min Estimated GFR (MDRD) > 60 (>60) BUN/Creatinine Ratio 23.3 H (9-20) Glucose 143 H (80-116) mg/dL Calcium 8.5 L (8.6-10.2) mg/dL Total Bilirubin 0.3 (0.1-1.3) mg/dL AST 62 H D (5-25) IU/L ALT 7 L D (12-36) U/L Alkaline Phosphatase 135 H (56-112) IU/L Total Protein 6.5 (6.0-8.0) g/dL Albumin 2.1 L (3.2-4.6) g/dL Globulin 4.4 g/dL Albumin/Globulin Ratio 0.5 Pieter Results Last 24 Hours: Microbiology 06/18/20 15:10 Aerobic Blood Culture - Preliminary Blood - Venous NO GROWTH AFTER 2 DAYS Anaerobic Blood Culture - Preliminary NO GROWTH AFTER 2 DAYS 06/18/20 15:20 Aerobic Blood Culture - Preliminary Blood - Venous - Lab Draw NO GROWTH AFTER 2 DAYS Anaerobic Blood Culture - Preliminary NO GROWTH AFTER 2 DAYS 06/19/20 15:52 Clostridioides difficile (PCR) - Final Stool / Feces Positive C. Diff Toxin Med Orders - Current: Current Medications Acetaminophen (Tylenol) 650 mg GTUBE Q4H PRN PRN Reason: Pain/Fever Acetaminophen/Codeine Phosphate (Tylenol/Codeine 120-12 Mg/5 Ml) 12.5 ml GTUBE TID [facility] Last Admin: 06/20/20 21:02 Dose: 12.5 ml Documented by: Carbidopa/Levodopa (Sinemet 25-100 Mg) 2 tab GTUBE Q6H [facility] Last Admin: 08/17/20 05:17 Dose: 2 tab Documented by: Enoxaparin Sodium (Lovenox) 40 mg SUBCUT Q24H [facility] Furosemide (Lasix) 40 mg GTUBE DAILY [facility] Last Admin: 06/20/20 09:23 Dose: 40 mg Documented by: Gabapentin (Neurontin) 100 mg GTUBE TID [facility] Last Admin: 06/20/20 21:02 Dose: 100 mg Documented by: Levofloxacin/Dextrose 500 mg/ (Premix) 100 mls @ 100 mls/hr IV Q24H [facility] Last Admin: 06/20/20 17:19 Dose: 100 mls/hr Documented by: Ketorolac Tromethamine (Toradol) 15 mg IVPUSH Q6H PRN PRN Reason: Pain Stop: 06/25/20 16:16 Last Admin: 06/21/20 05:21 Dose: 15 mg Documented by: Lidocaine (Lidoderm 5%) 700 mg TOP DAILY [facility] Last Admin: 06/20/20 10:06 Dose: 700 mg Documented by: Magnesium Hydroxide (Milk Of Magnesia) 2,400 mg GTUBE DAILY PRN PRN Reason: Constipation Melatonin (Melatonin) 3 mg GTUBE BEDTIME [facility] Last Admin: 06/20/20 21:02 Dose: 3 mg Documented by: Metronidazole (Metronidazole) 250 mg GTUBE Q8H [facility] Last Admin: 06/21/20 02:00 Dose: 250 mg Documented by: Mirtazapine (Remeron) 45 mg GTUBE BEDTIME [facility] Last Admin: 06/20/20 21:02 Dose: 45 mg Documented by: Miscellaneous Information (Remove Patch) 1 ea TRDERM Q24H [facility] Last Admin: 06/20/20 21:37 Dose: 1 ea Documented by: Non-Formulary Medication (Nf Drug) 0 each GTUBE DAILY [facility] Nystatin (Nystop) 0 gm TOP BID PRN PRN Reason: SKIN IRRITATION Last Admin: 06/20/20 01:00 Dose: 1 applic Documented by: Sertraline HCl (Zoloft) 200 mg GTUBE BEDTIME [facility] Last Admin: 06/20/20 21:01 Dose: 200 mg Documented by: Sodium Chloride (Saline Flush) 10 ml FLUSH ASDIRECTED PRN PRN Reason: Keep Vein Open Last Admin: 06/21/20 05:22 Dose: 10 ml Documented by: Discontinued Medications Acetaminophen/Codeine Phosphate (Tylenol With Codeine No.3 300mg/30mg) 2 tab GTUBE TID [facility] Last Admin: 06/19/20 21:59 Dose: 2 tab Documented by: Carbidopa/Levodopa (Sinemet 25-100 Mg) Confirm Administered Dose 1 tab .ROUTE . STK-MED ONE Stop: 06/19/20 17:48 Last Admin: 06/19/20 18:54 Dose: Not Given Documented by: Enoxaparin Sodium (Lovenox) 30 mg SUBCUT Q24H [facility] Last Admin: 06/20/20 10:05 Dose: 30 mg Documented by: Metronidazole (Metronidazole) 250 mg PO Q8H [facility] Last Admin: 06/20/20 10:08 Dose: Not Given Documented by: Non-Formulary Medication (L Acidophil/B Lactis/B Longum [[email or web address]]) 460 mg GTUBE DAILY [facility] Last Admin: 06/20/20 16:56 Dose: Not Given Documented by: - Exam Quality Assessment: Supplemental Oxygen General: Alert, Oriented Neck: Supple Lungs: Clear to Auscultation Cardiovascular: Regular Rhythm, Murmurs GI/Abdominal Exam: Normal Bowel Sounds, Soft Sepsis Event Note - Evaluation Sepsis Screening Result: No Definite Risk - Focused Exam Vital Signs: Vital Signs Temp Pulse Resp BP Pulse Ox 06/21/20 04:00 98.4 F 82 20 108/62 97 06/21/20 00:00 98.4 F 84 20 104/62 97 - Problem List & Annotations (1) Pneumonia SNOMED Code(s): 974547449 Code(s): J18.9 - PNEUMONIA, UNSPECIFIED ORGANISM Status: Acute Current Visit: Yes Qualifiers: Pneumonia type: due to unspecified organism (2) Falls frequently SNOMED Code(s): 647143871 Code(s): R29.6 - REPEATED FALLS Status: Acute Current Visit: Yes (3) Head injury SNOMED Code(s): 54351291 Code(s): S09.90XA - UNSPECIFIED INJURY OF HEAD, INITIAL ENCOUNTER Status: Acute Current Visit: Yes Qualifiers: Encounter type: initial encounter Qualified Code(s): S09.90XA - Unspecified injury of head, initial encounter (4) MDD (major depressive disorder) SNOMED Code(s): 590247167 Code(s): F32.9 - MAJOR DEPRESSIVE DISORDER, SINGLE EPISODE, UNSPECIFIED Status: Acute Current Visit: Yes Qualifiers: Major depression recurrence: recurrent (5) Parkinson disease SNOMED Code(s): 00530339 Code(s): G20 - PARKINSON'S DISEASE Status: Acute Current Visit: Yes (6) Insomnia SNOMED Code(s): 581505897 Code(s): G47.00 - INSOMNIA, UNSPECIFIED Status: Acute Current Visit: Yes Qualifiers: Insomnia type: primary Qualified Code(s): F51.01 - Primary insomnia (7) Protein-energy malnutrition SNOMED Code(s): 696974406 Code(s): E46 - UNSPECIFIED PROTEIN-CALORIE MALNUTRITION Status: Acute Current Visit: Yes Qualifiers: Protein-calorie malnutrition severity: mild Qualified Code(s): E44.1 - Mild protein-calorie malnutrition (8) Asymptomatic bacteriuria SNOMED Code(s): 019956708 Code(s): R82.71 - BACTERIURIA Status: Acute Current Visit: Yes (9) C. difficile colitis SNOMED Code(s): 878371525 Code(s): A04.72 - ENTEROCOLITIS D/T CLOSTRIDIUM DIFFICILE, NOT SPCF RECUR Status: Acute Current Visit: Yes (10) Rib fractures SNOMED Code(s): 20031374 Code(s): S22.39XA - FRACTURE OF ONE RIB, UNSP SIDE, INIT FOR CLOS FX Status: Acute Current Visit: Yes Qualifiers: Encounter type: subsequent encounter - Problem List Review Problem List Initiated/Reviewed/Updated: Yes - My Orders Last 24 Hours: My Active Orders 06/20/20 08:52 RT Incentive Spirometry [RC] Q4HWA 06/20/20 09:00 Acetaminophen/Codeine [Tylenol/Codeine 120-12 MG/5 ML] 12.5 ml GTUBE TID 06/20/20 10:07 metroNIDAZOLE 250 mg GTUBE Q8H 06/20/20 16:16 Ketorolac [Toradol] 15 mg IVPUSH Q6H PRN 06/21/20 09:00 Enoxaparin [Lovenox] 40 mg SUBCUT Q24H 06/22/20 05:11 BASIC METABOLIC PANEL,BMP [CHEM] AM CBC WITH AUTO DIFF [HEME] AM - Plan Plan:: We'll continue with the Flagyl and Levaquin. The test confirms that she has active C. difficile colitis. I will also placed a Reyes catheter due to incontinence and excoriation of the perianal area.Repeat labs in AM
[2020-06-21] MEDS ORDERED: Nystatin Topical Powder 15 GM Bottle TOP PRN (08:41)
[2020-06-21] MEDS ORDERED: Magnesium Hydroxide 400 MG/5 ML Susp 30 ML Cup GTUBE PRN (09:00)
[2020-06-21] MEDS ORDERED: Vancomycin 125 MG Cap GTUBE SCH (10:00)
[2020-06-21] MEDS: Lidocaine 5% 700 MG Patch TOP SCH (10:21)
[2020-06-21] MEDS: Furosemide 40 MG Tab GTUBE SCH (10:21)
[2020-06-21] MEDS: Enoxaparin 40 MG/0.4 ML Syringe SUBCUT SCH (10:22)
[2020-06-21] MEDS: Acetaminophen/Codeine 120-12 MG/5 ML Soln 5 ML UD Cup GTUBE SCH ×3 (10:22→20:36)
[2020-06-21] MEDS: Gabapentin 100 MG Cap GTUBE SCH ×3 (10:22→20:36)
[2020-06-21] MEDS: Vancomycin 125 MG/5 ML ML Oral Solution PO SCH ×4 (10:23→20:37)
[2020-06-21] MEDS: Melatonin 3 MG Tab GTUBE SCH (20:31)
[2020-06-21] MEDS: Mirtazapine 15 MG Tab GTUBE SCH (20:31)
[2020-06-21] MEDS: Remove Patch*LIDOCAINE TRDERM SCH (20:31)
[2020-06-21] MEDS: Sertraline 100 MG Tab GTUBE SCH (20:32)
[2020-06-22] MEDS: Carbidopa/Levodopa 25-100 MG Tab GTUBE SCH ×3 (01:08→11:30)
[2020-06-22] MEDS: Acetaminophen/Codeine 120-12 MG/5 ML Soln 5 ML UD Cup GTUBE SCH (09:39)
[2020-06-22] MEDS: Vancomycin 125 MG/5 ML ML Oral Solution PO SCH (09:40)
[2020-06-22] MEDS: Furosemide 40 MG Tab GTUBE SCH (09:41)
[2020-06-22] MEDS: Gabapentin 100 MG Cap GTUBE SCH (09:41)
[2020-06-22] MEDS: Lidocaine 5% 700 MG Patch TOP SCH (09:42)
[2020-06-22] MEDS: Enoxaparin 40 MG/0.4 ML Syringe SUBCUT SCH (09:59)
[2020-06-22] MEDS ORDERED: Vancomycin 125 MG/5 ML ML Oral Solution SCH (13:00)
--- NOTE | 2020-06-23 03:48 | DISCH ---
DISCHARGE DATE: 06/22/2020 REASON FOR ADMISSION: 1. Confusion. 2. Recent fall. 3. Possible pneumonia. DISCHARGE DIAGNOSIS: Clostridium difficile colitis. BRIEF HISTORY: This is a 79-year-old female who had fallen and came in because of confusion and alteration of mental status. Initially, workup revealed some atelectasis in the ribs, which was confused for pneumonia. She was started on Rocephin and azithromycin. She was noted to have copious amounts of stools though she was on G-tube feedings. C difficile done was positive for antigen and toxin. She was started on vancomycin orally. A CT of the abdomen and pelvis revealed subacute old rib fractures. She was rehydrated and was stable enough on the to go home on oral vancomycin to complete a 14-day course. Probiotic was discontinued while she is on the antibiotic. [facility]. I spent more than 35 minutes in the discharge of the patient. /[id number] ERROL/SANDEEP CONNELLY
== END 2020-06-22 12:50 | DRG 372 ==
LOC: FB.ED 13:18 → FB.MS 17:00
PROVIDERS: ADMIT Emergency Medicine; ATTEND Family Medicine
DX: N39.0 Urinary tract infection, site not specified (principal); J18.9 Pneumonia, unspecified organism; E87.6 Hypokalemia; A04.72 Enterocolitis due to Clostridium difficile, not specified as recurrent; W07.XXXA Fall from chair, initial encounter; Z91.81 History of falling; Y92.129 Unspecified place in nursing home as the place of occurrence of the external cause; S22.49XA Multiple fractures of ribs, unspecified side, initial encounter for closed fracture; J98.11 Atelectasis; M62.82 Rhabdomyolysis; E44.1 Mild protein-calorie malnutrition; W19.XXXA Unspecified fall, initial encounter; R13.10 Dysphagia, unspecified; H54.7 Unspecified visual loss; H35.30 Unspecified macular degeneration; H52.10 Myopia, unspecified eye; H52.209 Unspecified astigmatism, unspecified eye; H52.4 Presbyopia; I50.9 Heart failure, unspecified; I80.9 Phlebitis and thrombophlebitis of unspecified site; K59.09 Other constipation; R33.9 Retention of urine, unspecified; G89.29 Other chronic pain; Z88.8 Allergy status to other drugs, medicaments and biological substances; M54.9 Dorsalgia, unspecified; M19.90 Unspecified osteoarthritis, unspecified site; M81.0 Age-related osteoporosis without current pathological fracture; M54.5 Low back pain; G20 Parkinson's disease; F32.9 Major depressive disorder, single episode, unspecified; G47.00 Insomnia, unspecified; R29.6 Repeated falls; S09.90XA Unspecified injury of head, initial encounter; R82.71 Bacteriuria; Z20.828 Contact with and (suspected) exposure to other viral communicable diseases; Z91.040 Latex allergy status; Z88.0 Allergy status to penicillin; Z98.41 Cataract extraction status, right eye; Z98.42 Cataract extraction status, left eye; Z98.49 Cataract extraction status, unspecified eye; Z87.01 Personal history of pneumonia (recurrent); Z93.1 Gastrostomy status; Z87.440 Personal history of urinary (tract) infections; Z88.1 Allergy status to other antibiotic agents; Z79.899 Other long term (current) drug therapy; Z68.22 Body mass index [BMI] 22.0-22.9, adult
CPT/HCPCS: 36415; 51702; 70450; 71045; 73060-50; 73521; 73590-50; 74018; 74176; 80048; 80053; 81001; 82550; 83605; 84484; 85025; 87040; 87086; 87088; 87186; 87230; 87493; 93005; 94150; 99285; 99285-25; A9270-GY; J1650; J1885; J1956; U0002